=== PATIENT | male | born 1945 | race Caucasian/White ===

== ENCOUNTER 2023-12-29 09:23 | Outpatient (REF) | payer MEDICARE, OTHER, SELFPAY ==
[2023-12-29] VITALS (15 sets, daily range): BP systolic 60–183; BP diastolic 66–93
[2023-12-29 10:14] LABS: Glucose - Point of Care 198 mg/dl (70-99)
[2023-12-29 10:37] LABS: Hematocrit 30.7 % (39.0-52.0); Hemoglobin 9.9 g/dL (13.0-18.0); Mean Corp Hgb Conc. 32.2 g/dL (33.0-37.0); Mean Corpuscular Hgb 25.8 pg (27.0-31.0); Mean Corpuscular Volume 80.2 fL (80.0-94.0); Mean Platelet Volume 9.9 fL (7.4-10.4); Platelet Count 328 10^3/uL (130-400); Red Blood Cell Count 3.83 10^6/uL (4.70-6.10); Red Cell Dist. Width 17.2 % (11.5-14.5); White Blood Cell Count 8.2 10^3/uL (4.8-10.8)
[2023-12-29 10:40] LABS: INR 1.23; PT 15.3 Sec (11.4-14.6)
[2023-12-29 12:13] LABS: Glucose - Point of Care 183 mg/dl (70-99)
== END 2023-12-29 15:00 | disposition home or self-care (01) ==
LOC: RADI 09:23
PROVIDERS: Radiology Vascular & Interventional Radiology; ATTENDING PHYSICIAN Internal Medicine Hematology & Oncology; FAMILY PHYSICIAN Family Medicine
DX: C34.31 Malignant neoplasm of lower lobe, right bronchus or lung (principal); D68.8 Other specified coagulation defects
CPT/HCPCS: 88305; 32408; 71045; 82962; 85027; 85610; 88333; 99152; 99153

== ENCOUNTER 2024-02-21 09:45 | Emergency (ER) | payer MEDICARE, OTHER, SELFPAY ==
[2024-02-21 09:47] VITALS: BP 137/84
[2024-02-21 10:10] VITALS: BMI 26.8
--- NOTE | 2024-02-21 10:28 | ED.GENMED ---
History of Present Illness
General
Chief Complaint: Back Pain
Source: patient
Time Seen by Provider: 02/21/24 09:53
Travel History
Have you had any contact with someone who has COVID-19?: No
Do you have any symptoms of coronavirus? Fever > 100 degrees, chills, cough, shortness of breath, sore throat, loss of taste or smell, muscle aches, or headache?: No
History of Present Illness
History of Present Illness:
This patient is a 78-year-old male who was recently diagnosed with stage IIIb adenocarcinoma, right lung mass. He has been resistant to treatment with chemotherapy or radiation. He states that he was put on some sort of 'cancer medicine' this
week, but has not been taking it because of residual nausea related to this. Patient presents to the emergency department with complaints of right mid back pain that is been present for months but seem to get worse last night. The pain seems to be
worse when he walks but not specifically with certain movements. The pain is not pleuritic in nature and patient is fully anticoagulated. He denies hemoptysis, fever, chills, dyspnea, anterior chest pain, abdominal pain, vomiting. He does have a
cough for the past couple weeks which he was told by his oncologist he should expect. He describes the pain as 'sharp' and relatively constant.
Past History
Past History
ED Past Medical History: Arrthythmia (Atrial fib), CAD, COPD, CVA (Left side weakness), GERD, HTN, Hypercholesterolemia, NIDDM, [place] and Other (CPAP for sleep apnea, sleep apnea)
ED Past Surgical History: Appendectomy, Cardiac (CABG), Cholecystectomy, Orthopedic (right knee, Left elbow) and Other (Cataracts)
Patient has exhibited threatening behavior?: No
PSI?: No
Social History
Tobacco: Former smoker
Alcohol: Occasional
Drug: None
Personal:
Phy Exam
Physical Exam
Physical Exam:
GENERAL: Alert , in no apparent distress
EYE: pupils equal and reactive
NECK: Supple, no significant adenopathy.
ENT: o/p clr, mmm.
CARDIAC: Regular rate and rhythm .
LUNGS: Clear breath sounds bilaterally, no acute respiratory distress, no wheezes/rales/rhonchi.
ABDOMEN: Soft, without focal tenderness, no r/g, no cvat
NEUROLOGICAL: Alert and oriented, no focal neuro deficits
SKIN: Warm and dry, skin intact.
MUSCULOSKELETAL: No edema, well perfused.
PSYCH: Normal and appropriate interaction.
BACK: no midline ttp, no rash/swelling/skin changes. Moves about bed easily.
Course
Orders/Labs/Results
Orders:
Orders
02/21/24 10:31
Electrocardiogram (*1) Stat
Reason for Study: Other
Other Reason for Exam: chest pain
Cardiac Monitoring- Treatment ONCE
EKG- Treatment ONCE
Morphine Sulfate 4 mg IV NOW STA
Pulse Ox/cont/shift [RESP] Stat
Quantity: 1
02/21/24 10:32
CR Chest - 2 Views Urgent
Comment:
Reason For Exam: R mid post thorax pain, hx lung ca
02/21/24 11:24
Complete Blood Count/No Diff Urgent
Comprehensive Metabolic Panel Urgent
Abnormal Lab Results
02/21/24
11:24
RBC 4.23 L 10^6/uL
(4.70-6.10)
Hgb 10.7 L g/dL
(13.0-18.0)
Hct 34.6 L %
(39.0-52.0)
MCH 25.3 L pg
(27.0-31.0)
MCHC 30.9 L g/dL
(33.0-37.0)
RDW 17.2 H %
(11.5-14.5)
Carbon Dioxide 18 L mmol/L
(22-30)
BUN 23 H mg/dl
(9-20)
Creatinine 1.4 H mg/dL
(0.7-1.3)
Glucose 224 H mg/dl
(70-99)
02/21/24 11:24
02/21/24 11:24
Vital Signs
Initial and Last Documented VS:
Initial Vital Signs
Temp Pulse Resp BP Pulse Ox
98.7 F 95 16 137/84 98
02/21/24 09:47 02/21/24 09:47 02/21/24 09:47 02/21/24 09:47 02/21/24 09:47
Last Documented Vital Signs
Temp Pulse Resp BP Pulse Ox
98.7 F 75 15 162/78 98
02/21/24 09:47 02/21/24 11:30 02/21/24 11:30 02/21/24 11:00 02/21/24 11:30
*Critical Care Note
Total Time (30-74mins, 75-104mins- exclusive of procedures): Not Applicable
Update Note
Update Note:
Patient presents to the Emergency Department with mid back pain___
Number and Complexity of Problems Addressed at the Encounter
� Chronic conditions affecting care:
� Acute Exacerbation and/or Progression of Chronic Illness:
� Differential Diagnosis includes: But not limited to muscular strain, cancer related pain, mets, nerve impingement, effusion, etc.
Amount and/or Complexity of Data to be Reviewed and Analyzed
� I performed an independent evaluation of and my interpretation is:
EKG: read by me, nsr, no acute ST elevation, nonspec st/t flat
CT:
Xrays: unchanged, mass noted
Laboratory Studies:baseline anemia, baseline renal insuffic, hyperglycem without acidosis
Other:
� Review of other/old records reveals:
� Clinical information was obtained by an independent historian:
� Prescriptions/Medications Considered but not given:
� Further testing considered but not performed:
Risk of Complications and/or Morbidity or Mortality of Patient Management
� Social determinants of health affecting care:
� Discussion with other providers (PCP, Hospitalists, Consultants, etc):
� Escalation of care including admission/observation vs risk of discharge considered: 1159am Pt comfortable, smiling, in nad. Pain resolved. Discussed with patient and his significant other, Mirna, who is now bedside regarding
her testing here, and importance of follow-up as ED based testing is not all inclusive for all potential etiologies for this pain although I doubt a serious etiology. No neurological findings, no hemoptysis or bleeding. I think PE is very unlikely
given patient is fully anticoag waited. Discussed with patient and another importance of follow-up and reasons to return to the ER.
ED Attending Note
-
Portions of this chart may have been created with voice recognition software.� Occasional wrong word or��sound alike� substitutions may have occurred due to the inherent limitations of voice recognition software.
Discharge Plan
Departure
Patient Disposition: Home (Routine Discharge)
Date of Disposition: 02/21/24
Time of Disposition: 12:03
Patient with high blood pressure during this ER visit?: Yes
Condition: Good
Discharge Problem:
Back pain
Instructions: Upper Back Pain (DC), BLOOD PRESSURE
Prescriptions:
New
tramadol 50 mg tablet
100 mg PO BID Qty: 24 0RF
No Action
rosuvastatin [Crestor] 40 MG tablet
40 mg PO HS
Eliquis 5 MG tablet
5 mg PO BID Qty: 180 0RF
Hold Instructions: Resume on 05/31/23.
metoprolol succinate 25 mg Tablet Extended Release 24 Hr
25 mg PO DAILY
isosorbide mononitrate 30 mg Tablet Extended Release 24 Hr
30 mg PO DAILY Qty: 30 0RF
losartan 50 mg Tablet
50 mg PO DAILY
aspirin 81 mg Tablet,Delayed Release (Dr/Ec)
81 mg PO HS
sodium bicarbonate 650 mg Tablet
650 mg PO DAILY
torsemide 5 mg Tablet
5 mg PO DAILY
amiodarone 100 mg Tablet
100 mg PO DAILY
Referrals:
Mary Jane Keane DO [Active] - Follow up in 2-3 days
Rachelle Taylor MD [Family Provider] -
Activity Restrictions/Additional Instructions:
PLEASE CONTACT YOUR CANCER DOCTOR ON FRIDAY. IF YOU DEVELOP INCREASING/NEW/PERSISTENT PAIN, ANY TROUBLE BREATHING, NUMBNESS, WEAKNESS, SWELLING, FEVER, VOMITING, CHEST PAIN, OR OTHER WORRISOME SIGNS, GO TO THE ER IMMEDIATELY!
Interventions
Interventions:
*Risk Screen - Suicide Last Done: 02/21/24 09:47
*General Assessment Last Done: 02/21/24 09:47
*Neglect/Abuse Screening Last Done: 02/21/24 09:47
ED- Fall Risk Assessment Last Done: 02/21/24 10:10
*ED COVID-19 Vaccine History Last Done: 02/21/24 10:10
ED-Musculoskeletal Assessment Last Done: 02/21/24 10:10
Discharge Date and Time
Print Language: URUGUAYAN
[2024-02-21 10:33] VITALS: BP 179/87
--- NOTE | 2024-02-21 10:41 | EDRN ---
this RN called IV team and notified them that the pt wants his RCW port accessed
[2024-02-21 10:50] VITALS: BP 171/85
[2024-02-21 11:00] VITALS: BP 162/78
[2024-02-21] MEDS: MORPHINE SULFATE 4 MG IV (11:25)
[2024-02-21 11:34] LABS: Hematocrit 34.6 % (39.0-52.0); Hemoglobin 10.7 g/dL (13.0-18.0); Mean Corp Hgb Conc. 30.9 g/dL (33.0-37.0); Mean Corpuscular Hgb 25.3 pg (27.0-31.0); Mean Corpuscular Volume 81.8 fL (80.0-94.0); Mean Platelet Volume 9.5 fL (7.4-10.4); Platelet Count 279 10^3/uL (130-400); Red Blood Cell Count 4.23 10^6/uL (4.70-6.10); Red Cell Dist. Width 17.2 % (11.5-14.5); White Blood Cell Count 7.6 10^3/uL (4.8-10.8)
[2024-02-21 11:56] LABS: ALT (SGPT) 27 U/L (0-50); AST (SGOT) 45 U/L (17-59); Albumin 3.9 g/dl (3.5-5.0); Alkaline Phosphatase 99 U/L (38-126); Blood Urea Nitrogen 23 mg/dl (9-20); Calcium 9.4 mg/dl (8.4-10.2); Carbon Dioxide 18 mmol/L (22-30); Chloride 105 mmol/L (98-107); Estimated Creatinine Clearance 43 ml/min; Glucose 224 mg/dl (70-99); Potassium 4.8 mmol/L (3.5-5.1); Sodium 135 mmol/L (135-145); Total Bilirubin 0.6 mg/dl (0.2-1.3); Total Protein 6.7 g/dl (6.3-8.2); eGFR 51.13
[2024-02-21 12:00] VITALS: BP 162/91
== END 2024-02-21 12:52 | disposition home or self-care (01) ==
LOC: EMR 09:45
PROVIDERS: EMERGENCY PHYSICIAN Emergency Medicine; FAMILY PHYSICIAN Family Medicine
DX: M54.6 Pain in thoracic spine (principal); C34.91 Malignant neoplasm of unspecified part of right bronchus or lung; I48.91 Unspecified atrial fibrillation; I25.10 Atherosclerotic heart disease of native coronary artery without angina pectoris; J44.9 Chronic obstructive pulmonary disease, unspecified; K21.9 Gastro-esophageal reflux disease without esophagitis; I10 Essential (primary) hypertension; E11.36 Type 2 diabetes mellitus with diabetic cataract; I69.354 Hemiplegia and hemiparesis following cerebral infarction affecting left non-dominant side; G47.30 Sleep apnea, unspecified; E78.00 Pure hypercholesterolemia, unspecified; I25.2 Old myocardial infarction; Z87.891 Personal history of nicotine dependence; Z95.1 Presence of aortocoronary bypass graft; Z90.49 Acquired absence of other specified parts of digestive tract; Z88.8 Allergy status to other drugs, medicaments and biological substances
CPT/HCPCS: 99284; 96374; 71046; 80053; 85027; 93005

== ENCOUNTER 2024-02-22 20:31 | Inpatient (IN) | payer MEDICARE, OTHER, SELFPAY ==
[2024-02-22] VITALS (29 sets, daily range): BP systolic 96–145; BP diastolic 57–121; BMI 28.5; BMI 27.6
[2024-02-22 16:05] LABS: % Basophils 0.3 % (0-2); % Immature Granulocytes 0.3 % (0-0.5); % Lymphocytes 19.1 % (20.5-51.1); % Monocytes 12.4 % (1.7-9.3); % Neutrophils 67.9 % (42.2-75.2); Absolute Lymphocytes 1.5 10^3/uL (1.2-3.4); Absolute Neutrophils 5.2 10^3/uL (1.4-6.5); Hematocrit 32.4 % (39.0-52.0); Hemoglobin 10.6 g/dL (13.0-18.0); Mean Corp Hgb Conc. 32.7 g/dL (33.0-37.0); Mean Corpuscular Volume 79.4 fL (80.0-94.0); Mean Platelet Volume 9.3 fL (7.4-10.4); Nucleated Red Blood Cells % 0 % (-); Platelet Count 249 10^3/uL (130-400); Red Blood Cell Count 4.08 10^6/uL (4.70-6.10); Red Cell Dist. Width 17.7 % (11.5-14.5); White Blood Cell Count 7.7 10^3/uL (4.8-10.8)
[2024-02-22 16:22] LABS: ALT (SGPT) 31 U/L (0-50); AST (SGOT) 47 U/L (17-59); Albumin 3.6 g/dl (3.5-5.0); Alkaline Phosphatase 103 U/L (38-126); Blood Urea Nitrogen 29 mg/dl (9-20); Calcium 9.2 mg/dl (8.4-10.2); Carbon Dioxide 15 mmol/L (22-30); Chloride 105 mmol/L (98-107); Estimated Creatinine Clearance 37 ml/min; Glucose 188 mg/dl (70-99); Potassium 4.4 mmol/L (3.5-5.1); Sodium 134 mmol/L (135-145); Total Bilirubin 0.5 mg/dl (0.2-1.3); Total Protein 6.3 g/dl (6.3-8.2); eGFR 43.56
--- NOTE | 2024-02-22 16:40 | EDRN ---
Lab called and troponin was 0.12 w/ this RN TT a note to Dr. Lund to inform him of the result.
--- NOTE | 2024-02-22 17:16 | ED.GENMED ---
History of Present Illness
General
Chief Complaint: Heart Rate Problem
Source: patient
Time Seen by Provider: 02/22/24 16:57
Travel History
Have you had any contact with someone who has COVID-19?: No
Do you have any symptoms of coronavirus? Fever > 100 degrees, chills, cough, shortness of breath, sore throat, loss of taste or smell, muscle aches, or headache?: No
History of Present Illness
History of Present Illness:
This patient is a 78-year-old male presents emergency department after an episode of dizziness that he experienced somewhat abruptly at approximate 11:30 AM while trying to get out of the shower. He does not describe it as a sense of movement or
spinning, nor a sense of lightheadedness, but rather he just felt like 'my legs did not want to hold me'. He got himself to the bed, laid there, and called medics. With this dizziness, he also noted nausea and 'tightness' on the left side of his
chest. He also noted a sense of numbness in his left arm radiating down to the elbow. Patient denies associated hemoptysis, dyspnea, neck pain, headache. He feels hungry and therefore a 'empty' discomfort in the upper abdomen. Patient still has
mild tightness in his chest, very very slight. This is without radiation, exacerbating, relieving factors. When asked about pleuritic chest pain, he notes that the center of his chest, and points to the sternum, feels uncomfortable when he takes a
deep breath. He is unclear when this started. Patient denies leg swelling, focal weakness, recent head strike. Of note, patient has a history of lung CA, CAD, A-fib, maintained on amiodarone and anticoagulation. He is compliant with his
anticoagulation and amiodarone without recent changes. I saw patient in the emergency department yesterday with complaints of back pain, this is since markedly improved and not a complaint today.
Past History
Past History
ED Past Medical History: Arrthythmia (Atrial fib), CAD, COPD, CVA (Left side weakness), GERD, HTN, Hypercholesterolemia, NIDDM, [place] and Other (CPAP for sleep apnea, sleep apnea)
ED Past Surgical History: Appendectomy, Cardiac (CABG), Cholecystectomy, Orthopedic (right knee, Left elbow) and Other (Cataracts)
Patient has exhibited threatening behavior?: No
PSI?: No
Social History
Tobacco: Former smoker
Alcohol: Occasional
Drug: None
Personal:
Phy Exam
Physical Exam
Physical Exam:
GENERAL: Alert , in no apparent distress
EYE: pupils equal and reactive
NECK: Supple, no significant adenopathy.
ENT: o/p clr, mmm.
CARDIAC: Irregularly irregular, tachycardic
LUNGS: Clear breath sounds bilaterally, no acute respiratory distress, no wheezes rales or rhonchi
ABDOMEN: Soft, without focal tenderness, no r/g, no cvat
NEUROLOGICAL: Alert and oriented, no focal neuro deficits
SKIN: Warm and dry, skin intact.
MUSCULOSKELETAL: No edema, well perfused.
PSYCH: Normal and appropriate interaction.
Course
Orders/Labs/Results
Orders:
Orders
02/22/24 Dinner
Cholesterol Lowering
At Your Request: Limited Participation
Cholesterol Lowering: Sodium, 2 Gram
1800 austyn/15 CHO Diabetic
02/22/24 15:41
Electrocardiogram (*1) Urgent
Reason for Study: Chest Pain
Cardiac Monitoring- Treatment ONCE
EKG- Treatment ONCE
02/22/24 15:58
Complete Blood Count/With Diff Urgent
Comprehensive Metabolic Panel Urgent
Troponin I Urgent
02/22/24 17:15
Diltiazem 125 mg/125 ml Nss [Cardizem] 125 mg in 125 ml IV NOW
Initial dose in mg/hr, then titrate:: 5
Titrate to keep:: Heart rate 80-100 bpm
Titrate by mg/hr:: 5 mg/hr
Frequency of titrations (minutes):: 15
Maximum dose in mg/hr:: 15
Diltiazem HCl [Cardizem] 22 mg IV NOW STA
02/22/24 18:24
Nitroglycerin Sublingual [Nitrostat (Sublingual)] 0.4 mg SL [id number] PRN
02/22/24 18:27
EKG [Electrocardiogram (*1)] Stat
Reason for Study: Atrial Fibrillation
EKG- Treatment ONCE
02/22/24 18:57
Troponin I Urgent
02/22/24 19:34
Electrocardiogram (*1) Urgent
Reason for Study: Chest Pain
EKG- Treatment ONCE
02/22/24 19:42
Tramadol HCl [Ultram] 50 mg PO NOW STA
02/22/24 20:12
Admit/Transfer Patient As Directed
Co-Sign Provider:
Level of Care: Inpatient admission
Assign to:: IMU- Intermediate Care
Physician / Group: jessica rodriguez
Diagnosis: rapid afib rvr, non nakul trop elev, lung ca started immunotherapy
Reason for Hospitalization: rapid afib rvr, non nakul trop elev, lung ca started immunotherapy
Expected length of stay greater than two midnights?: Yes
ELOS- Estimated Length of Stay in days: 5
I certify the patient meets the requirements for IP care: Yes
Code Status As Directed
Resuscitation Status: Do not resuscitate
Reached after discussion with pt or family/Healthcare POA: Yes
Based on pt advanced directive or healthcare POA form: Yes
Decision communicated with: per pt with son on phone
CARDIOLOGY CONSULT Routine
Consulting Provider: Shimon De Anda
Was physician already notified: Yes
Reason for consult: afib rvr, non mi trop elevation abn ekg
DNR Bracelet Application ONCE
02/22/24 22:25
Acetaminophen [Tylenol] 650 mg PO Q4HPRN PRN
Bisacodyl [Dulcolax] 10 mg RECTAL [id number] PRN
Dextrose 50%-Water [Dextrose 50% Syringe] 12.5 grams IV [id number] PRN
Diltiazem 125 mg/125 ml Nss [Cardizem] 125 mg in 125 ml IV PER PROTOCOL
Initial dose in mg/hr, then titrate:: 5
Titrate to keep:: Heart rate 80-100 bpm
Titrate by mg/hr:: 5 mg/hr
Frequency of titrations (minutes):: 15
Maximum dose in mg/hr:: 15
Docusate W/Senna [Senokot-S] 1 tablet PO BIDPRN PRN
Glucagon [GlucaGen] 1 mg IM PRN PRN
Polyethylene Glycol Powder [Miralax] 17 grams PO DAILYPRN PRN
02/22/24 22:25
VTE Contraindication Routine
VTE Mechanical Device Contraindication: Medical Contraindication
Pharmocologic Contraindication: Medical Contraindication
Comment: pt on eliquis
Activity As Directed
Activity Level: As Tolerated
Bedside Glucose Monitoring As Directed
Frequency: AC&HS
Comment: Change to q6h if pt on TPN, tube feeding or not eating
Intake/ Output As Directed
Frequency: Per unit guidelines
Vital Signs As Directed
Frequency: Per unit guidelines
Weight As Directed
Frequency: Daily
Pulse Ox/spot Check [RESP] Routine
Quantity: 1
Ot Eval And Treat Routine
Pt Eval And Treat Routine
Activity Level: As Tolerated
02/22/24 23:39
Troponin I Q6H
02/23/24 03:27
Cardiovascular Evaluation IN AM
Complete Blood Count/With Diff IN AM
Comprehensive Metabolic Panel IN AM
Glycohemoglobin (HgbA1c) IN AM
02/23/24 06:00
Echo 2D MMode Color/Doppler IN AM
Reason for Study: afib rvr, non mi trop fawn
02/23/24 07:30
Insulin Aspart Corrective Low [Novolog Flexpen-Low Resistance] See Protocol SC AC
02/24/24 06:58
Complete Blood Count/With Diff IN AM
Comprehensive Metabolic Panel IN AM
Abnormal Lab Results
02/22/24 02/22/24
15:58 18:57
RBC 4.08 L 10^6/uL
(4.70-6.10)
Hgb 10.6 L g/dL
(13.0-18.0)
Hct 32.4 L %
(39.0-52.0)
MCV 79.4 L fL
(80.0-94.0)
MCH 26.0 L pg
(27.0-31.0)
MCHC 32.7 L g/dL
(33.0-37.0)
RDW 17.7 H %
(11.5-14.5)
Absolute Monos (auto) 1.0 H 10^3/uL
(0.1-0.6)
Lymphocytes % 19.1 L %
(20.5-51.1)
Monocytes % 12.4 H %
(1.7-9.3)
Sodium 134 L mmol/L
(135-145)
Carbon Dioxide 15 L mmol/L
(22-30)
BUN 29 H mg/dl
(9-20)
Creatinine 1.6 H mg/dL
(0.7-1.3)
Glucose 188 H mg/dl
(70-99)
Troponin I 0.120 H* ng/ml 0.204 H* D ng/ml
02/22/24 15:58
02/22/24 15:58
Vital Signs
Initial and Last Documented VS:
Initial Vital Signs
BP
130/90
02/22/24 15:38
Last Documented Vital Signs
Temp Pulse Resp BP Pulse Ox
97.5 F 64 16 108/63 95
02/24/24 12:09 02/24/24 12:09 02/24/24 12:09 02/24/24 12:09 02/24/24 12:09
*Critical Care Note
Total Time (30-74mins, 75-104mins- exclusive of procedures): Not Applicable
Update Note
Update Note:
Patient presents to the Emergency Department with ____dizziness
Number and Complexity of Problems Addressed at the Encounter
� Chronic conditions affecting care:
� Acute Exacerbation and/or Progression of Chronic Illness:
� Differential Diagnosis includes: But not limited limited to rhythm disorder such as recurrent A-fib, dehydration, electrolyte disorder, etc.
Amount and/or Complexity of Data to be Reviewed and Analyzed
� I performed an independent evaluation of and my interpretation is:
EKG: Read by me, A-fib, RVR, no acute ischemia noted
CT:
Xrays: Reviewed from yesterday, no acute disease known lung mass noted.
Laboratory Studies: CKD essentially at baseline, mild hyperglycemia. Troponin noted elevated at 0.12, repeat pending. hgb baseline anemia
Other:
� Review of other/old records reveals: prior admission
Jul 2023, EF 35-40%, afib with rvr
� Clinical information was obtained by an independent historian:s.o. at bedside
� Prescriptions/Medications Considered but not given:
� Further testing considered but not performed:
Risk of Complications and/or Morbidity or Mortality of Patient Management
� Social determinants of health affecting care:
� Discussion with other providers (PCP, Hospitalists, Consultants, etc):
� Escalation of care including admission/observation vs risk of discharge considered:620 pm reassessment, pt feeling better, hr low 100's on cardizem gtt. No longer has L sided cp, still with vague mild centrla chest discomfort
with deep breathe. Consideration for PE as part of his dx, espec given hx of active cancer, however pt fully anticoagulated making it less likely, not dyspneic, etc. Will repeat ecg here to r/o ongoing ischemic changes...not a candidate for a cath
tonight given no st elevations thus far and do not suspect pain is c/w ischemia (vague, mild, intermittent, only with deep breathe). Will continue cardizem gtt, add nitro, contniue ac, admit.
715 pm pt became momentarily hypotensive with nitro here. Long d/w cards (see atatached) re:plan of care, in agreement, also does not see recommend for cath tonight, very similar presentation in past and cath without intervention.
Very similar admit last fall. Cath at that time with nothing to do /med rx.
I would rate control as you are doing. And maybe some pain control.
Check troponin in am.
Looking at his anatomy, I�m not surprised he has chest pain with that heart rate.
740 pm Pt spont converted to nsr. CP gone. repeat ecg still with Lateral T wave sl depres/t wave inv. Notes usual back pain, requesting meds for.
ED Attending Note
-
Portions of this chart may have been created with voice recognition software.� Occasional wrong word or��sound alike� substitutions may have occurred due to the inherent limitations of voice recognition software.
Discharge Plan
Departure
Patient Disposition: Admit
Date of Disposition: 02/22/24
Time of Disposition: 19:15
Admit to: Telemetry
Admit to doctor: lailay
Presentation/result/management discussed w/ accepting MD/DO: Hospitalist
Condition: Fair
Discharge Problem:
Chest pain, Paroxysmal atrial fibrillation
Interventions
Interventions:
*Risk Screen - Suicide Last Done: 02/22/24 15:42
*General Assessment Last Done: 02/22/24 15:42
*Neglect/Abuse Screening Last Done: 02/22/24 15:42
ED- Fall Risk Assessment Last Done: 02/22/24 15:42
*ED COVID-19 Vaccine History Last Done: 02/22/24 15:42
*Nursing Disposition Last Done: 02/22/24 22:20
ED- Cardiac Assessment Last Done: 02/22/24 19:40
ED- Pulmonary Assessment Last Done: 02/22/24 19:40
Discharge Date and Time
Discharge Date/Time: 02/22/24 22:20
[2024-02-22] MEDS: CARDIZEM 22 MG IV (17:28)
[2024-02-22] MEDS: CARDIZEM 125 IV (17:30)
--- NOTE | 2024-02-22 17:36 | EDRN ---
Dr. Tatum was in to see pt.
--- NOTE | 2024-02-22 17:45 | PHANOTE ---
02/22/2024, [facility], spoke to pt.'s significant other to obtain pt.'s med. history; per significant other, pt. is taking Lumakras 320 mg capsule (3 capsules = 960 mg) daily and gets this through [facility] pharmacy; was not able
to confirm with pharmacy fill data or [facility] records; [facility] closed at time of interview.
--- NOTE | 2024-02-22 18:20 | EDRN ---
HR has been mostly <100 and 88 at 18:10 so no rate adjust was done to Cardizem IV infusion.
[2024-02-22] MEDS: NITROSTAT (SUBLINGUAL) 0.400000000000000022 MG SL (18:29)
--- NOTE | 2024-02-22 18:29 | EDRN ---
Pt states he is having substernal chest pain 4-510 at this time w/ 1 NTG administered now.
--- NOTE | 2024-02-22 18:35 | EDRN ---
Pt states chest pain is worse when he coughs or burps.
--- NOTE | 2024-02-22 19:02 | EDRN ---
Pt states pain remains 4-5/10. Repeat troponin drawn and sent at this time. HR 110-133 in A Fib w/ RVR continues. Pt states pain is in lower substernal area and worse w/ coughing and burping at 4-5/10.
[2024-02-22 19:29] LABS: Troponin I 0.204 ng/ml
--- NOTE | 2024-02-22 19:37 | HPS.HSE ---
Family Physician
-
Family Physician: NOT KNOW UNKNOWN - PT DOES
Chief Complaint
-
chest pain, lightheadedness
History of Present Illness
78-year-old male complaining of dizziness that started at 1130 this a.m. while trying to get out of the shower. He reported a sense of lightheadedness along with some chest tightness and numbness in his left arm to left elbow. He reports today he
had midsternal chest pain lasting 3 to 4 hours. He has chronic right-sided scapular pain secondary to right lung mass. He states he started immunotherapy Lumakra 960mg daily took first dose on 02/20/2024, but did not take any yesterday or
today due to feeling sick. 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 He follows with [facility]. The patient denies fever, chills, shortness of breath, cough, abdominal pain,
nausea, vomiting, diarrhea, urinary symptoms. 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
35%, COPD, ex-smoker, sleep apnea noncompliant, CKD 3B, GERD, HLD, DM2, anemia, OA, [place], chronic right scapular pain secondary to lung CA
Medical History
Past Medical History
Past Medical History: Reports Other
Additional Past Medical History:
Stage IV adenocarcinoma right middle lobe to left lower lobe to right breast on current immunotherapy started 02/20/2024
ASCVD
CAD/CT
Paroxysmal Atrial Fibrillation
CKD III
Hypertension
HLD
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
DM-II with Peripheral Neuropathy
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
MYKE noncompliant CPAP
COPD
Ex-smoker
OA
[place]
Past Surgical History: Reports Other
Additional Past Surgical History:
CABG x 4 (2019)
Appendectomy
Cholecystectomy
R Knee Arthroscopy
Left Elbow Arthroscopy
Social History
Tobacco: Former Smoker (Quit smoking 50 years ago. )
Alcohol: Occasional
Drug: None
Personal: Single
Employment: Retired
Family History
Family History: Other (Son: Very recently passed from GI bleeding Mother: AAA Father: CAD)
Allergies / Home Medications
Allergies reflects when Allergies were last updated in [facility].
Home Medications with original date entered in [facility]
Allergy/Medication List:
Allergies
Allergy/AdvReac Type Severity Reaction Status Date / Time
tamsulosin [From Flomax] Allergy Unknown Verified 02/22/24 15:40
Home Medications
rosuvastatin 40 mg tablet (Crestor) 40 mg PO HS High cholesterol 05/21/21
apixaban 5 mg tablet (Eliquis) 5 mg PO BID #180 tabs 05/22/21
metoprolol succinate 25 mg tablet,extended release 24 hr 25 mg PO DAILY Blood pressure 06/13/22
aspirin 81 mg tablet,delayed release 81 mg PO HS 12/29/23
losartan 50 mg tablet 50 mg PO HS 12/29/23
tramadol 50 mg tablet 100 mg (2 x 50 mg) PO BID #24 tabs 02/21/24
acetaminophen 325 mg tablet (Tylenol) 975 mg PO BIDPRN PRN mild pain 02/22/24
cyanocobalamin (vitamin B-12) 1 tab PO DAILY 02/22/24
insulin NPH-regular 70-30 U-100 insulin 100 unit/mL subcutaneous pen (Humulin 70/30 U-100 KwikPen) 0 unit SC AC 02/22/24
ondansetron 4 mg disintegrating tablet 4 mg PO Q8H PRN nausea/vomiting 02/22/24
sotorasib 320 mg tablet (Lumakras) 960 mg PO DAILY 02/22/24
Review of Systems
-
History Source: Patient
A 12 point ROS was completed and negative except as noted: Yes
Constitutional: Denies Fever or Fatigue
EENT: Denies Sore Throat or Runny Nose
Respiratory: Denies Cough or Trouble Breathing
Cardiac: Reports Chest Pain (Midsternal); Denies Diaphoresis, Palpitations or Syncope
Abdomen/GI: Denies Abdominal Pain, Nausea, Vomiting, Diarrhea or Constipated
: Denies Dysuria, Frequency, Flank Pain, Incontinence or Difficulty Voiding
Musculoskeletal: Denies Joint Pain or Edema
Skin: Denies Itching or Rash
Neurological: Reports Dizzy and Other (Chronic right scapular pain secondary to lung CA); Denies Headache or Weakness
Endocrine: Reports No Symptoms
Hematologic/Lymphatic: Reports No Symptoms
Psych: Reports Calm
Physical Exam
Vital Signs
Vital Signs
Temp Pulse Resp BP Pulse Ox
99.2 F 121 20 135/83 94
02/22/24 15:42 02/22/24 19:15 02/22/24 19:15 02/22/24 19:15 02/22/24 19:15
Physical Exam
General: No Apparent Distress and Pain (Right scapular); No Fever, Chills or Slurred Speech
HEENT: NormoCephalic, Anicteric, Moist mucous membranes, PERRLA, [place] Conjunctivae and No Ptosis
Respiratory: Clear; No Wheezes, Rales or Rhonchi
Cardiac: S1/S2 and Regular Rhythm (Converted to normal sinus rhythm 73 bpm in ER on IV Cardizem drip); No Murmur, Rub, Gallop or Peripheral Edema
Breast: Deferred by me
GI: Soft, Non Tender, Non Distended, Normal Bowel Sounds and No Hepatosplenomegaly
Genito-urinary: Deferred by me
Musculoskeletal: No Clubbing, No Cyanosis and No Edema
Skin: Warm and Dry; No Rash or Jaundice
Neuro: AO x 3, No Motor Deficits, Nonfocal/grossly intact and No Sensory Deficits; No Slurred Speech, Facial Droop or Tremors
Psych: Calm
Laboratory Results
-
02/22/24 15:58
02/22/24 15:58
Laboratory Results
Total Bilirubin 0.5 mg/dl (0.2-1.3) 02/22/24 15:58
AST 47 U/L (17-59) 02/22/24 15:58
ALT 31 U/L (0-50) 02/22/24 15:58
Alkaline Phosphatase 103 U/L (38-126) 02/22/24 15:58
Troponin I 0.204 ng/ml H* D 02/22/24 18:57
Impression/Plan
-
Impression/plan:
Admit to IMU
#A-fib with RVR/Hx of paroxysmal A-fib
HR 137
-IV Cardizem drip with chemical cardioversion in ER
-Continue TANK TRUCK OPERATOR Eliquis 5 mg twice daily
-COnt metoprolol succinate 25 mg daily
-HOLD losartan 50 mg at bedtime
-Consult cardiology CBC
-Check TSH with free T4 reflex
EKG: A-fib with RVR 115 bpm, QTc 453 MS, T wave inversions inferior lateral leads new in lateral leads since October 2023
Converted to NSR at 1934 on EKG
#Non-CT troponin elevation with abnormal EKG
Follow troponin levels monitor EKG
Troponin 0.120 > 0.204, will repeat at 10 PM
-Cardiology to follow
-Continue aspirin 81 mg at bedtime
EKG repeat at 1934 NSR 71 bpm still with T wave abnormality lateral leads
#CAD/CABG four-vessel August 2020/Cardiomyopathy reduced EF
#Hx CVA hemorrhage over optic nerve post CABG August 2020/with left eye vision loss
I/O, daily weights
-Continue metoprolol succinate 20 mg daily
-Hold losartan
2D echo 07/24/2023: EF 35-40%, moderate reduced LVSF basal to mid inferior lateral and inferior wall hypokinesis, stage I diastolic dysfunction, mild AR,
dilated aortic root 4 cm
#Lung cancer adenocarcinoma Dx via bronchoscopy 07/28/2023 mucinous features right lower lobe mass and 2 lymph nodes mets to left lung and right breast 3 nodules
# Chronic right scapular pain secondary to cancer
-Patient is unsure of the name is on current immunotherapy took 1 dose on 02/20/2024
#Dilated aortic root 4 cm
#Chronic hypocarbia
-Continue sodium bicarb
#HTN�benign
-HOLD losartan 50 mg at bedtime
-cont metoprolol succinate 25 mg daily
#HLD
-Continue Crestor 40 mg at bedtime
#CKD 3B
Creat 1.6 appears baseline
-Follow BMP
#BPH
-Bladder scan protocol
#DM2 with diabetic neuropathy
Accu-Cheks SSI, check HgbA1c
-Continue 70/30
#COPD-no acute exacerbation
#Ex-smoker stopped 50 years ago
#Sleep apnea noncompliant
#Chronic anemia microcytic
Hgb 10.6 appears baseline
Other PMH:
OA
[place]
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
DVT prophylaxis
Continue TANK TRUCK OPERATOR Eliquis
Full code
[2024-02-22] MEDS: ULTRAM 50 MG PO (19:51)
--- NOTE | 2024-02-22 19:58 | W.PN.UPDATE ---
Addendum entered and electronically signed by Jarvis Huang MD 02/22/24 20:39:
Current Immunotherapy is Sotorasib ( Lumakras)
Reviewed Pharmacology ; NO arrhythmogenic ADES noted
Addendum entered and electronically signed by Jarvis Huang MD 02/22/24 20:31:
This note serves as an addendum to the H&P by revenue field agent JUDSON Peggy TRAOREURGIS on 02/22/24
Original Note:
Update Note
Progress Note Update
HPI
78F HX IV Lung adeno Ca with mets , IDDM, CAD , CABG , HLD, HTN
[facility] sent to ER for evaluation of fast HR with SSCP
Per EMS :
Reports 7/10 CP with radiating to Lt shoulder
EMS gave Baby ASA x4 was given to chew
EMS reports in AF with RVR 120-200 with BP in 70 thus 300cc NS Bolus plus IV Cardixem 5 mg was given
At ER :
Reports SSmid sternum CP but pain at central lower back
HR 130s , SBP in 130
PMHX
HX IV lung Adeno CA - no surgery - last immuno on Dr 02/20/24 at [facility] @
ASCVD
Paroxysmal Atrial Fibrillation
CKD III
Hypertension
DM-II with Peripheral Neuropathy
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
MYKE
COPD
PSHX
CABG x 4 (2019)
Appendectomy
Cholecystectomy
R Knee Arthroscopy
Left Elbow Arthroscopy
Allergies
Allergy/AdvReac Type Severity Reaction Status Date / Time
tamsulosin [From Flomax] Allergy Unknown Verified 02/22/24 15:40
Home Medications
rosuvastatin 40 mg tablet (Crestor) 40 mg PO HS High cholesterol 05/21/21
apixaban 5 mg tablet (Eliquis) 5 mg PO BID #180 tabs 05/22/21
metoprolol succinate 25 mg tablet,extended release 24 hr 25 mg PO DAILY Blood pressure 06/13/22
aspirin 81 mg tablet,delayed release 81 mg PO HS 12/29/23
losartan 50 mg tablet 50 mg PO HS 12/29/23
tramadol 50 mg tablet 100 mg (2 x 50 mg) PO BID #24 tabs 02/21/24
acetaminophen 325 mg tablet (Tylenol) 975 mg PO BIDPRN PRN mild pain 02/22/24
cyanocobalamin (vitamin B-12) 1 tab PO DAILY 02/22/24
insulin NPH-regular 70-30 U-100 insulin 100 unit/mL subcutaneous pen (Humulin 70/30 U-100 KwikPen) 0 unit SC AC 02/22/24
ondansetron 4 mg disintegrating tablet 4 mg PO Q8H PRN nausea/vomiting 02/22/24
sotorasib 320 mg tablet (Lumakras) 960 mg PO DAILY 02/22/24
SHx
Tobacco: Former Smoker (Quit smoking 50 years ago. )
Alcohol: Occasional
Drug: None
FHX
Mother: AAA Father: CAD
Vital Signs
Temp Pulse Resp BP Pulse Ox
99.2 F 121 20 135/83 94
02/22/24 15:42 02/22/24 19:15 02/22/24 19:15 02/22/24 19:15 02/22/24 19:15
PE
Gen: NAD, in cell phone while we interviewing hin and examining hin
HEENT: Anicteric Moist mucous membranes and PERRLA
Neck: supple
Chest: mid line well healed CABG scar, Clear; No Wheezes, Rales or Rhonchi
Cor: S1/S2, Irregular Rhythm and Murmur (II/ MATEUSZ)
Abdomen: soft benign Abdomen
RF DESIGN ENGINEER: AAO3 NFND
MS: no edema
Psych: calm
Data
nl WCC
Hgb 10.6 - bl hi 9s to hi 10s
Na 134
K 4.4
HCO3 15
Cr 1.6 - b/l mid 1s
eGFR 43 - b/kl low 50s c/w CKD3a
Hyperchloremic normal AG MA @ 14
TPNI 0.120 --> 0.204
No.1 EKG @ 1031H : NSR , NOS T abn
No.3 EKG: AF w FVR , abn ST - T
No.4 EKG@1934 H : NSR
07/24/23 TTE
LVEF 35-40
Stage I diastolic dysfunction
Normal right ventricular size and function.
Mild aortic regurgitation.
Dilated aortic root. SOV is 4.0 cm.
Last hospitalist admission: 07/24/23
P Dxs:
Right lower lobe lung mass s/p biospy
Paroxysmal atrial fibrillation
chest pain positive troponin s/p cardiac cath
CAD s/p prior CABG
Chronic kidney disease 3
ASSESSMENT & PLAN
CP upon admission was relieved by baby ASA; Currently CP free:
Associated dynamic inferior abn ST T with fast AF
Suspect Angina in setting of fast AF
POS TPNI - NSTEMI vs NIMI
HX CAD , CABG
CP: fully resolved upon my exam
- cont ASA
- cont. Eliquis
- SL NTG PRN for CP
- cont FILTER TENDER JELLY IMN
- cont Metoprol succinate 25 daily
- TLM monitor
- CBC Card consult
Converted to NSR @ ER while on Cardizem gtt
S/P Fast Prx AF with CP
On chr Eliquis: compliant with Eliquis
- cont Metoprolol
- on Cardizem gtt then converted NSR
Essential Hypertension
- Stable.
- cont. metoprolol
- Held losartan to give room for BP while rate control
HX LVEF 35-40 %
Stage II diastolic dysfunction
- held Losartan to give room for BP
- cont. Metoprolol
HX IV lung Adeno CA ( Both lungs) - no surgery - no XRT
Only Tx was last immuno on 02/20/24 ==> ? arrhythmogenic or what not !
Follow with [facility] @
CKD3a with chronic metabolic acidosis on prior labs
Normal Anion Gap Metabolic Acidosis
- Renal function appears to be stable with SCr at / near known baseline.
- cont. NaHCO3 supplementation
- Trend BMP daily
DMT2
- Stable.
- cont home 70/30 insulin
- add ISS low
HX CVA with
Left Visual Field Cut
- Stable. No new / focal neurologic symptoms.
- cont. BP control, anticoagulation, etc.
BPH / Prostatitis
- Bladder scan protocol
DVT Px: on chr Eliquis
Code: Full
IMU
[2024-02-22 23:03] LABS: Glucose - Point of Care 158 mg/dl (70-99)
[2024-02-22] MEDS: ASPIR LOW (ENTERIC COATED) 81 MG PO (23:30)
[2024-02-22] MEDS: CRESTOR 40 MG PO (23:30)
[2024-02-22] MEDS: MORPHINE SULFATE 1 MG IV (23:31)
[2024-02-23] VITALS (15 sets, daily range): BP systolic 109–153; BP diastolic 54–95; PULSE 55–56; BMI 27.7
[2024-02-23 00:13] LABS: Troponin I 0.167 ng/ml
--- NOTE | 2024-02-23 00:41 | PTCARENOTE ---
Received patient from the ED on a cardizem gtt in NSR in the 70s. BP stable. freight caller provider made aware and said to continue cardizem gtt.
[2024-02-23] MEDS: ZOFRAN ODT (ORALLY DISINTEGRATING) 4 MG PO (03:23)
[2024-02-23 03:48] LABS: % Basophils 0.1 % (0-2); % Eosinophils 0.3 % (0-6); % Immature Granulocytes 0.3 % (0-0.5); % Lymphocytes 26.8 % (20.5-51.1); % Neutrophils 59.5 % (42.2-75.2); Absolute Lymphocytes 1.9 10^3/uL (1.2-3.4); Absolute Monocytes 0.9 10^3/uL (0.1-0.6); Absolute Neutrophils 4.3 10^3/uL (1.4-6.5); Hemoglobin 10.1 g/dL (13.0-18.0); Mean Corp Hgb Conc. 32.6 g/dL (33.0-37.0); Mean Corpuscular Hgb 25.7 pg (27.0-31.0); Mean Corpuscular Volume 78.9 fL (80.0-94.0); Mean Platelet Volume 9.5 fL (7.4-10.4); Nucleated Red Blood Cells % 0 % (-); Platelet Count 254 10^3/uL (130-400); Red Blood Cell Count 3.93 10^6/uL (4.70-6.10); Red Cell Dist. Width 17.6 % (11.5-14.5); White Blood Cell Count 7.2 10^3/uL (4.8-10.8)
[2024-02-23 04:15] LABS: ALT (SGPT) 31 U/L (0-50); AST (SGOT) 46 U/L (17-59); Albumin 3.4 g/dl (3.5-5.0); Alkaline Phosphatase 102 U/L (38-126); Blood Urea Nitrogen 33 mg/dl (9-20); Calcium 8.8 mg/dl (8.4-10.2); Carbon Dioxide 16 mmol/L (22-30); Chloride 104 mmol/L (98-107); Estimated Creatinine Clearance 40 ml/min; Glucose 254 mg/dl (70-99); HDL Cholesterol 34 mg/dl; LDL Cholesterol, Calculated 26 mg/dl; Potassium 4.4 mmol/L (3.5-5.1); Sodium 132 mmol/L (135-145); Total Bilirubin 0.4 mg/dl (0.2-1.3); Total Cholesterol 97 mg/dl (50-199); Triglyceride 185 mg/dl (10-149); Very Low Density Lipoprotein 37 mg/dl (0-30); eGFR 47.06
[2024-02-23 07:50] LABS: Glucose - Point of Care 248 mg/dl (70-99)
[2024-02-23] MEDS: NOVOLOG FLEXPEN-LOW RESISTANCE 2 UNITS SC ×2 (09:12→18:34)
[2024-02-23] MEDS: VITAMIN B-12 1000 MCG PO (09:13)
[2024-02-23] MEDS: ULTRAM 100 MG PO ×2 (09:14→20:32)
[2024-02-23] MEDS: ELIQUIS 5 MG PO ×2 (09:15→20:32)
[2024-02-23] MEDS: TOPROL XL 25 MG PO (09:15)
--- NOTE | 2024-02-23 09:36 | CON.CAR ---
Addendum entered and electronically signed by Rafy Morrow MD 02/23/24 13:49:
I saw and examined the patient.
The SONAR SUBSYSTEM EQUIPMENT OPERATOR's note was reviewed and I agree with the note.
Reviewed with pharmacy . Will restart amiodarone plan for 200mg daily. will use 200mg BID while hospitalized
Addendum entered and electronically signed by Rafy Morrow MD 02/23/24 12:00:
I saw and examined the patient.
The SONAR SUBSYSTEM EQUIPMENT OPERATOR's note was reviewed and I agree with the note.
78-year-old male with history of coronary artery disease/coronary artery bypass grafting 2019, occluded vein graft to ramus and vein graft to RCA by most recent catheterization, paroxysmal atrial fibrillation, cardiomyopathy with ejection fraction
of 35 to 40% hyper thyroidism (gridcap machine operator Dr. Li) history of CVA, CKD and recently lung cancer who presented with symptomatic A-fib. Patient has since spontaneously converted back to sinus rhythm after administration of IV Cardizem.
Patient had recurrent A-fib back in the fall. At that time he had been off amiodarone. During that hospitalization he was placed back on amiodarone. And it was thought that he was still on that medication when he followed up in our office back in
October. However in further discussion with his girlfriend who has coordinated his medications she had a 30-day supply of amiodarone at the time of discharge and did not ask for refills when it ran out. She also did not have methimazole on his
medication list. I communicated with his gridcap machine operator who thought the patient was back on methimazole 5 mg. Based on all the issues above I would suggest the following
-Continue medical therapy for coronary artery disease. Patient has known coronary artery disease and mild troponin rise is likely related to accelerated A-fib.
-Would continue measures to try and rate control A-fib since patient is symptomatic when he goes in A-fib. However treatment options are limited. Last visit was seen by EP and felt to be able to go back on amiodarone. I would recommend he goes
back on amiodarone with close following of his thyroid issues through his gridcap machine operator. However the difference between his hospitalization in the fall and current hospitalization is the fact that he is now on Lumakras. This does have some
interaction with amiodarone may potentially decrease levels. Also need to consider the fact that some of the potential side effects of amiodarone are similar to some of the possible side effects of Lumakras. Will review with primary team as well
as oncology.
-While issues above are being assessed would discontinue diltiazem
-Patient will need outpatient follow-up with endocrinology. Of note he has an appointment scheduled in March which is 1 hepatotoxicity and interstitial lung disease
Original Note:
Consultation
Consultation Request
Date/Time Consultation Requested: 02/22/241999
Date/Time Consultation Performed: 02/23/24944
Requesting Provider: Peggy Basurto NP
Performing Provider: Kriss KAHN for DrDave
Reason for Consultation: AFIB, abnormal troponin
Medical History
-
Chief Complaint: weakness, chest discomfort
History of Present Illness:
78 y/o male with CAD s/p CABG 2019, PAF on Eliquis, CM with EF 35-40%, lung CA, hyperthyroidism on amiodarone, hx CVA 2020 with reports of some residual hemorrhage at that time, CKD, and sleep apnea (did not tolerate CPAP) who is here for evaluation
of feeling weak after his shower yesterday around 9 AM. Prior to that he had been feeling fine. This was associated with tightness across his chest. It lasted for hours. He came to the ER, where he was seen to be in AFIB with RVR. He was placed on a
dilt drip and has been in SR since last evening around 8 PM. In this setting trops were up to 0.2. He is currently CP free. Of note, at last OV we have amiodarone listed as one of his medicines, but he tells me he has not been taking this- he is not
sure when or why it was stopped. He told me his girlfriend Mirna has a detailed list of medicines, and told me I could call her ([phone]), but her phone went to when I called.
Past Medical History
Past Medical History: Arrhythmias, CAD, Cancer, CHF and Hyperthyroidism
Social History
Tobacco: Non-Smoker
Alcohol: Occasional
Family History
Family History: CAD (dad)
Allergies / Home Medications
Allergy/AdvReac Type Severity Reaction Status Date / Time
tamsulosin [From Flomax] Allergy Unknown Verified 02/22/24 15:40
�Medication �Instructions �Recorded �Confirmed �Type
rosuvastatin 40 mg tablet (Crestor) 40 mg PO HS High cholesterol 05/21/21 02/22/24 History
apixaban 5 mg tablet (Eliquis) 5 mg PO BID #180 tabs 05/22/21 02/22/24 Rx
metoprolol succinate 25 mg 25 mg PO DAILY Blood pressure 06/13/22 02/22/24 History
tablet,extended release 24 hr
aspirin 81 mg tablet,delayed 81 mg PO HS Blood Clot 12/29/23 02/22/24 History
release Prevention/Tx
losartan 50 mg tablet 50 mg PO HS Blood Pressure 12/29/23 02/22/24 History
tramadol 50 mg tablet 100 mg (2 x 50 mg) PO BID #24 tabs 02/21/24 02/22/24 Rx
acetaminophen 325 mg tablet 975 mg PO BIDPRN PRN mild pain 02/22/24 02/22/24 History
(Tylenol)
cyanocobalamin (vitamin B-12) 1 tab PO DAILY Supplement 02/22/24 02/22/24 History
insulin NPH-regular 70-30 U-100 0 unit SC AC Diabetes 02/22/24 02/22/24 History
insulin 100 unit/mL subcutaneous
pen (Humulin 70/30 U-100 KwikPen)
ondansetron 4 mg disintegrating 4 mg PO Q8H PRN nausea/vomiting 02/22/24 02/22/24 History
tablet
sotorasib 320 mg tablet (Lumakras) 960 mg PO DAILY ANTINEOPLASTIC 02/22/24 02/22/24 History
Review of Systems
-
History Source: Patient
All other systems: Negative unless noted
Constitutional: Other (weakness)
Cardiac: Chest Pain
Physical Exam
Vital Signs
Temp Pulse Resp BP Pulse Ox
98.1 F 62 14 150/73 91
02/23/24 07:10 02/23/24 08:00 02/23/24 08:00 02/23/24 08:00 02/23/24 06:00
Lab Results
02/23/24 03:27
02/23/24 03:27
Troponin I 0.167 ng/ml H* 02/22/24 23:39
Physical Exam
General: Well Developed, Well Nourished and No Apparent Distress
HEENT: Normocephalic and Anicteric
Respiratory: Clear and Non Labored Respirations
Cardiac: Regular Rhythm
Breast: Deferred by me
Musculoskeletal: No Edema
Skin: Warm and Dry
Neuro: AO x 3
Psych: Calm
Impression / Plan
-
Chest discomfort/weakness:
-resolved
-likely related to AFIB with RVR, which has now resolved- plan as below
AFIB with RVR: paroxysmal
-now resolved back in SR
-remains on IV diltiazem- will plan to stop today, but will discuss med adjustments with Dr. Morrow
-as noted, was on amio in past, but issues with hyperthyroidism, then was on it again, but currently not on it and patient does not know when or why it was stopped. I called his gf with his permission since he said she would know, but no answer.
This information would be helpful.
-sounds like he has untreated sleep apnea (could not tolerate CPAP 5 years ago)- consider reassessment as OP
-continue Eliquis for OAC
-checking thyroid since issues in the past
Abnormal troponin:
-suspect type II MD in this patient with known significant CAD in setting of AFIB with RVR
-in for echo today
ICM EF 35-40%:
-appears euvolemic
-continue BB, on losartan
Lung CA
CKD
Data Reviewed
-
EKG: Tracing Personally Visualized and interpreted (SR 71 BPM, lateral T wave abnormalities)
Radiology: Report Reviewed by me (CXR: There is a 7 cm area of known malignancy in the posterior medial aspect of the right lower lobe.)
Medical Tests (Nuc Med, Echo etc): Report Reviewed by me (Cath 07/30/23: R dominant circulation with 70% distal left main, 90% mid LAD,WEB COMMUNICATIONS SPECIALIST of the proximal circ and WEB COMMUNICATIONS SPECIALIST of mid RCA, status post coronary artery bypass grafting (patent ZEPEDA to LAD,
patent SVG to OM, occluded SVG to ramus, occluded SVG to RCA). ) and Other (Echo 07/24/23: EF 35-40%. Basal to mid inferolateral and inferior wall hypokinesis. Stage I DD. Mild aortic regurgitation. Dilated aortic root. SOV is 4.0 cm.)
Labs: Labs Reviewed by me
[2024-02-23 09:52] LABS: Glycohemoglobin (HgbA1c) 9.3 % (4.0-5.6)
[2024-02-23 11:47] LABS: TSH Reflex To Free T4 5.34 uIU/ml (0.47-4.68)
[2024-02-23 12:17] LABS: Free T4 1.26 ng/dl (0.78-2.19)
[2024-02-23 12:27] LABS: Glucose - Point of Care 265 mg/dl (70-99)
[2024-02-23] MEDS: NOVOLOG FLEXPEN 3 UNITS SC ×2 (13:26→18:35)
[2024-02-23] MEDS: NOVOLOG FLEXPEN-LOW RESISTANCE 3 UNITS SC (13:27)
--- NOTE | 2024-02-23 16:37 | CM ---
Patient with Hx metastatic lung CA with Dx Chest discomfort/weakness, AFIB with RVR: paroxysmal, Abnormal troponin - suspect type II WA. Room air. Echo today. PT & OT recommend HH.
Attempted to meet with patient who was off having echo.
Met with FABRIZIO Bradley;
the patient resides with his SO in a 1 story modular home at [facility].
The patient has been independent in ADLs and ambulation.
DME - He recently ordered a scooter and Mirna says she does not know why, as he has no issues with his mobility.
No prior VN or SNF.
PCP - Rachelle Taylor
Pharmacy - [facility]
Plan offer VN.
Plan home.
[2024-02-23] MEDS: TAPAZOLE PO (16:56)
[2024-02-23 17:04] LABS: Glucose - Point of Care 225 mg/dl (70-99)
--- NOTE | 2024-02-23 17:29 | PTCARENOTE ---
Refused Tapazole this pm- lexicomp education provided and verbally explained but he is hesitant to start another drug with out further d/w provider. Relayed TT to Dr. Higuera.
Report given to Denise on 4th floor transferred with Tele to 417-2.
--- NOTE | 2024-02-23 17:35 | PTCARENOTE ---
Patient received to room 417-02 from IMU on stretcher. Patient ambulated into room with rolling walker and 1 assist. Patient assisted into bed and oriented to room. Call santos in reach. Patient verbalizes understanding to ring for needs.
--- NOTE | 2024-02-23 18:27 | W.PN.HOSP.TC ---
Today's Communication/Plan
-
Monitor overnight
Transition to telemetry
Methimazole started per endocrinology -patient declined
Assessment / Plan
Assessment / Plan
TTE
Normal LV size with mild to moderately reduced systolic function.
LVEF is 40% by visual estimation.
Mild concentric LVH.
Mild hypokinesis infero-septum, infero-lateral and basal inferior.
Stage I diastolic dysfunction suggestive of abnormal relaxation.
Normal right ventricular size and function.
Mild mitral regurgitation.
Mild aortic regurgitation.
Estimated pulmonary artery pressure of 23 mmHg assuming a right atrial pressure of 3 mmHg.
Compared to prior on July 24, 2023, overall LVEF appears slightly more
vigorous on [id number]-mg-ztyb comparison with an estimation of approximately 40% when compared to prior.

1. Paroxysmal A-fib with RVR
-Patient converted to normal sinus rhythm from IV Cardizem drip
-Patient resumed back on Toprol-XL 25 mg daily
-Cardiology evaluated and recommended patient to be started on amiodarone 200 mg twice daily and at discharge on 200 mg daily
-Echocardiogram showing slightly improved EF of 40%
-Case discussed with endocrinology who has requested patient to be resumed back on methimazole if started on amiodarone although patient have declined.
2. Non-MT troponin elevation
-No chest pain. No new ST segment changes on EKG
-Continue monitoring
History of CAD/CABG
Chronic systolic HF
History of hemorrhagic CVA
History of lung adenocarcinoma
Chronic right scapular pain
Dilated aortic root 4 cm
Essential hypertension
Hyperlipidemia
CKD IIIB
BPH
Type 2 diabetes with diabetic neuropathy
COPD
Former smoker
Sleep apnea noncompliant
Chronic anemia microcytic
OA
[place]
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
DVT prophylaxis - Eliquis
Full code
Anticipated Discharge: Within 24 hours
Subjective/Interval History
-
Date of Service: February 23, 2024
Patient in sinus rhythm
Denies chest pain/palpitation overnight
Objective Data
-
Vital Signs:
Vital Signs
Temp Pulse Resp BP Pulse Ox
98.4 F 62 16 150/81 94
02/23/24 17:40 02/23/24 17:40 02/23/24 17:40 02/23/24 17:40 02/23/24 17:40
I&O
02/22/24 02/23/24 02/24/24
06:59 06:59 06:59
Intake Total 240 / 240 980 / 980
Output Total 400 / 400
Balance 240 / 240 580 / 580
Review of Systems
-
Respiratory: Reports No Symptoms
Cardiac: Reports No Symptoms
Abdomen/GI: Reports No Symptoms
Physical Exam
-
General: No Apparent Distress
HEENT: Moist Mucous Membranes
Respiratory: Clear to Auscultation
Cardiac: Regular Rhythm and S1/S2; Negative Murmur
GI: Soft, Nontender and Nondistended
Neuro: AO x 3
Psych: Calm
[2024-02-23] MEDS: PACERONE 200 MG PO (20:32)
[2024-02-23] MEDS: ASPIR LOW (ENTERIC COATED) 81 MG PO (20:32)
[2024-02-23] MEDS: CRESTOR 40 MG PO (20:32)
[2024-02-23 22:04] LABS: Glucose - Point of Care 166 mg/dl (70-99)
[2024-02-24 03:14] VITALS: BP 132/66
[2024-02-24 05:20] VITALS: BMI 28.1
[2024-02-24 07:19] LABS: Glucose - Point of Care 122 mg/dl (70-99)
[2024-02-24 07:45] VITALS: BP 148/79
[2024-02-24 08:23] LABS: % Basophils 0.4 % (0-2); % Eosinophils 0.9 % (0-6); % Immature Granulocytes 0.3 % (0-0.5); % Lymphocytes 30.7 % (20.5-51.1); % Monocytes 11.1 % (1.7-9.3); % Neutrophils 56.6 % (42.2-75.2); Absolute Eosinophils 0.1 10^3/uL (0-0.7); Absolute Lymphocytes 3.1 10^3/uL (1.2-3.4); Absolute Monocytes 1.1 10^3/uL (0.1-0.6); Absolute Neutrophils 5.7 10^3/uL (1.4-6.5); Hematocrit 36.4 % (39.0-52.0); Hemoglobin 11.1 g/dL (13.0-18.0); Mean Corp Hgb Conc. 30.5 g/dL (33.0-37.0); Mean Corpuscular Hgb 25.3 pg (27.0-31.0); Mean Corpuscular Volume 83.1 fL (80.0-94.0); Mean Platelet Volume 9.7 fL (7.4-10.4); Nucleated Red Blood Cells % 0 % (-); Platelet Count 290 10^3/uL (130-400); Red Blood Cell Count 4.38 10^6/uL (4.70-6.10); Red Cell Dist. Width 17.6 % (11.5-14.5); White Blood Cell Count 10.1 10^3/uL (4.8-10.8)
[2024-02-24] MEDS: NOVOLOG FLEXPEN 3 UNITS SC ×2 (08:37→11:35)
[2024-02-24] MEDS: NOVOLOG FLEXPEN-LOW RESISTANCE SC (08:38)
[2024-02-24] MEDS: TOPROL XL 25 MG PO (08:40)
[2024-02-24] MEDS: TAPAZOLE 5 MG PO (08:40)
[2024-02-24] MEDS: VITAMIN B-12 1000 MCG PO (08:40)
[2024-02-24] MEDS: ELIQUIS 5 MG PO (08:40)
[2024-02-24] MEDS: ULTRAM 100 MG PO (08:41)
[2024-02-24] MEDS: PACERONE 200 MG PO (08:41)
--- NOTE | 2024-02-24 08:47 | PN.CDI ---
CDI
- -
CDI:
Physician Documentation Request
Admit Date: 02/22/24 20:31
Dear Doctor Kalen,
Please review the following and provide your response in the progress notes.
Due to conflicting documentation, please clarify the following documentation...
Clinical Indicators:
PN, 02/21
#Suspect Angina in setting of fast AF
#POS TPNI - NSTEMI vs NIMI
PN, 02/22
#2. Non-CT troponin elevation
#-No chest pain. No new ST segment changes on EKG
Cardiology consult, 02/22
#Abnormal troponin:
#...-suspect type II CT in this patient with known significant
#...CAD in setting of AFIB with RVR
Laboratory Tests
02/22/24 02/22/24 02/22/24
15:58 18:57 23:39
Troponin I 0.120 H* 0.204 H* D 0.167 H*
Please clarify the following regarding the documented abnormal troponin....
Non ischemic myocardial injury
Type II myocardial infarction
Other (please specify)
Extent of CT
STEMI - indicate the location and vessel involved
NSTEMI - subendocardial, nontransmural
Type of CT
Type I
Type II (due to demand ischemia)
Other (Type 3, 4a, 4b, 4c, 5) please specify
Use of terms such as suspected, likely, concern for, or probable (associated with a specific diagnosis that is being evaluated, monitored, or treated as if it exists) are acceptable and can be coded in the inpatient setting, when documented at the
time of discharge.
Thank you,
Sera Galvan RN BSN CCDS
CDI Specialist
please contact via tiger text
Please use your independent medical judgment in providing your response.
[2024-02-24 09:04] LABS: ALT (SGPT) 31 U/L (0-50); AST (SGOT) 42 U/L (17-59); Albumin 3.9 g/dl (3.5-5.0); Alkaline Phosphatase 117 U/L (38-126); Blood Urea Nitrogen 35 mg/dl (9-20); Calcium 9.4 mg/dl (8.4-10.2); Carbon Dioxide 20 mmol/L (22-30); Chloride 101 mmol/L (98-107); Estimated Creatinine Clearance 35 ml/min; Glucose 119 mg/dl (70-99); Potassium 5.4 mmol/L (3.5-5.1); Sodium 133 mmol/L (135-145); Total Bilirubin 0.5 mg/dl (0.2-1.3); Total Protein 6.7 g/dl (6.3-8.2)
--- NOTE | 2024-02-24 11:25 | CM ---
Patient seen bedside. CM offered VN to patient, patient declining at this time. IMM reviewed with patient, signed, placed in chart. Patient reports his will provide transportation home. CM will continue to follow for discharge planning needs.
Plan; home with , declining VN.
[2024-02-24] MEDS: LOKELMA 10 GRAM PO (11:27)
[2024-02-24] MEDS: NOVOLOG FLEXPEN-LOW RESISTANCE 2 UNITS SC (11:34)
[2024-02-24 11:35] LABS: Glucose - Point of Care 206 mg/dl (70-99)
[2024-02-24 12:09] VITALS: BP 108/63
--- NOTE | 2024-02-24 14:37 | W.PN.HOSP.TC ---
Addendum entered and electronically signed by Bhavik Higuera MD 02/25/24 14:13:
Addendum placed in response to CDI query
Adjust diagnosis
Non ischemic myocardial injury
Addendum entered and electronically signed by Bhavik Higuera MD 02/24/24 14:41:
Hyperkalemia
-Minimal 5.5
-Not on SHERIN/ARB therapy. Not on potassium supplement
-1 dose of Lokelma provided
-Repeat BMP with PCP office.
Original Note:
Today's Communication/Plan
-
d/c home
Assessment / Plan
Assessment / Plan
TTE
Normal LV size with mild to moderately reduced systolic function.
LVEF is 40% by visual estimation.
Mild concentric LVH.
Mild hypokinesis infero-septum, infero-lateral and basal inferior.
Stage I diastolic dysfunction suggestive of abnormal relaxation.
Normal right ventricular size and function.
Mild mitral regurgitation.
Mild aortic regurgitation.
Estimated pulmonary artery pressure of 23 mmHg assuming a right atrial pressure of 3 mmHg.
Compared to prior on July 24, 2023, overall LVEF appears slightly more
vigorous on [id number]-[id number]-cllm comparison with an estimation of approximately 40% when compared to prior.

1. Paroxysmal A-fib with RVR
-Patient converted to normal sinus rhythm from IV Cardizem drip
-Patient resumed back on Toprol-XL 25 mg daily
-Cardiology evaluated and recommended patient to be started on amiodarone 200 mg twice daily and at discharge on 200 mg daily
-Echocardiogram showing slightly improved EF of 40%
2. Non-VA troponin elevation
-No chest pain. No new ST segment changes on EKG
-Continue monitoring
3. Hyperthyroidism
-Patient with history of hyperthyroidism and was supposed to be on methimazole therapy
-Discussed with primary womens health nurse practitioner Dr. Li recommended patient to be started back on methimazole 5 mg daily as long as patient is on amiodarone therapy.
-Patient declined yesterday although after rediscussion agreeable to start taking it. script sent
-Patient will have follow-up with Dr. Li on first March.
History of CAD/CABG
Chronic systolic HF
History of hemorrhagic CVA
History of lung adenocarcinoma
Chronic right scapular pain
Dilated aortic root 4 cm
Essential hypertension
Hyperlipidemia
CKD IIIB
BPH
Type 2 diabetes with diabetic neuropathy
COPD
Former smoker
Sleep apnea noncompliant
Chronic anemia microcytic
OA
[place]
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
DVT prophylaxis - Eliquis
Full code
More than 30 minutes spent in discharge including
Final examination of the patient
Summarizing hospital stay
Instructions for continuing care to all relevant caregivers
Preparation of discharge records, prescriptions, and referral forms
Total time spent (in minutes): 38 mins
Anticipated Discharge: Today
Subjective/Interval History
-
Date of Service: February 24, 2024
no issues in night
Objective Data
-
Labs:
Laboratory Results
02/24/24
06:58
WBC 10.1
Hgb 11.1 L
Hct 36.4 L
Plt Count 290
Sodium 133 L
Potassium 5.4 H
Chloride 101
Carbon Dioxide 20 L
BUN 35 H
Creatinine 1.7 H
Glucose 119 H
Calcium 9.4
Total Bilirubin 0.5
AST 42
ALT 31
Alkaline Phosphatase 117
Vital Signs:
Vital Signs
Temp Pulse Resp BP Pulse Ox
97.5 F 64 16 108/63 95
02/24/24 12:09 02/24/24 12:09 02/24/24 12:09 02/24/24 12:09 02/24/24 12:09
I&O
02/23/24 02/24/24 02/25/24
06:59 06:59 06:59
Intake Total 240 / 240 1100 / 1100
Output Total 600 / 600
Balance 240 / 240 500 / 500
Review of Systems
-
Respiratory: Reports No Symptoms
Cardiac: Reports No Symptoms
Abdomen/GI: Reports No Symptoms
Physical Exam
-
General: No Apparent Distress
HEENT: Moist Mucous Membranes
Respiratory: Clear to Auscultation
Cardiac: Regular Rhythm and S1/S2; Negative Murmur
GI: Soft, Nontender and Nondistended
Neuro: AO x 3
Psych: Calm
--- NOTE | 2024-02-25 07:36 | W.DCSUMMARY ---
Discharge Summary
Discharge Data
Date of Admission: 02/22/24
Date of Discharge: 02/24/24
-
Pending Results: No
Hospital Course
Discharging Physician : Dr Bhavik Higuera
Disposition : Home
Primary care physician : Unknown
Principal Discharge diagnosis :
Paroxysmal atrial fibrillation with rapid ventricular rate
Non myocardial infarction troponin elevation
History of hyperthyroidism
Chronic Discharge diagnosis :
History of coronary disease/bypass
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
History of hemorrhagic stroke
History of lung adenocarcinoma
Dilated aortic root of 4 cm
Essential hypertension
Hyperlipidemia
Chronic kidney disease stage IIIb
Benign prostatic hyperplasia
Chronic obstructive pulmonary disease
Former smoker
Sleep apnea noncompliant with positive pressure therapy
Osteoarthritis
Hospital Course :
Patient is a 78-year-old male with above-mentioned past medical history came to ER for having new onset of dizziness and some chest tightness. In ER patient was noted to be in A-fib RVR. Patient does have history of A-fib although post admission
was found that patient was not taking amiodarone after running out of prescription. In ER patient required to be started on Cardizem drip and cardiology was involved in care. Patient had a follow-up echocardiogram which showed slightly improved EF
to 40%. Patient had minimal known myocardial infarction troponin elevation. No further workup required regarding this. Patient does have history of hypothyroidism due to amiodarone and was supposed to be on methimazole, although patient was not
taking it either. Patient was resumed back on amiodarone and and per endocrinology recommendation patient also started back on methimazole. Patient will follow-up with cardiology and endocrinology in office postdischarge.
Important imaging findings :
None
Procedure findings :
None
Discharge Plan
-
Patient Disposition: Home (Routine Discharge)
Discharge Diagnosis/Procedures: Afib RVR
Condition: Fair
Diet: Regular
Activity: As tolerated
Driving Restrictions: As prior to admission
Bathing Restrictions: OK to Shower
Blood Work: BMP in 1 week
Referrals:
Lillian Li MD [Consulting Staff] - 03/10/24
UNKNOWN - PT DOES,NOT KNOW [Family Provider] -
Prescriptions:
New
methimazole 5 mg tablet
5 mg PO DAILY Qty: 30 2RF
amiodarone 200 mg tablet
200 mg PO DAILY Qty: 30 2RF
Continued
rosuvastatin [Crestor] 40 MG tablet
40 mg PO HS
Eliquis 5 MG tablet
5 mg PO BID Qty: 180 0RF
Hold Instructions: Resume on 05/31/23.
metoprolol succinate 25 mg Tablet Extended Release 24 Hr
25 mg PO DAILY
losartan 50 mg Tablet
50 mg PO HS
aspirin 81 mg Tablet,Delayed Release (Dr/Ec)
81 mg PO HS
tramadol 50 mg tablet
100 mg PO BID Qty: 24 0RF
acetaminophen [Tylenol] 325 mg Tablet
975 mg PO BIDPRN PRN (Reason: mild pain)
ondansetron 4 mg Tablet,Disintegrating
4 mg PO Q8H PRN (Reason: nausea/vomiting)
Humulin 70/30 U-100 KwikPen 100 unit/mL (70-30) insulin pen
0 unit SC AC
Patient Comments:
02/22/2024, pt. uses this med. on a sliding scale but does not know what that sliding scale is; per pt., when he injects 10 units, his BS decreases by 100.
Lumakras 320 mg Tablet
960 mg PO DAILY
cyanocobalamin (vitamin B-12)
1 tab PO DAILY
Discharge Orders:
Discharge Patient (As Directed); Ordered 02/24/24
Ordered By: Bhavik Higuera
Discharge Date and Time
Discharge Date/Time: 02/24/24 12:24
Print Language: FRENCH
== END 2024-02-24 12:24 | disposition home or self-care (01) | DRG 309 ==
LOC: 4 WEST ACU 20:31
PROVIDERS: Clinical Nurse Specialist Family Health; Emergency Medicine; ADMITTING PHYSICIAN Internal Medicine; ATTENDING PHYSICIAN Hospitalist; EMERGENCY PHYSICIAN Emergency Medicine; OTHER PHYSICIAN Internal Medicine Cardiovascular Disease
DX: I48.0 Paroxysmal atrial fibrillation (principal); C34.90 Malignant neoplasm of unspecified part of unspecified bronchus or lung; E87.20 Acidosis, unspecified; I13.0 Hypertensive heart and chronic kidney disease with heart failure and stage 1 through stage 4 chronic kidney disease, or unspecified chronic kidney disease; I5A Non-ischemic myocardial injury (non-traumatic); I50.22 Chronic systolic (congestive) heart failure; Z66 Do not resuscitate; Z87.891 Personal history of nicotine dependence; Z79.01 Long term (current) use of anticoagulants; Z79.82 Long term (current) use of aspirin; E78.00 Pure hypercholesterolemia, unspecified; E11.22 Type 2 diabetes mellitus with diabetic chronic kidney disease; N18.32 Chronic kidney disease, stage 3b; E11.42 Type 2 diabetes mellitus with diabetic polyneuropathy; G47.33 Obstructive sleep apnea (adult) (pediatric); E87.5 Hyperkalemia; E05.90 Thyrotoxicosis, unspecified without thyrotoxic crisis or storm; E03.2 Hypothyroidism due to medicaments and other exogenous substances; T46.2X5A Adverse effect of other antidysrhythmic drugs, initial encounter
CPT/HCPCS: 71046; 80053; 80061; 82962; 83036; 84439; 84443; 84484; 85025; 85027; 93005; 93306; 96374; 97162; 97166; 99285

== ENCOUNTER 2024-04-01 15:56 | Outpatient (RCR) | payer MEDICARE, OTHER, SELFPAY ==
[2024-04-01 12:29] LABS: % Basophils 0.2 % (0-2); % Eosinophils 1.5 % (0-6); % Immature Granulocytes 0.1 % (0-0.5); % Lymphocytes 15.6 % (20.5-51.1); % Monocytes 8.9 % (1.7-9.3); % Neutrophils 73.7 % (42.2-75.2); Absolute Eosinophils 0.1 10^3/uL (0-0.7); Absolute Lymphocytes 1.3 10^3/uL (1.2-3.4); Absolute Monocytes 0.8 10^3/uL (0.1-0.6); Absolute Neutrophils 6.2 10^3/uL (1.4-6.5); Hematocrit 32.1 % (39.0-52.0); Mean Corp Hgb Conc. 31.2 g/dL (33.0-37.0); Mean Corpuscular Volume 86.5 fL (80.0-94.0); Mean Platelet Volume 9.9 fL (7.4-10.4); Platelet Count 289 10^3/uL (130-400); Red Blood Cell Count 3.71 10^6/uL (4.70-6.10); Red Cell Dist. Width 16.5 % (11.5-14.5); White Blood Cell Count 8.4 10^3/uL (4.8-10.8)
[2024-04-01 14:00] LABS: ALT (SGPT) 12 U/L (0-50); AST (SGOT) 21 U/L (17-59); Albumin 3.8 g/dl (3.5-5.0); Alkaline Phosphatase 89 U/L (38-126); Blood Urea Nitrogen 18 mg/dl (9-20); Calcium 9.2 mg/dl (8.4-10.2); Carbon Dioxide 19 mmol/L (22-30); Chloride 109 mmol/L (98-107); Glucose 108 mg/dl (70-99); Potassium 3.9 mmol/L (3.5-5.1); Sodium 138 mmol/L (135-145); Total Bilirubin 0.4 mg/dl (0.2-1.3); Total Protein 6.2 g/dl (6.3-8.2); eGFR 47.06
[2024-04-01 14:29] LABS: TSH 6.95 uIU/ml (0.47-4.68)
== END 2024-04-09 23:59 | disposition home or self-care (01) ==
LOC: OID 15:56
PROVIDERS: ATTENDING PHYSICIAN Internal Medicine Hematology & Oncology
DX: C34.31 Malignant neoplasm of lower lobe, right bronchus or lung (principal)
CPT/HCPCS: 80053; 84443; 85025

== ENCOUNTER → 2024-06-30 12:19 | Outpatient (REF) | payer MEDICARE, OTHER, SELFPAY ==
[2024-06-30 12:40] VITALS: BP 178/97; BP_SYST 63
== END ==
LOC: RADI 12:19
PROVIDERS: ATTENDING PHYSICIAN Internal Medicine Hematology & Oncology; FAMILY PHYSICIAN Nurse Practitioner Acute Care
DX: Z45.2 Encounter for adjustment and management of vascular access device (principal); Z85.118 Personal history of other malignant neoplasm of bronchus and lung
CPT/HCPCS: 36590; 77001

== ENCOUNTER 2024-08-13 12:43 | Inpatient (IN) | payer MEDICARE, OTHER, SELFPAY ==
[2024-08-13] VITALS (34 sets, daily range): BP systolic 97–199; BP diastolic 54–108; BMI 27.4; BMI 27.5
[2024-08-13 10:04] LABS: % Basophils 0.3 % (0-2); % Immature Granulocytes 0.3 % (0-0.5); % Lymphocytes 20.1 % (20.5-51.1); % Monocytes 12.2 % (1.7-9.3); % Neutrophils 66.1 % (42.2-75.2); Absolute Eosinophils 0.1 10^3/uL (0-0.7); Absolute Lymphocytes 1.4 10^3/uL (1.2-3.4); Absolute Monocytes 0.8 10^3/uL (0.1-0.6); Absolute Neutrophils 4.4 10^3/uL (1.4-6.5); Hematocrit 30.6 % (39.0-52.0); Hemoglobin 9.6 g/dL (13.0-18.0); Mean Corp Hgb Conc. 31.4 g/dL (33.0-37.0); Mean Corpuscular Hgb 28.2 pg (27.0-31.0); Mean Corpuscular Volume 89.7 fL (80.0-94.0); Mean Platelet Volume 10.3 fL (7.4-10.4); Nucleated Red Blood Cells % 0 % (-); Platelet Count 303 10^3/uL (130-400); Red Blood Cell Count 3.41 10^6/uL (4.70-6.10); Red Cell Dist. Width 15.1 % (11.5-14.5); White Blood Cell Count 6.7 10^3/uL (4.8-10.8)
[2024-08-13 10:18] LABS: ALT (SGPT) 13 U/L (0-50); AST (SGOT) 18 U/L (17-59); Albumin 3.9 g/dl (3.5-5.0); Alkaline Phosphatase 80 U/L (38-126); Blood Urea Nitrogen 19 mg/dl (9-20); Carbon Dioxide 19 mmol/L (22-30); Chloride 109 mmol/L (98-107); Estimated Creatinine Clearance 39 ml/min; Glucose 146 mg/dl (70-99); Potassium 4.2 mmol/L (3.5-5.1); Sodium 141 mmol/L (135-145); Total Bilirubin 0.3 mg/dl (0.2-1.3); Total Protein 6.2 g/dl (6.3-8.2); eGFR 46.77
[2024-08-13] MEDS: LASIX 40 MG IV ×2 (11:33→15:52)
[2024-08-13] MEDS: NITRO-BID 1 INCH TOPICAL (11:35)
[2024-08-13 11:36] LABS: NT-proBNP 2550 pg/ml
--- NOTE | 2024-08-13 12:06 | HPS.HSE ---
Family Physician
-
Family Physician: Rachelle Taylor MD
Chief Complaint
-
sob
cough
History of Present Illness
79-year-old with past medical history for hyperlipidemia, BPH, stage III kidney disease, hypertension, adenocarcinoma of right lung, hypothyroidism, type 2 diabetes, paroxysmal A-fib presented to us with nonproductive cough all night. Patient
stated orthopnea. Short of breath with exertion. patient had a meals with added salt for dinner last night. Patient denied any chest pain. Patient denied any fever, chill. Stated chronic runny nose patient denied any headache, dizziness,
syncopal episode. Patient denied any abdominal pain, nausea, vomiting, diarrhea. Patient denied. dysuria or hematuria.
Elevated BNP, chest x-ray with CHF. Patient was noted to have elevated blood pressure. Patient on nitro drip. Patient also received furosemide in ER admitting for further management.
Medical History
Past Medical History
Past Medical History: Reports Other
Additional Past Medical History:
HLD
BPH
stage 3 kidney disease
htn
righ lung adenocarcinoma
hyperthyroidism
type 2 DM
MYKE
atrial fib
BPH
Past Surgical History: Reports Other
Additional Past Surgical History:
cholecystectomy
appendectomy
CABG x4
vasectomy
Social History
Tobacco: Former Smoker
Alcohol: Occasional
Drug: None
Personal:
Living: With Family
Family History
Family History: Not pertinent
Allergies / Home Medications
Allergies reflects when Allergies were last updated in [facility].
Home Medications with original date entered in [facility]
Allergy/Medication List:
Allergies
Allergy/AdvReac Type Severity Reaction Status Date / Time
tamsulosin [From Flomax] Allergy Unknown Verified 08/13/24 09:58
Home Medications
rosuvastatin 40 mg tablet (Crestor) 40 mg PO HS High cholesterol 05/21/21
apixaban 5 mg tablet (Eliquis) 5 mg PO BID #180 tabs 05/22/21
metoprolol succinate 25 mg tablet,extended release 24 hr 25 mg PO DAILY Blood pressure 06/13/22
losartan 50 mg tablet 50 mg PO HS Blood Pressure 12/29/23
acetaminophen 325 mg tablet (Tylenol) 975 mg PO BIDPRN PRN mild pain 02/22/24
cyanocobalamin (vitamin B-12) 1 tab PO DAILY Supplement 02/22/24
insulin NPH-regular 70-30 U-100 insulin 100 unit/mL subcutaneous pen (Humulin 70/30 U-100 KwikPen) 0 unit SC AC Diabetes 02/22/24
ondansetron 4 mg disintegrating tablet 4 mg PO Q8H PRN nausea/vomiting 02/22/24
sotorasib 320 mg tablet (Lumakras) 960 mg PO HS ANTINEOPLASTIC 02/22/24
amiodarone 200 mg tablet 200 mg PO DAILY #30 tabs 02/24/24
methimazole 5 mg tablet 5 mg PO QMWF 08/13/24
omeprazole 20 mg tablet,delayed release 20 mg PO DAILY PRN heart burn 08/13/24
Review of Systems
-
Constitutional: Reports No Symptoms
EENT: Reports No Symptoms
Respiratory: Reports Cough and Trouble Breathing
Cardiac: Reports No Symptoms
Abdomen/GI: Reports No Symptoms
: Reports No Symptoms
Musculoskeletal: Reports No Symptoms
Skin: Reports No Symptoms
Neurological: Reports No Symptoms
Endocrine: Reports No Symptoms
Hematologic/Lymphatic: Reports No Symptoms
Psych: Reports No Symptoms
Physical Exam
Vital Signs
Vital Signs
Temp Pulse Resp BP Pulse Ox
98 F 58 17 179/93 96
08/13/24 09:39 08/13/24 12:00 08/13/24 12:00 08/13/24 12:00 08/13/24 09:39
Physical Exam
General: Well Developed, Well Nourished and No Apparent Distress
HEENT: NormoCephalic, Moist mucous membranes and Atraumatic
Respiratory: Rales
Cardiac: S1/S2 and Regular Rhythm; No Murmur or Rub
GI: Soft, Non Tender, Non Distended and Normal Bowel Sounds; No Organomegaly
Rectal: Deferred by Provider
Musculoskeletal: No Clubbing, No Cyanosis and No Edema
Skin: No Rash
Neuro: AO x 3 and Nonfocal/grossly intact
Psych: Calm
Laboratory Results
-
08/13/24 09:51
08/13/24 09:51
Laboratory Results
Total Bilirubin 0.3 mg/dl (0.2-1.3) 08/13/24 09:51
AST 18 U/L (17-59) 08/13/24 09:51
ALT 13 U/L (0-50) 08/13/24 09:51
Alkaline Phosphatase 80 U/L (38-126) 08/13/24 09:51
Data Reviewed
-
Diagnostic Radiology: Report Reviewed by me
Lab Data: Labs Reviewed by me
Impression/Plan
-
# Acute on chronic systolic heart failure likely secondary to hypertension
-iv Lasix continued
-fluid restriction
-stirct I &O
-cardiology consult
-CXR with CHF
-BNP 2250
#HTn emergency
-sl nitro with improvement in HTn
-on nitro infusion
-Losartan continued with hold parameters
#anemia of chornic disease
-hgb 9.6
-no active bleeding
-ctm
#CKD stage 3b
-cr 1.5
-ctm
# Paroxysmal A-fib with RVR
-EKG with normal sinus rhythm
-Metoprolol continue with hold parameters
-Eliquis and amiodarone continued
#Hyperthyroidism
-Methimazole continued
#History of CAD/CABG
#History of hemorrhagic CVA
#History of lung adenocarcinoma
-On Lumakras
-Follows Dr. Keane as outpatient
#Hyperlipidemia
-statin
BPH
#Type 2 diabetes with diabetic neuropathy
-Sliding scale
-Carb controlled diet
#Sleep apnea noncompliant
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
DVT prophylaxis - Eliquis
DNR
[2024-08-13] MEDS: NITROGLYCERIN PREMIX 250 IV (12:19)
--- NOTE | 2024-08-13 12:42 | W.PN.UPDATE ---
Update Note
Progress Note Update
This is an addendum to the H&P written by Jennifer Solis on 08/2024.� Patient seen and examined independently with MICROBIOLOGY LAB ASSISTANT.
79-year-old male past medical history of paroxysmal atrial fibrillation on Eliquis, CAD status post CABG, prior hemorrhagic CVA, adenocarcinoma of lung, essential hypertension, hyperlipidemia, CKD 3B, BPH, COPD, former smoker, obstructive sleep
apnea, osteoarthritis, presenting with shortness of breath and cough starting yesterday after adding salt to soup recently.
Patient with peak blood pressure of 220 systolic.� Labs show CKD at baseline, cardiac BNP of 2550.� Chest x-ray shows mild increase in pulmonary vascularity.� EKG shows normal sinus rhythm
Hypertensive emergency and acute on chronic HFrEF exacerbation.� 40 IV Lasix daily.� Nitroglycerin drip started.� Cardiology consulted.
--- NOTE | 2024-08-13 13:58 | CON.CAR ---
Addendum entered and electronically signed by Marlo Robb MD 08/13/24 17:29:
79 yo male with CAD, prior CABG 2020, paroxysmal A fib on eliquis, ICM EF 40%, chronic systolic HF, mild AR, lung cancer on KRASi admitted with cough, HTN urgency. Feels better after IV lasix. Exam with RRR, no murmurs, trace LE edema. Tele: SR
60s. EKG: NSR, nonspecific ST abnl.
Likely component of acute systolic HF. Continue lasix 40mg IV bid with close monitoring of labs and tele. Not on lasix as outpatient: likely lasix 40mg daily when ready for d/c.
Wean nitro drip.
Original Note:
Consultation
Consultation Request
Date/Time Consultation Requested: 08/13/24 1206
Date/Time Consultation Performed: 08/13/24 1358
Requesting Provider: Jennifer Solis NP
Performing Provider: Kirss KAHN for Dr. Robb
Reason for Consultation: CHF
Medical History
-
Chief Complaint: cough
History of Present Illness:
79 y/o male with CAD with CABG 2020, PAF on amiodarone and Eliquis, ICM with EF 35-40%, lung cancer on Lumakras, hyperthyroidism on methimazole, CVA, hypertension, anemia, sleep apnea, DM2 on insulin, and CKD3b (though currently GFR in 3a range) who
is here for evaluation of incessant cough since last night. He could not sleep. It was not productive. He has no fever or chills. He denies any CP. He had soup with salt in it last night. He is up 3 lbs this week, but attributed that to his appetite
coming back (after starting his Lumakras had poor appetite initially). He denies any SOB or edema. His significant other noted wheezing. Cough improved s/p IV lasix. He is in no distress at the time of my assessment. Otherwise, BP in EMS and on
arrival was severely elevated and he was placed on a nitro drip. BP now improved.
Past Medical History
Past Medical History: Arrhythmias, CAD, CVA, HTN, Hyperthyroidism, NIDDM (on insulin), Renal Failure (CKD) and Other (ICM)
Social History
Tobacco: Non-Smoker
Alcohol: Occasional
Family History
Family History: CAD (dad)
Allergies / Home Medications
Allergy/AdvReac Type Severity Reaction Status Date / Time
tamsulosin [From Flomax] Allergy Unknown Verified 08/13/24 09:58
�Medication �Instructions �Recorded �Confirmed �Type
rosuvastatin 40 mg tablet (Crestor) 40 mg PO HS High cholesterol 05/21/21 08/13/24 History
apixaban 5 mg tablet (Eliquis) 5 mg PO BID #180 tabs 05/22/21 08/13/24 Rx
metoprolol succinate 25 mg 25 mg PO DAILY Blood pressure 06/13/22 08/13/24 History
tablet,extended release 24 hr
losartan 50 mg tablet 50 mg PO HS Blood Pressure 12/29/23 08/13/24 History
acetaminophen 325 mg tablet 975 mg PO BIDPRN PRN mild pain 02/22/24 08/13/24 History
(Tylenol)
cyanocobalamin (vitamin B-12) 1 tab PO DAILY Supplement 02/22/24 08/13/24 History
insulin NPH-regular 70-30 U-100 0 unit SC AC Diabetes 02/22/24 08/13/24 History
insulin 100 unit/mL subcutaneous
pen (Humulin 70/30 U-100 KwikPen)
ondansetron 4 mg disintegrating 4 mg PO Q8H PRN nausea/vomiting 02/22/24 08/13/24 History
tablet
sotorasib 320 mg tablet (Lumakras) 960 mg PO HS ANTINEOPLASTIC 02/22/24 08/13/24 History
amiodarone 200 mg tablet 200 mg PO DAILY #30 tabs 02/24/24 08/13/24 Rx
methimazole 5 mg tablet 5 mg PO QMWF 08/13/24 08/13/24 History
omeprazole 20 mg tablet,delayed 20 mg PO DAILY PRN heart burn 08/13/24 08/13/24 History
release
Review of Systems
-
History Source: Patient
All other systems: Negative unless noted
Respiratory: Cough and Other (wheezing)
Physical Exam
Vital Signs
Temp Pulse Resp BP Pulse Ox
98 F 62 11 150/75 96
08/13/24 09:39 08/13/24 13:30 08/13/24 13:30 08/13/24 13:30 08/13/24 09:39
Lab Results
08/13/24 09:51
08/13/24 09:51
Mcm-Q-Amswwldxkka Pept 2550 pg/ml 08/13/24 11:06
Physical Exam
General: Well Developed and Well Nourished
HEENT: Normocephalic and Anicteric
Respiratory: Wheezes (right base with coarse lung sounds and mild wheezing)
Cardiac: Regular Rhythm
Skin: Warm and Dry
Neuro: AO x 3
Psych: Calm
Impression / Plan
-
Acute HFrEF: mildly volume overloaded
-BNP elevated, 3 lb weight gain as OP, CXR suggestive CHF, high sodium meal last night
-agree with IV lasix, which requires intensive monitoring- however, I don't think he will need much. He is not on diuretic as OP, but will need diuretic at d/c.
-he thinks his normal weight is 183 and he is about 185 lbs.
-CHF education
ICM:
-most recent EF 40%
-updating echo now
-patient is on BB and ARB
-based on findings, may adjust losartan to Entresto and add SGLT2 inhibitor. Will place CM consult for pricing.
HTN:
-severe
-now improved on IV nitro- would wean off as tolerated
-monitor with medicine adjustments
CAD s/p CABG:
-stable without CP
PAF:
-stable in SR
-on amiodarone
-continue Eliquis for OAC
Data Reviewed
-
EKG: Tracing Personally Visualized and interpreted (NSR, non specific t abnormality)
Radiology: Report Reviewed by me (Findings suggest congestive heart failure)
Medical Tests (Nuc Med, Echo etc): Report Reviewed by me (echo 02/23/24: Normal LV size with mild to moderately reduced systolic function. LVEF is 40%. Mild concentric LVH. Mild hypokinesis infero-septum, infero-lateral and basal inferior. Stage I
DD. Mild MR and AR, PAP 23 mmhg. )
Labs: Labs Reviewed by me
--- NOTE | 2024-08-13 15:35 | ED.GENMED ---
History of Present Illness
General
Chief Complaint: Breathing Problem
Source: patient
Exam Limitations: none
Time Seen by Provider: 08/13/24 10:38
Nursing documentation reviewed up to this point in time: agreed with
History of Present Illness
History of Present Illness:
79-year-old male with past medical history of COPD, hypertension, hyperlipidemia, CAD status post CABG, diabetes chronic kidney disease who presents to the emergency department from home via EMS for evaluation of cough and breathing difficulties.
Patient reports that his symptoms started last night while he was laying flat in bed�he says he was up all night coughing and he felt like he had chest congestion. He says that earlier this morning when he was sitting up in the chair he was having
some shortness of breath and some audible wheezing. He says his called EMS to bring on the hospital. He says he does not have any chest pain. EMS found him hypertensive with a blood pressure of 220 systolic. He was given a sublingual
nitroglycerin and he says his symptoms improved a bit although did not resolve. Brought to the emergency room for assessment. He denies any recent fevers or chills. He has not noticed any swelling in the legs. Denies any recent URI symptoms or
GI symptoms. He was notably hypertensive�he reports he has been compliant with his home blood pressure medications (losartan and metoprolol); he does admit to rather salty meal last night with a large bowl of soup to which he added a lot of extra
salt.
Past History
Past History
ED Past Medical History: Arrthythmia (Atrial fib), CAD, COPD, CVA (Left side weakness), GERD, HTN, Hypercholesterolemia, NIDDM, ID and Other (CPAP for sleep apnea, sleep apnea)
ED Past Surgical History: Appendectomy, Cardiac (CABG), Cholecystectomy, Orthopedic (right knee, Left elbow) and Other (Cataracts)
Patient has exhibited threatening behavior?: No
PSI?: No
Social History
Tobacco: Former smoker
Alcohol: Occasional
Drug: None
Personal:
Living: assisted living
Review of Systems
Review of Systems
All Other Systems: ROS reviewed and negative except as documented in HPI and ROS
Constitutional: Denies fever or chills
Respiratory: Reports cough and trouble breathing
Cardiac: Denies chest pain or diaphoresis
ABD/GI: Denies abdominal pain, nausea or vomiting
Musculoskeletal: Denies edema, neck pain or back pain
Neurological: Denies dizzy or headache
Phy Exam
Physical Exam
Physical Exam:
General: Awake, alert, oriented x3; no acute distress
Head: Normocephalic, atraumatic
Eyes: Conjunctiva normal, sclera anicteric
Throat: Airway intact, handling secretions
Neck: Trachea midline, no JVD
Lungs: Faint rales at the lung bases, no appreciable wheezing; normal pulse ox and respiratory rate
Heart: Regular rate and rhythm, no murmurs, gallops, or rubs
Abd: Soft, non distended, nontender
Neuro: No gross deficits
Skin: no rash
Extremities: Trace edema around the ankles bilaterally, equal pulses in all extremities
Scores
Heart Failure Risk
Heart Failure Risk Score: Not Applicable
Heart Score for Chest Pain Patients
STEMI patient?: Not applicable
Withdrawal Assessment of Alcohol
Withdrawal Assessment Completed?: Not applicable
Course
Orders/Labs/Results
Orders:
Orders
08/13/24 Breakfast
1600 calorie (13 carb) Diabetic
At Your Request: Limited Participation
Fluid Restriction: 1440 mL/day (48 oz)
Diabetic Diet: Sodium, 2 Gram
08/13/24 09:37
EKG [Electrocardiogram (*1)] Urgent
Reason for Study: Shortness of Breath
08/13/24 09:38
EKG- Treatment ONCE
08/13/24 09:51
Complete Blood Count/With Diff Urgent
Comprehensive Metabolic Panel Urgent
08/13/24 10:39
CR Chest Portable - 1 View Urgent
Comment:
Reason For Exam: SOB, severe HTN
Reason Study Needs to be Portable: Unable to Transport
08/13/24 11:06
Pro-BNP [NT-proBNP] Stat
08/13/24 11:09
Furosemide [Lasix] 40 mg IV NOW STA
Nitroglycerin Ointment [Nitro-Bid] 1 inch TOPICAL NOW STA
08/13/24 12:03
Nitroglycerin 100 mg/250 ml [Nitroglycerin Premix] 100 mg in 250 ml IV NOW
Initial dose in mcg/min, then titrate:: 5
Titrate to keep:: SBP < 160 mmHg
Titrate by mcg/min:: 5 mcg/min, may increase by 10 mcg/min if dose > 20 mcg/min
Frequency of titrations (minutes):: every 3-5 minutes
Maximum dose in mcg/min:: 200
Begin to taper infusion when:: Remained at goal for 2hrs
Taper by mcg/min:: 5 mcg/min
Frequency of taper (minutes) if patient maintains goal:: 30
Taper to off?: Yes
If infusion off & no longer maintaining goal:: Contact Provider
08/13/24 12:28
Admit/Transfer Patient As Directed
Co-Sign Provider:
Level of Care: Inpatient admission
Assign to:: IMU- Intermediate Care
Physician / Group: sumaya
Diagnosis: HTN emergency
Reason for Hospitalization: HTn emergency
Expected length of stay greater than two midnights?: Yes
ELOS- Estimated Length of Stay in days: 3
I certify the patient meets the requirements for IP care: Yes
PRN Pain Medication Management As Directed
May give lesser potent ordered pain med per pt: Yes
preference::
Protocol:: Medication orders for pain may be administered in a
manner that supports deferring to patient preference
when the pt is:
- Requesting an ordered lesser potent pain medication.
Least to most potent pain medications are defined
as: acetaminophen < NSAID < tramadol < opioids
(morphine, oxycodone, hydromorphone).
- Requesting a lesser dose of the same medication IF
ORDERED.
- Requesting a less intrusive route of administration
if both routes are prescribed by the provider (PO <
IV).
08/13/24 12:29
Code Status As Directed
Resuscitation Status: Full Code
08/13/24 12:46
DNR Bracelet Application ONCE
08/13/24 14:27
Dextrose 50%-Water [Dextrose 50% Syringe] 12.5 grams IV [id number] PRN
Glucagon [GlucaGen] 1 mg IM PRN PRN
Nitroglycerin 100 mg/250 ml [Nitroglycerin Premix] 100 mg in 250 ml IV PER PROTOCOL
Currently infusing. Continue current dose and titrate:: Yes
Titrate to keep:: SBP < 160 mmHg
Titrate by mcg/min:: 5 mcg/min, may increase by 10 mcg/min if dose > 20 mcg/min
Frequency of titrations (minutes):: every 3-5 minutes
Maximum dose in mcg/min:: 200
Begin to taper infusion when:: Remained at goal for 2hrs
Taper by mcg/min:: 5 mcg/min
Frequency of taper (minutes) if patient maintains goal:: 30
Taper to off?: Yes
If infusion off & no longer maintaining goal:: Contact Provider
08/13/24 14:27
CARDIOLOGY CONSULT Routine
Consulting Provider: Marlo Robb
Was physician already notified: Yes
HF DIETARY CONSULT Routine
HF EDUCATOR CONSULT Routine
Comment:
Activity As Directed
Activity Level: As Tolerated
Bedside Glucose Monitoring As Directed
Frequency: AC&HS
Additional Instructions:: Change to q6h if pt on TPN, tube feeding or not eating
Intake/ Output As Directed
Frequency: Per unit guidelines
Patient Education As Directed
Type: CHF folder
Comment: give on admission. Document in Interdisciplinary Education record
Sleep Apnea Assessment by RN As Directed
Comment:
Physician Instructions:
Vital Signs As Directed
Frequency: Other
Additional Instructions:: Q12 or per unit guidelines if more frequent.
Weight As Directed
Frequency: Daily
Type of Scale: Standing Scale
Comment: Daily morning weight. If unable to stand, use balanced bed scale.
Weight As Directed
Frequency: Once
Type of Scale: Standing Scale
Comment: Upon Admission. If unable to stand, use balanced bed scale.
Pulse Ox/cont/shift [RESP] Routine
Quantity: 1
Special Instructions: Daily pulse oximetry at rest. If greater than 92% at rest also obtain pulse oximetry
while ambulating as tolerated.
08/13/24 16:30
Insulin Aspart Corrective Low [Novolog Flexpen-Low Resistance] See Protocol SC AC
08/13/24 20:00
Apixaban [Eliquis] 5 mg PO BID
08/13/24 22:00
Losartan [Cozaar] 50 mg PO HS
Rosuvastatin Calcium [Crestor] 40 mg PO HS
sotorasib [Lumakras] 960 mg PO HS
08/14/24 06:00
Basic Metabolic Panel IN AM
Cardiovascular Evaluation IN AM
Complete Blood Count/With Diff IN AM
Glycohemoglobin (HgbA1c) IN AM
Pdidi-Xyve-Rfwnfgs IN AM
Magnesium IN AM
TSH Reflex To Free T4 IN AM
08/14/24 08:00
Amiodarone [Pacerone] 200 mg PO DAILY
Furosemide [Lasix] 40 mg IV DAILY
Metoprolol Xl [Toprol Xl] 25 mg PO DAILY
08/15/24 06:00
Basic Metabolic Panel IN AM
Complete Blood Count/With Diff IN AM
08/16/24 06:00
Basic Metabolic Panel IN AM
Complete Blood Count/With Diff IN AM
08/16/24 08:00
Methimazole [Tapazole] 5 mg PO MoWeFr@0800
08/17/24 06:00
Complete Blood Count/With Diff IN AM
Abnormal Lab Results
08/13/24
09:51
RBC 3.41 L 10^6/uL
(4.70-6.10)
Hgb 9.6 L g/dL
(13.0-18.0)
Hct 30.6 L %
(39.0-52.0)
MCHC 31.4 L g/dL
(33.0-37.0)
RDW 15.1 H %
(11.5-14.5)
Absolute Monos (auto) 0.8 H 10^3/uL
(0.1-0.6)
Lymphocytes % 20.1 L %
(20.5-51.1)
Monocytes % 12.2 H %
(1.7-9.3)
Chloride 109 H mmol/L
(98-107)
Carbon Dioxide 19 L mmol/L
(22-30)
Creatinine 1.5 H mg/dL
(0.7-1.3)
Glucose 146 H mg/dl
(70-99)
Total Protein 6.2 L g/dl
(6.3-8.2)
08/13/24 09:51
08/13/24 09:51
Vital Signs
Initial and Last Documented VS:
Initial Vital Signs
Temp Pulse Resp BP Pulse Ox
36.6 C 59 14 189/88 96
08/13/24 09:39 08/13/24 09:39 08/13/24 09:39 08/13/24 09:39 08/13/24 09:39
Last Documented Vital Signs
Temp Pulse Resp BP Pulse Ox
36.8 C 63 12 119/70 93
08/13/24 14:48 08/13/24 15:00 08/13/24 15:00 08/13/24 14:55 08/13/24 14:36
MDM/Problems Addressed
Differential Diagnosis Includes:
Hypertensive crisis//pulmonary edema, CHF, COPD exacerbation, pneumonia
MDM/Problems Addressed:
79-year-old male presents to the emergency room with cough and breathing difficulties that started last night; he is severely hypertensive, received 1 nitroglycerin from EMS prehospital. Blood pressure 190s over 90s on arrival here. Rest of vitals
normal. Physical exam as above. Will place an IV check labs including a CBC and a CMP. Check proBNP. Check stat chest x-ray and EKG. Will provide some Nitropaste here. Reassess after the above.
Labs reviewed: CBC shows stable anemia, CMP shows stable renal insufficiency. proBNP was elevated at 2500. Chest x-ray shows signs consistent with CHF. Marginal effects of Nitropaste, still severely hypertensive. Will start on nitroglycerin
infusion for blood pressure control. Will provide IV Lasix. Admit for continued care. Case discussed with hospitalist.
Chronic conditions affecting care:
Hypertension
Acute Exacerbation and/or Progression of Chronic Illness:
Hypertensive crisis treated as above
Acute Exacerbation and/or Progression of Chronic Illness: HTN
*Radiology
Radiology exam reviewed: preliminary read by ED provider and radiology read reviewed
*Pulse Oximetry
Patient hypoxic: no
*EKG
Interpreted by ED Provider?: Yes
Heart Rate: 62
Rate: normal
Rhythm: sinus
[place]: normal axis
Interval: normal interval
QRS Pattern: normal QRS
Ischemia: non-specific ST changes
*Critical Care Note
Total Time (30-74mins, 75-104mins- exclusive of procedures): 32
comment:
Critical care statement: A total of 32 minutes of critical care time was provided for this patient. This includes management of unstable vital signs, evaluation of the patient at bedside, frequent reassessment, discussion with
consultants/hospitalist, and review of pertinent medical records. This time was separate from time utilized to perform any aforementioned documented procedures
Data Reviewed
Review of Other/Old Records Reveals: Labs and Records
Source: patient, records and ambulance crew
Patient Management
Discussion with other providers: Hospitalist (Discussed with hospitalist)
Escalation/DeEscalation of care consider admission/obs:
Admission indicated
ED Attending Note
-
Portions of this chart may have been created with voice recognition software.� Occasional wrong word or��sound alike� substitutions may have occurred due to the inherent limitations of voice recognition software.
Discharge Plan
Departure
Patient Disposition: Admit
Date of Disposition: 08/13/24
Time of Disposition: 12:05
Admit to doctor: Sumaya
Presentation/result/management discussed w/ accepting MD/DO: Hospitalist
Discharge Problem:
Hypertensive emergency, CHF (congestive heart failure)
Interventions
Interventions:
*Risk Screen - Suicide Last Done: 08/13/24 09:39
*General Assessment Last Done: 08/13/24 09:39
*Neglect/Abuse Screening Last Done: 08/13/24 09:39
ED- Fall Risk Assessment Last Done: 08/13/24 09:49
*ED COVID-19 Vaccine History Last Done: 08/13/24 09:39
*Nursing Disposition Last Done: 08/13/24 14:37
ED- Cardiac Assessment Last Done: 08/13/24 09:49
ED- Pulmonary Assessment Last Done: 08/13/24 09:49
Discharge Date and Time
Discharge Date/Time: 08/13/24 14:38
--- NOTE | 2024-08-13 15:45 | PTCARENOTE ---
Admitted to IMU - monitors placed and admission completed at bedside. SR on tele, BP 160/91 repeat 119/70- remains on IV NTG gtt at 35mcg/min. LC occ cough, has chronic right middle back pain currently 3/10 takes Tylenol PRN. His chemo drug
Lumakas causes freq loose stools takes immodium BID PRN- he will d/w provider in am. PO diet ordered - accu check 130. Call santos in reach.
[2024-08-13 15:48] LABS: Glucose - Point of Care 130 mg/dl (70-99)
[2024-08-13] MEDS: NOVOLOG FLEXPEN-LOW RESISTANCE SC (15:51)
[2024-08-13] MEDS: NOVOLOG MIX 70/30 FLEXPEN 5 UNITS SC (16:00)
--- NOTE | 2024-08-13 17:31 | PTCARENOTE ---
Rushed into bathroom, rates up to 100s on the way out rates shot up to AF 170s - placed back to bed rates returned to SR 70s. BP 136/75. Relayed to Dr. Robb.
--- NOTE | 2024-08-13 19:25 | W.PN.UPDATE ---
Update Note
Progress Note Update
-Reported by the nursing staff that patient had multiple episodes of short periods a-fib with hr 130s-150s after using bathroom that was converted to NSR on its own without interventions.
-Now is a-fib and sustaining 130s-150s. Denied chest pain or sob. EKG, cbc, bmp ordered
- 5mg of IV Lopressor ordered.
-Patient continue with a-fib hr 140-160s , patient on amiodarone 200mg po daily and he skipped all his meds this morning, will give Amiodarone IV bolus.
-Converted to NSR after receiving Amiodarone 100mg IV bolus x 2 with hr 76.
[2024-08-13] MEDS: LOPRESSOR 2.5 MG IV ×2 (19:29→21:00)
[2024-08-13] MEDS: ELIQUIS 5 MG PO (19:56)
[2024-08-13 20:01] LABS: Blood Urea Nitrogen 20 mg/dl (9-20); Carbon Dioxide 19 mmol/L (22-30); Chloride 107 mmol/L (98-107); Estimated Creatinine Clearance 39 ml/min; Glucose 150 mg/dl (70-99); Magnesium 1.9 mg/dl (1.6-2.3); Potassium 4.1 mmol/L (3.5-5.1); Sodium 140 mmol/L (135-145); eGFR 46.77
[2024-08-13] MEDS: MYLICON 80 MG PO (20:03)
[2024-08-13] MEDS: IMODIUM 2 MG PO (20:03)
[2024-08-13] MEDS: CRESTOR 40 MG PO (21:13)
[2024-08-13] MEDS: COZAAR 50 MG PO (21:13)
[2024-08-13 21:27] LABS: Glucose - Point of Care 128 mg/dl (70-99)
--- NOTE | 2024-08-13 21:57 | PTCARENOTE ---
Pt received at change of shift resting in bed. AAOx3. Nitro gtt infusing at 35mcq/min. SBP 127-151. In Afib rate 140's-160's. Saniya KAHN TT'd and made aware. Order entered for Lopressor 2.5mg IV and received as ordered. An hour later HR still
140's-160's. Saniya KAHN TT'd again and ordered Nitro gtt to be placed on hold and additional dose of Lopressor 2.5mg IV which pt did received. EKG obtained. Saniya KAHN on floor to assess. Pt without complaint. Call santos remains within reach. Will
continue to monitor.
[2024-08-13] MEDS: CORDARONE 102 MG IV (23:06)
--- NOTE | 2024-08-13 23:25 | PTCARENOTE ---
6929 Pt ordered Amiodarone bolus d/t continued Afib rates 130's-150's. Bolus given as ordered. Will continue monitor.
[2024-08-13] MEDS: TYLENOL 1000 MG PO (23:35)
[2024-08-14] VITALS (25 sets, daily range): BP systolic 110–182; BP diastolic 49–129; BMI 26.7
[2024-08-14] MEDS: CORDARONE 102 MG IV (02:01)
--- NOTE | 2024-08-14 02:16 | PTCARENOTE ---
Pt received 2nd Amiodarone bolus for HR 120's-150's. Currently in SR rate 73. BP 111/87. Pt resting comfortable. Call santos remains within reach. Will continue to monitor.
[2024-08-14 04:54] LABS: % Basophils 0.1 % (0-2); % Eosinophils 0.5 % (0-6); % Immature Granulocytes 0.4 % (0-0.5); % Lymphocytes 15.7 % (20.5-51.1); % Monocytes 11.2 % (1.7-9.3); % Neutrophils 72.1 % (42.2-75.2); Absolute Lymphocytes 1.2 10^3/uL (1.2-3.4); Absolute Monocytes 0.9 10^3/uL (0.1-0.6); Absolute Neutrophils 5.7 10^3/uL (1.4-6.5); Hemoglobin 9.7 g/dL (13.0-18.0); Mean Corp Hgb Conc. 32.3 g/dL (33.0-37.0); Mean Corpuscular Hgb 27.7 pg (27.0-31.0); Mean Corpuscular Volume 85.7 fL (80.0-94.0); Mean Platelet Volume 10.3 fL (7.4-10.4); Nucleated Red Blood Cells % 0 % (-); Platelet Count 295 10^3/uL (130-400); White Blood Cell Count 7.9 10^3/uL (4.8-10.8)
[2024-08-14 05:17] LABS: ALT (SGPT) 12 U/L (0-50); AST (SGOT) 17 U/L (17-59); Albumin 3.7 g/dl (3.5-5.0); Alkaline Phosphatase 69 U/L (38-126); Blood Urea Nitrogen 20 mg/dl (9-20); Carbon Dioxide 20 mmol/L (22-30); Chloride 107 mmol/L (98-107); Estimated Creatinine Clearance 39 ml/min; Glucose 143 mg/dl (70-99); HDL Cholesterol 55 mg/dl; LDL Cholesterol, Calculated 81 mg/dl; Magnesium 1.9 mg/dl (1.6-2.3); Sodium 140 mmol/L (135-145); Total Bilirubin 0.4 mg/dl (0.2-1.3); Total Cholesterol 160 mg/dl (50-199); Triglyceride 120 mg/dl (10-149); Very Low Density Lipoprotein 24 mg/dl (0-30); eGFR 46.77
[2024-08-14 05:48] LABS: TSH Reflex To Free T4 9.15 uIU/ml (0.47-4.68)
[2024-08-14] MEDS: TYLENOL 1000 MG PO (05:49)
[2024-08-14 06:18] LABS: Free T4 1.48 ng/dl (0.78-2.19)
[2024-08-14 07:29] LABS: Glucose - Point of Care 169 mg/dl (70-99)
[2024-08-14] MEDS: ELIQUIS 5 MG PO ×2 (07:51→19:19)
[2024-08-14] MEDS: PACERONE 200 MG PO (07:51)
[2024-08-14] MEDS: TOPROL XL 25 MG PO (07:51)
[2024-08-14] MEDS: NOVOLOG MIX 70/30 FLEXPEN 5 UNITS SC ×3 (07:52→16:31)
[2024-08-14] MEDS: LASIX 40 MG IV ×2 (08:00→16:31)
--- NOTE | 2024-08-14 08:10 | PTCARENOTE ---
pt aaox3. states h/a is gone does have chronic back pain. states tylenol helped with back also. breath sounds clear no cough. condom cath on pt.
--- NOTE | 2024-08-14 09:05 | W.PN.HOSP.TC ---
Today's Communication/Plan
-
Continue diuretics
Assessment / Plan
Assessment / Plan
Gen-AAOx3, NAD
HEENT-NC, AT, anicteric, clear oral mm
Neck-supple
CV-reg, no M, +S1/S2
Lungs-clear B/L
Abd-soft, NT, ND
Ext-no edema
Musculoskeletal-no cyanosis, clubbing
Skin-warm and dry
Neuro-grossly non-focal
Psych-calm, cooperative
Hypertensive emergency/essential hypertension -emergency resolved. Blood pressure improving. Presentation with acute heart failure, pulmonary edema.
He is on metoprolol and losartan at home.
Acute on chronic heart failure with midrange EF exacerbation -improving on IV Lasix. Not on diuretics at home. Cardiology following. Known history of ischemic cardiomyopathy.
Echocardiogram shows LVEF 40 to 45%, basal inferior/inferior septal hypokinesis, stage I diastolic dysfunction, mild/moderate eccentric AR.
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
CAD/CABG
Paroxysmal atrial fibrillation -continue amiodarone, Eliquis. Given IV amiodarone overnight for rapid rates.
Lung adenocarcinoma -currently on Lumakras.
DM2 without hyperglycemia -hemoglobin A1c pending. Glucose 143 this morning. On Humulin 70/30 at home.
BPH -with bladder outlet obstruction. Bladder scan shows 321 cc today. Patient intolerant of tamsulosin, states that it keeps him urinating all night long. Recommend following up after discharge with his urologist. Discussed with patient
implications of urinary retention including worsening renal function.
CKD 3a -stable.
Hyperlipidemia -on rosuvastatin.
Chronic normocytic anemia -hemoglobin near baseline.
Hyperthyroidism -on methimazole.
History of hemorrhagic stroke
COPD without exacerbation
DNR
Anticipated Discharge: 24 - 48 hours
Subjective/Interval History
-
Date of Service: August 14, 2024
Patient seen and examined. Feels better, denies shortness of breath or cough. No complaints.
Objective Data
-
Labs:
Laboratory Results
08/14/24
04:37
WBC 7.9
Hgb 9.7 L
Hct 30.0 L
Plt Count 295
Sodium 140
Potassium 4.0
Chloride 107
Carbon Dioxide 20 L
BUN 20
Creatinine 1.5 H
Glucose 143 H
Calcium 9.0
Total Bilirubin 0.4
AST 17
ALT 12
Alkaline Phosphatase 69
Vital Signs:
Vital Signs
Temp Pulse Resp BP Pulse Ox
98.1 F 64 14 164/76 99
08/14/24 07:05 08/14/24 08:00 08/14/24 08:00 08/14/24 08:00 08/14/24 08:00
I&O
08/13/24 08/14/24 08/15/24
06:59 06:59 06:59
Output Total 1700 / 1700 300 / 300
Balance -1700 / -1700 -300 / -300
Review of Systems
-
History Source: Patient
All other systems: Reviewed and negative
[2024-08-14] MEDS: NOVOLOG FLEXPEN-LOW RESISTANCE 1 UNITS SC ×2 (09:54→16:32)
[2024-08-14] MEDS: IMODIUM 2 MG PO ×2 (09:54→19:19)
[2024-08-14] MEDS: MYLICON 80 MG PO ×2 (09:54→19:19)
[2024-08-14 10:14] LABS: Glycohemoglobin (HgbA1c) 6.9 % (4.0-5.6)
[2024-08-14 11:18] LABS: Glucose - Point of Care 214 mg/dl (70-99)
[2024-08-14] MEDS: NOVOLOG FLEXPEN-LOW RESISTANCE 2 UNITS SC (11:21)
--- NOTE | 2024-08-14 11:31 | W.PN.CD ---
Addendum entered and electronically signed by Marlo Robb MD 08/14/24 12:21:
79 yo male with PMH of CAD/CABG, ICM EF 40-45%, CKD3b admitted with acute on chronic systolic HF. Main symptom was cough, and this has improved. Exam with RRR, no murmurs, trace edema. Cr 1.5 (stable).
Continue IV lasix. Trend Cr, weight.
Original Note:
Today's Communication / Plan
-
await pricing entresto
Con't diuresis
Impression / Plan
-
Acute HFrEF: mildly volume overloaded
-Cough improved with diuresis. weight down
-Con't diuretics
-he thinks his normal weight is 183 and he is about 185 lbs. Weight 180 lbs today.
-CHF education
ICM:
-08/13/24 Echo [id number],Basal inferior/inferoseptal hypokinesis. Stage I diastolic dysfunction suggestive of abnormal relaxation.Mild/moderate
eccentric aortic regurgitation.
-patient is on BB and ARB
-based on findings, may adjust losartan to Entresto and add SGLT2 inhibitor. Await pricing.
HTN:
-severe on admit.
-con't titrate meds.
CAD s/p CABG:
-stable without CP
PAF:
-stable in SR
-on amiodarone. Required IV amio bolus for breakthrough
-continue Eliquis
Subjective: Pt did not cough last pm. Feeling improved since admit. NO CP, palps, no SOB at rest .
Physical Exam
Vital Signs/Labs
Vital Signs
Temp Pulse Resp BP Pulse Ox
98.1 F 65 16 154/73 100
08/14/24 07:05 08/14/24 11:01 08/14/24 11:01 08/14/24 10:00 08/14/24 11:01
08/13/24 08/14/24 08/15/24
06:59 06:59 06:59
Actual Weight 82 kg
08/14/24 04:37
08/14/24 04:37
Magnesium 1.9 mg/dl (1.6-2.3) 08/14/24 04:37
Triglycerides 120 mg/dl (10-149) 08/14/24 04:37
LDL Cholesterol, Calc 81 mg/dl 08/14/24 04:37
VLDL Cholesterol, Calc 24 mg/dl (0-30) 08/14/24 04:37
HDL Cholesterol 55 mg/dl 08/14/24 04:37
Free T4 1.48 ng/dl (0.78-2.19) 08/14/24 04:37
08/13/24
11:06
Ocp-J-Ynosrnfktji Pept 2550
Physical Exam
Constitutional: No acute distress
Cardiovascular: Rhythm & rate is regular and Pedal edema is absent
Respiratory: Respiratory effort normal and Lungs clear to auscul.
Neuro/Psych: AO x 3
Data Reviewed
-
Date of Service: August 14, 2024
Echo: Report Reviewed by me (Echo 08/13/24 Mild/moderately reduced left ventricular systolic function. Left ventricular ejection fraction is 40-45% by Fitzpatrick's method. Basal inferior/inferoseptal hypokinesis. Stage I diastolic dysfunction
suggestive of abnormal relaxation. Mild/moderate eccentric aortic regurgitation.)
Labs: Labs Reviewed by me
--- NOTE | 2024-08-14 12:48 | CM ---
Addendum entered by Effie Velásquez RN 08/14/24 13:50:
Entresto $173
Jardiance $153
Farxiga $146
Cm confirmed demographics. with patient. Patient lives independently with partner. Patient does not have a history of VN. Patient has been in rehab in [place], but cannot remember the name of it. Patient is active with his PCP. Patient uses [facility].
CM discussed medication costs. Patient expressed concerns regarding costs, but CM offered coupons and patient was agreeable. Patient did express concerns over side effects of medications and would like to discuss options with provider further. CM
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
Cm discussed home care options. Patient refused VN.
Original Note:
Cm spoke with patient's pharmacy. CM is awaiting eaton check for Entresto and Jardiance/Farxiga
[2024-08-14 16:39] LABS: Glucose - Point of Care 150 mg/dl (70-99)
[2024-08-14] MEDS: NON-FORMULARY ITEM PO (18:13)
[2024-08-14] MEDS: NON-FORMULARY ITEM 960 MG PO (20:07)
[2024-08-14] MEDS: COZAAR 50 MG PO (20:08)
[2024-08-14] MEDS: CRESTOR 40 MG PO (20:08)
[2024-08-14 21:12] LABS: Glucose - Point of Care 178 mg/dl (70-99)
[2024-08-15] VITALS (12 sets, daily range): BP systolic 119–170; BP diastolic 60–80; BMI 26.2
[2024-08-15] MEDS: TYLENOL 1000 MG PO ×2 (04:48→16:06)
[2024-08-15 05:01] LABS: Blood Urea Nitrogen 23 mg/dl (9-20); Calcium 8.9 mg/dl (8.4-10.2); Carbon Dioxide 19 mmol/L (22-30); Chloride 105 mmol/L (98-107); Estimated Creatinine Clearance 39 ml/min; Glucose 136 mg/dl (70-99); Potassium 4.2 mmol/L (3.5-5.1); Sodium 139 mmol/L (135-145); eGFR 46.77
--- NOTE | 2024-08-15 08:03 | W.PN.HOSP.TC ---
Today's Communication/Plan
-
Continue current care
Assessment / Plan
Assessment / Plan
Gen-AAOx3, NAD
HEENT-NC, AT, anicteric, clear oral mm
Neck-supple
CV-reg, no M, +S1/S2
Lungs-clear B/L
Abd-soft, NT, ND
Ext-no edema
Musculoskeletal-no cyanosis, clubbing
Skin-warm and dry
Neuro-grossly non-focal
Psych-calm, cooperative
Hypertensive emergency/essential hypertension -emergency resolved. Blood pressure improving. Presentation with acute heart failure, pulmonary edema.
He is on metoprolol and losartan at home.
Acute on chronic heart failure with midrange EF exacerbation -improving on IV Lasix. Not on diuretics at home. Cardiology following. Known history of ischemic cardiomyopathy.
Echocardiogram shows LVEF 40 to 45%, basal inferior/inferior septal hypokinesis, stage I diastolic dysfunction, mild/moderate eccentric AR.
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
CAD/CABG
Paroxysmal atrial fibrillation -continue amiodarone, Eliquis.
Lung adenocarcinoma -currently on Lumakras.
DM2 without hyperglycemia -hemoglobin A1c 6.9%. Glucose 136 this morning. On Humulin 70/30 at home.
BPH -with bladder outlet obstruction. Bladder scan shows 321 cc today. Patient intolerant of tamsulosin, states that it keeps him urinating all night long. Recommend following up after discharge with his urologist. Discussed with patient
implications of urinary retention including worsening renal function.
CKD 3a -stable.
Hyperlipidemia -on rosuvastatin.
Chronic normocytic anemia -hemoglobin near baseline.
Hyperthyroidism -on methimazole.
History of hemorrhagic stroke
COPD without exacerbation
Obstructive sleep apnea -intolerant of CPAP. Gets hypoxic at nighttime, at least needs home oxygen nocturnally on discharge.
DNR
Anticipated Discharge: Within 24 hours
Subjective/Interval History
-
Date of Service: August 15, 2024
Patient seen and examined, no complaints. States cough resolved. Denies shortness of breath.
Objective Data
-
Labs:
Laboratory Results
08/15/24
04:27
Sodium 139
Potassium 4.2
Chloride 105
Carbon Dioxide 19 L
BUN 23 H
Creatinine 1.5 H
Glucose 136 H
Calcium 8.9
Vital Signs:
Vital Signs
Temp Pulse Resp BP Pulse Ox
98.3 F 64 14 146/70 93
08/15/24 03:09 08/15/24 06:15 08/15/24 06:15 08/15/24 06:08 08/15/24 06:15
I&O
08/14/24 08/15/24 08/16/24
06:59 06:59 06:59
Intake Total 400 / 400
Output Total 1700 / 1700 2825 / 2825
Balance -1700 / -1700 -2425 / -2425
Review of Systems
-
History Source: Patient
All other systems: Reviewed and negative
[2024-08-15] MEDS: LASIX 40 MG IV ×2 (08:28→16:06)
[2024-08-15] MEDS: PACERONE 200 MG PO (08:29)
[2024-08-15] MEDS: MYLICON 80 MG PO (08:29)
[2024-08-15] MEDS: TOPROL XL 25 MG PO (08:29)
[2024-08-15] MEDS: IMODIUM 2 MG PO ×2 (08:29→19:55)
[2024-08-15] MEDS: ELIQUIS 5 MG PO ×2 (08:29→19:56)
[2024-08-15] MEDS: NOVOLOG FLEXPEN-LOW RESISTANCE 1 UNITS SC ×3 (08:30→16:56)
[2024-08-15] MEDS: NOVOLOG MIX 70/30 FLEXPEN 5 UNITS SC ×3 (08:30→16:56)
[2024-08-15 08:40] LABS: Glucose - Point of Care 150 mg/dl (70-99)
--- NOTE | 2024-08-15 08:46 | PTCARENOTE ---
pt aaox3. states chronic pain in back does not want pain med at this time. pt on 2lnc at night room air now o2 sat 98%. breath sounds clear. condom cath on pt.
--- NOTE | 2024-08-15 11:16 | PTCARENOTE ---
pt oob to bathroom with min one person assist.
[2024-08-15 12:36] LABS: Glucose - Point of Care 198 mg/dl (70-99)
--- NOTE | 2024-08-15 12:37 | W.PN.CD ---
Today's Communication / Plan
-
continue IV lasix
trend Cr: if remains 1.5, or higher, will need to reduce eliquis
Impression / Plan
-
Acute HFrEF
-lower than prior dry weight
-sxs of cough and abdominal fullness are improving
-case mgmt consulted for entresto and SGLT2i; patient has expressed concerns regarding new meds and side effects
-cont lasix 40mg IV bid, with close monitoring of labs/tele
ICM:
-08/13/24 Echo EF 40-45,Basal inferior/inferoseptal hypokinesis. Stage I diastolic dysfunction suggestive of abnormal relaxation.Mild/moderate
eccentric aortic regurgitation.
-patient is on BB and ARB
HTN:
-severe on admit: improved with diuresis
-cont Toprol XL 25mg daily, losartan 50mg daily
CAD s/p CABG:
-stable without CP
-not on ASA since on eliquis for A fib
PAF:
-h/o CVA
-stable in SR
-on amiodarone. Required IV amio bolus for breakthrough early in admit
-continue Eliquis: will need to see where Cr settles out for final dosing prior to d/c
Subjective
cough and abdominal fullness are improving
Physical Exam
Vital Signs/Labs
Vital Signs
Temp Pulse Resp BP Pulse Ox
97.8 F 63 15 125/60 96
08/15/24 07:50 08/15/24 11:00 08/15/24 11:00 08/15/24 10:00 08/15/24 10:45
08/14/24 08/15/24 08/16/24
06:59 06:59 06:59
Actual Weight 82 kg 80.5 kg
08/14/24 04:37
08/15/24 04:27
Magnesium 1.9 mg/dl (1.6-2.3) 08/14/24 04:37
Triglycerides 120 mg/dl (10-149) 08/14/24 04:37
LDL Cholesterol, Calc 81 mg/dl 08/14/24 04:37
VLDL Cholesterol, Calc 24 mg/dl (0-30) 08/14/24 04:37
HDL Cholesterol 55 mg/dl 08/14/24 04:37
Free T4 1.48 ng/dl (0.78-2.19) 08/14/24 04:37
08/13/24
11:06
Fjs-D-Fhiligcvdwf Pept 2550
Physical Exam
Constitutional: No acute distress and Comfortable
EENT: Moist mucous membranes
Cardiovascular: Rhythm & rate is regular, Pedal edema is absent, Systolic murmur absent and JVD present
Respiratory: Respiratory effort normal and Lungs clear to auscul.
Neuro/Psych: AO x 3
Data Reviewed
-
Date of Service: August 15, 2024
EKG: Other (Tele: SR/SB 50s-60s)
Labs: Labs Reviewed by me
[2024-08-15 17:03] LABS: Glucose - Point of Care 156 mg/dl (70-99)
[2024-08-15] MEDS: MYLICON PO ×2 (19:55→20:07)
[2024-08-15] MEDS: COZAAR 50 MG PO (19:56)
[2024-08-15] MEDS: CRESTOR 40 MG PO (19:56)
[2024-08-15] MEDS: NON-FORMULARY ITEM PO (19:57)
[2024-08-15] MEDS: NON-FORMULARY ITEM 320 MG PO (20:08)
[2024-08-15 22:02] LABS: Glucose - Point of Care 142 mg/dl (70-99)
[2024-08-16] VITALS (15 sets, daily range): BP systolic 113–172; BP diastolic 57–78; PULSE 64–69; O2SAT 99; BMI 26.2
--- NOTE | 2024-08-16 03:42 | PTCARENOTE ---
Assumed care for patient overnight, received report via dayshift RN. Pt AAOx3. Pt expressed slight anxiety regarding medication costs, case management on board. Reviewed medication list with patient, pt receptive to education. Pt is normal sinus on
tele. Pt respirations clear and unlabored. Pt denies any pain at this time. Pt stands at bedside to void using urinal. Pt appears to be sleeping comfortably in bed, call santos is within reach.
[2024-08-16 05:41] LABS: Blood Urea Nitrogen 29 mg/dl (9-20); Carbon Dioxide 20 mmol/L (22-30); Chloride 104 mmol/L (98-107); Estimated Creatinine Clearance 35 ml/min; Glucose 130 mg/dl (70-99); Sodium 138 mmol/L (135-145); eGFR 40.25
[2024-08-16 07:52] LABS: Glucose - Point of Care 140 mg/dl (70-99)
[2024-08-16] MEDS: NOVOLOG FLEXPEN-LOW RESISTANCE SC (08:04)
[2024-08-16] MEDS: ELIQUIS 2.5 MG PO ×2 (08:24→20:24)
[2024-08-16] MEDS: NOVOLOG MIX 70/30 FLEXPEN 5 UNITS SC ×3 (08:24→17:35)
[2024-08-16] MEDS: TOPROL XL 25 MG PO (08:25)
[2024-08-16] MEDS: LASIX 40 MG IV (08:25)
[2024-08-16] MEDS: PACERONE 200 MG PO (08:25)
[2024-08-16] MEDS: IMODIUM 2 MG PO (08:27)
[2024-08-16] MEDS: MYLICON 80 MG PO (08:27)
[2024-08-16] MEDS: TAPAZOLE 5 MG PO (08:40)
--- NOTE | 2024-08-16 08:44 | W.PN.CD ---
Addendum entered and electronically signed by Rafy Morrow MD 08/16/24 08:50:
Note Eliquis was adjusted due to creatinine greater than 1.5. Patient now on Eliquis 2.5 twice daily if creatinine drops below 1.5 then would consider going back to 5 mg twice daily
IV Lasix transition to oral. Note patient did receive IV Lasix this morning. Continue to monitor creatinine.
Original Note:
Today's Communication / Plan
-
Maintained on losartan. Can titrate dose if renal function remains stable
Transition from IV Lasix to oral
Due to cost Entresto and Farxiga not started
Impression / Plan
-
Acute HFrEF
-lower than prior dry weight
-sxs of cough and abdominal fullness are improving
-case mgmt consulted for entresto and SGLT2i; patient has expressed concerns regarding cost. It appears the costs are between $100 and $4850 per month for these medications which is too expensive. Based on cost we will continue with ARB
and diuretic
-I's and O's another liter negative over the last 24 hours. Creatinine up to 1.7 we will transition to oral diuretic
ICM:
-08/13/24 Echo EF 40-45,Basal inferior/inferoseptal hypokinesis. Stage I diastolic dysfunction suggestive of abnormal relaxation.Mild/moderate
eccentric aortic regurgitation.
-patient is on BB and ARB
HTN:
-severe on admit: improved with diuresis
-cont Toprol XL 25mg daily, losartan 50mg daily
CAD s/p CABG:
-stable without CP
-not on ASA since on eliquis for A fib
PAF:
-h/o CVA
-stable in SR
-on amiodarone. Required IV amio bolus for breakthrough early in admit
-continue Eliquis: will need to see where Cr settles out for final dosing prior to d/c
Subjective
Cough improved. No complaints of shortness of breath no edema creatinine up to 1.7
Physical Exam
Vital Signs/Labs
Vital Signs
Temp Pulse Resp BP Pulse Ox
98.3 F 74 8 167/78 89
08/16/24 04:30 08/16/24 08:25 08/16/24 06:30 08/16/24 08:25 08/16/24 06:30
08/15/24 08/16/24 08/17/24
06:59 06:59 06:59
Actual Weight 80.5 kg 80.3 kg
08/14/24 04:37
08/16/24 04:55
Magnesium 1.9 mg/dl (1.6-2.3) 08/14/24 04:37
Triglycerides 120 mg/dl (10-149) 08/14/24 04:37
LDL Cholesterol, Calc 81 mg/dl 08/14/24 04:37
VLDL Cholesterol, Calc 24 mg/dl (0-30) 08/14/24 04:37
HDL Cholesterol 55 mg/dl 08/14/24 04:37
Free T4 1.48 ng/dl (0.78-2.19) 08/14/24 04:37
08/13/24
11:06
Zfc-M-Xyidjutxzrn Pept 2550
Physical Exam
Constitutional: No acute distress
Cardiovascular: Rhythm & rate is regular
Respiratory: Lungs clear to auscul.
GI: Soft
Neuro/Psych: Alert
Data Reviewed
-
Date of Service: August 16, 2024
Medical Decision Making: Reviewed Test Results
Echo: Report Reviewed by me (Echocardiogram 08/13/2024 ejection fraction 40-45, basal inferior, inferoseptal hypokinesis mild to moderate eccentric aortic regurgitation)
Medical Tests (PFT, Pathology etc): Report Reviewed by me
Labs: Labs Reviewed by me
--- NOTE | 2024-08-16 09:58 | PTCARENOTE ---
Assumed care of patient this morning. He is aaox3, pleasant. Pt is anxious about cost of medications and about when he can go home. He had no complaints this morning. Ate a full breakfast. Assessment, care and VS as charted.
[2024-08-16 11:55] LABS: Glucose - Point of Care 217 mg/dl (70-99)
[2024-08-16] MEDS: NOVOLOG FLEXPEN-LOW RESISTANCE 2 UNITS SC (12:28)
--- NOTE | 2024-08-16 13:36 | W.PN.HOSP.TC ---
Today's Communication/Plan
-
Monitor vital signs see plan
Monitor renal function
Continue Lasix
Check nocturnal O2
Assessment / Plan
Assessment / Plan
Gen-AAOx3, NAD
HEENT-NC, AT, anicteric, clear oral mm
Neck-supple
CV-reg, no M, +S1/S2
Lungs-clear B/L
Abd-soft, NT, ND
Ext-no edema
Musculoskeletal-no cyanosis, clubbing
Skin-warm and dry
Neuro-grossly non-focal
Psych-calm, cooperative
Hypertensive emergency/essential hypertension -emergency resolved. Blood pressure improving. Presentation with acute heart failure, pulmonary edema.
He is on metoprolol and losartan at home.
Acute on chronic heart failure with midrange EF exacerbation -improving on IV Lasix. Not on diuretics at home. Cardiology following. Known history of ischemic cardiomyopathy.
Echocardiogram shows LVEF 40 to 45%, basal inferior/inferior septal hypokinesis, stage I diastolic dysfunction, mild/moderate eccentric AR.
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
CAD/CABG
Paroxysmal atrial fibrillation -continue amiodarone, Eliquis.
Lung adenocarcinoma -currently on Lumakras.
DM2 without hyperglycemia -hemoglobin A1c 6.9%. On Humulin 70/30 at home.
BPH -with bladder outlet obstruction. Patient intolerant of tamsulosin, states that it keeps him urinating all night long. Recommend following up after discharge with his urologist. Discussed with patient implications of urinary retention
including worsening renal function.
CKD 3a
cr 1.7 today;; lasix made PO. monitor creatinine
Hyperlipidemia -on rosuvastatin.
Chronic normocytic anemia -hemoglobin near baseline.
Hyperthyroidism -on methimazole.
History of hemorrhagic stroke
COPD without exacerbation
Obstructive sleep apnea -intolerant of CPAP. Gets hypoxic at nighttime, at least needs home oxygen nocturnally on discharge. check nocturnal O2
DNR
Anticipated Discharge: 24 - 48 hours
Subjective/Interval History
-
Date of Service: August 16, 2024
denies pain
Objective Data
-
Labs:
Laboratory Results
08/16/24
04:55
Sodium 138
Potassium 4.0
Chloride 104
Carbon Dioxide 20 L
BUN 29 H
Creatinine 1.7 H
Glucose 130 H
Calcium 9.0
Vital Signs:
Vital Signs
Temp Pulse Resp BP Pulse Ox
98.1 F 57 15 138/74 99
08/16/24 11:05 08/16/24 12:00 08/16/24 12:00 08/16/24 12:00 08/16/24 12:00
I&O
08/15/24 08/16/24 08/17/24
06:59 06:59 06:59
Intake Total 400 / 400
Output Total 2825 / 2825 1075 / 1075 325 / 325
Balance -2425 / -2425 -1075 / -1075 -325 / -325
[2024-08-16 17:02] LABS: Glucose - Point of Care 195 mg/dl (70-99)
[2024-08-16] MEDS: NOVOLOG FLEXPEN-LOW RESISTANCE 1 UNITS SC (17:35)
[2024-08-16] MEDS: TYLENOL 1000 MG PO (17:35)
--- NOTE | 2024-08-16 17:44 | PTCARENOTE ---
Patient's significant other at bedside and had a few questions regarding medications. All questions answered to RN ability.
--- NOTE | 2024-08-16 19:19 | RESPNOTE ---
pt refuses to do nocturnal oximetry at this time. states 'the doctor needs to find somebody else to practice on'
[2024-08-16] MEDS: IMODIUM PO (20:25)
[2024-08-16] MEDS: MYLICON PO (20:25)
[2024-08-16 21:44] LABS: Glucose - Point of Care 139 mg/dl (70-99)
[2024-08-16] MEDS: CRESTOR 40 MG PO (22:44)
[2024-08-16] MEDS: COZAAR 50 MG PO (22:45)
[2024-08-16] MEDS: NON-FORMULARY ITEM 3 MG PO (22:47)
[2024-08-17] VITALS (11 sets, daily range): BP systolic 111–161; BP diastolic 59–91; BMI 26.1
--- NOTE | 2024-08-17 00:57 | PTCARENOTE ---
Pt AAOx3, demonstrates mild L sided weakness d/t previous CVA with reported L sided vision impairment. Refused mylicon and imodium, pt reports 'I only take those if I need them and I don't need them right now.' Agreeable to take other scheduled
medications. Denies pain/discomfort at this time. Pt appears to be resting comfortably in bed. Call santos within reach.
--- NOTE | 2024-08-17 01:32 | PTCARENOTE ---
Addendum entered by Rachelle Ziegler 08/17/24 01:35:
Refuses intervention at this time
Original Note:
SaO2 periodically dropping as low as 79% with spontaneous recovery to 96% while sleeping.
[2024-08-17 05:32] LABS: % Basophils 0.5 % (0-2); % Eosinophils 1.4 % (0-6); % Immature Granulocytes 0.5 % (0-0.5); % Monocytes 11.6 % (1.7-9.3); Absolute Eosinophils 0.1 10^3/uL (0-0.7); Absolute Lymphocytes 1.7 10^3/uL (1.2-3.4); Absolute Neutrophils 5.6 10^3/uL (1.4-6.5); Hematocrit 33.3 % (39.0-52.0); Hemoglobin 10.6 g/dL (13.0-18.0); Mean Corp Hgb Conc. 31.8 g/dL (33.0-37.0); Mean Corpuscular Hgb 27.3 pg (27.0-31.0); Mean Corpuscular Volume 85.8 fL (80.0-94.0); Mean Platelet Volume 10.4 fL (7.4-10.4); Nucleated Red Blood Cells % 0 % (-); Platelet Count 333 10^3/uL (130-400); Red Blood Cell Count 3.88 10^6/uL (4.70-6.10); Red Cell Dist. Width 14.6 % (11.5-14.5); White Blood Cell Count 8.4 10^3/uL (4.8-10.8)
[2024-08-17 05:46] LABS: Blood Urea Nitrogen 31 mg/dl (9-20); Calcium 8.9 mg/dl (8.4-10.2); Carbon Dioxide 20 mmol/L (22-30); Chloride 106 mmol/L (98-107); Estimated Creatinine Clearance 37 ml/min; Glucose 117 mg/dl (70-99); Potassium 4.1 mmol/L (3.5-5.1); Sodium 140 mmol/L (135-145); eGFR 43.29
[2024-08-17 08:36] LABS: Glucose - Point of Care 133 mg/dl (70-99)
[2024-08-17] MEDS: NOVOLOG FLEXPEN-LOW RESISTANCE SC (08:42)
[2024-08-17] MEDS: IMODIUM 2 MG PO (08:47)
[2024-08-17] MEDS: ELIQUIS 2.5 MG PO (08:47)
[2024-08-17] MEDS: LASIX 20 MG PO (08:47)
[2024-08-17] MEDS: PACERONE 200 MG PO (08:50)
[2024-08-17] MEDS: TOPROL XL 25 MG PO (08:50)
[2024-08-17] MEDS: MYLICON 80 MG PO (08:51)
[2024-08-17] MEDS: NOVOLOG MIX 70/30 FLEXPEN 5 UNITS SC ×2 (08:52→12:35)
[2024-08-17] MEDS: TYLENOL 1000 MG PO (08:56)
--- NOTE | 2024-08-17 10:07 | W.PN.CD ---
Today's Communication / Plan
-
creatinine 1.6 down a littel from yesterday/. Continue diuretic.
If Creatinine less than 1.5 then would transition back to Eliquis 5mg BID
will review timign of DC with primary team
Impression / Plan
-
Acute HFrEF
-lower than prior dry weight
-sxs of cough and abdominal fullness are improving
-case mgmt consulted for entresto and SGLT2i; patient has expressed concerns regarding cost. It appears the costs are between $100 and $4850 per month for these medications which is too expensive. Based on cost we will continue with ARB
and diuretic
-transitoned to oral diuretic. ambulate
ICM:
-08/13/24 Echo EF 40-45,Basal inferior/inferoseptal hypokinesis. Stage I diastolic dysfunction suggestive of abnormal relaxation.Mild/moderate
eccentric aortic regurgitation.
-patient is on BB and ARB
HTN:
-severe on admit: improved with diuresis
-cont Toprol XL 25mg daily, losartan 50mg daily
CAD s/p CABG:
-stable without CP
-not on ASA since on eliquis for A fib
PAF:
-h/o CVA
-stable in SR
-on amiodarone. Required IV amio bolus for breakthrough early in admit
-continue Eliquis: will need to see where Cr settles out for final dosing prior to d/c
Subjective
Cough improved. No complaints of shortness of breath no edema creatinine1.6
Physical Exam
Vital Signs/Labs
Vital Signs
Temp Pulse Resp BP Pulse Ox
98.2 F 67 20 150/91 97
08/17/24 07:55 08/17/24 08:50 08/16/24 16:00 08/17/24 08:50 08/17/24 06:00
08/16/24 08/17/24 08/18/24
06:59 06:59 06:59
Actual Weight 80.3 kg 80.2 kg
08/17/24 05:08
08/17/24 05:08
Magnesium 1.9 mg/dl (1.6-2.3) 08/14/24 04:37
Triglycerides 120 mg/dl (10-149) 08/14/24 04:37
LDL Cholesterol, Calc 81 mg/dl 08/14/24 04:37
VLDL Cholesterol, Calc 24 mg/dl (0-30) 08/14/24 04:37
HDL Cholesterol 55 mg/dl 08/14/24 04:37
Free T4 1.48 ng/dl (0.78-2.19) 08/14/24 04:37
08/13/24
11:06
Whd-X-Dzgoczkpotb Pept 2550
Physical Exam
Constitutional: No acute distress
Cardiovascular: Rhythm & rate is regular
Respiratory: Wheeze Absent and Rhonchi Absent
GI: Non tender and Normal bowel sounds
Neuro/Psych: Alert and Oriented
Data Reviewed
-
Date of Service: August 17, 2024
Medical Decision Making: Reviewed Test Results
Medical Tests (PFT, Pathology etc): Report Reviewed by me
Labs: Labs Reviewed by me
[2024-08-17 12:17] LABS: NT-proBNP 875 pg/ml
[2024-08-17 12:29] LABS: Glucose - Point of Care 267 mg/dl (70-99)
--- NOTE | 2024-08-17 12:34 | W.PN.HOSP.TC ---
Addendum entered and electronically signed by David Escobedo MD 08/17/24 16:24:
Time of discharge 38 minutes
Original Note:
Today's Communication/Plan
-
monitor vitals
see plan
cw lasix
monitor renal function closely
Assessment / Plan
Assessment / Plan
Gen-AAOx3, NAD
HEENT-NC, AT, anicteric, clear oral mm
Neck-supple
CV-reg, no M, +S1/S2
Lungs-clear B/L
Abd-soft, NT, ND
Ext-no edema
Musculoskeletal-no cyanosis, clubbing
Skin-warm and dry
Neuro-grossly non-focal
Psych-calm, cooperative
Hypertensive emergency/essential hypertension -emergency resolved. Blood pressure improving. Presentation with acute heart failure, pulmonary edema.
He is on metoprolol and losartan at home.
Acute on chronic heart failure with midrange EF exacerbation -was on IV Lasix. Not on diuretics at home. now on PO lasix. Cardiology following. Known history of ischemic cardiomyopathy.
Echocardiogram shows LVEF 40 to 45%, basal inferior/inferior septal hypokinesis, stage I diastolic dysfunction, mild/moderate eccentric AR.
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
CAD/CABG
Paroxysmal atrial fibrillation -continue amiodarone, Eliquis.
Lung adenocarcinoma -currently on Lumakras.
DM2 without hyperglycemia -hemoglobin A1c 6.9%. On Humulin 70/30 at home.
BPH -with bladder outlet obstruction. Patient intolerant of tamsulosin, states that it keeps him urinating all night long. Recommend following up after discharge with his urologist. Discussed with patient implications of urinary retention
including worsening renal function.
CKD 3a
cr 1.6 today;; lasix made PO. monitor creatinine
Hyperlipidemia -on rosuvastatin.
Chronic normocytic anemia -hemoglobin near baseline.
Hyperthyroidism -on methimazole.
History of hemorrhagic stroke
COPD without exacerbation
Obstructive sleep apnea -intolerant of CPAP. Gets hypoxic at nighttime, at least needs home oxygen nocturnally on discharge. check nocturnal O2. patient refused. patient will f/u with his pcp outpatient
DNR
Anticipated Discharge: Within 24 hours
Subjective/Interval History
-
Date of Service: August 17, 2024
denies pain
Objective Data
-
Labs:
Laboratory Results
08/17/24
05:08
WBC 8.4
Hgb 10.6 L
Hct 33.3 L
Plt Count 333
Sodium 140
Potassium 4.1
Chloride 106
Carbon Dioxide 20 L
BUN 31 H
Creatinine 1.6 H
Glucose 117 H
Calcium 8.9
Vital Signs:
Vital Signs
Temp Pulse Resp BP Pulse Ox
98.3 F 55 20 114/81 98
08/17/24 11:41 08/17/24 12:00 08/16/24 16:00 08/17/24 10:00 08/17/24 10:00
I&O
08/16/24 08/17/24 08/18/24
06:59 06:59 06:59
Intake Total 960 / 960
Output Total 1075 / 1075 825 / 825 250 / 250
Balance -1075 / -1075 135 / 135 -250 / -250
[2024-08-17] MEDS: NOVOLOG FLEXPEN-LOW RESISTANCE 3 UNITS SC (12:36)
--- NOTE | 2024-08-17 16:24 | W.DCSUMMARY ---
Discharge Summary
Discharge Data
Date of Admission: 08/13/24
Date of Discharge: 08/17/24
-
Pending Results: No
Hospital Course
79-year-old male with past medical history of ischemic cardiomyopathy, hypertension, CAD status post CABG, paroxysmal atrial fibrillation, CKD, anemia, hyperlipidemia, hypothyroidism, history of hemorrhagic stroke, COPD, obstructive sleep apnea came
to the hospital with hypertensive emergency with acute congestive heart failure exacerbation. Patient was initially on IV Lasix which improved his symptoms and later he was transitioned to oral Lasix prior to discharge. He was seen by cardiology
throughout hospitalization. His Eliquis was adjusted based on his renal function this hospitalization. Once his symptoms continue to improve, he was then discharged home with instructions to follow-up with all his physicians outpatient.
Discharge Plan
-
Patient Disposition: Home (Routine Discharge)
Discharge Diagnosis/Procedures: Acute on chronic congestive heart failure with reduced ejection fraction
Paroxysmal atrial fibrillation
Hypertensive emergency
Diet: As tolerated and Diabetic, Carb Controlled
Activity: As tolerated
Driving Restrictions: As prior to admission
Bathing Restrictions: None
Blood Work: BMP next week with PCP or cardiology
Instructions: *CBC Heart Failure Instructions
Referrals:
Marlo Robb MD [Active] - in one week
Rachelle Taylor MD [Family Provider] - in less than 1 week
Prescriptions:
New
Eliquis 2.5 mg Tablet
2.5 mg PO BID Qty: 60 0RF
loperamide 2 mg Capsule
2 mg PO BID PRN (Reason: loose stool) Qty: 30 0RF
furosemide 20 mg Tablet
20 mg PO DAILY Qty: 30 0RF
simethicone 80 mg Tablet,Chewable
80 mg PO BID Qty: 14 0RF
Continued
rosuvastatin [Crestor] 40 MG tablet
40 mg PO HS
metoprolol succinate 25 mg Tablet Extended Release 24 Hr
25 mg PO DAILY
losartan 50 mg Tablet
50 mg PO HS
acetaminophen [Tylenol] 325 mg Tablet
975 mg PO BIDPRN PRN (Reason: mild pain)
ondansetron 4 mg Tablet,Disintegrating
4 mg PO Q8H PRN (Reason: nausea/vomiting)
Humulin 70/30 U-100 KwikPen 100 unit/mL (70-30) insulin pen
0 unit SC AC
Patient Comments:
02/22/2024, pt. uses this med. on a sliding scale but does not know what that sliding scale is; per pt., when he injects 10 units, his BS decreases by 100.
Lumakras 320 mg Tablet
960 mg PO HS
cyanocobalamin (vitamin B-12) tablet
1 tab PO DAILY
amiodarone 200 mg tablet
200 mg PO DAILY Qty: 30 2RF
omeprazole 20 mg Tablet,Delayed Release (Dr/Ec)
20 mg PO DAILY PRN (Reason: heart burn)
methimazole 5 mg tablet
5 mg PO QMWF
Discontinued
Eliquis 5 MG tablet
5 mg PO BID Qty: 180 0RF
Discharge Orders:
Discharge Patient (As Directed); Ordered 08/17/24
Ordered By: David Escobedo
Discharge Date and Time
Discharge Date/Time: 08/17/24 17:00
Print Language: AZERI
--- NOTE | 2024-08-17 16:53 | CM ---
Patient with Dx Hypertensive emergency, HF. PT/OT recommend HH.
Met with patient who was preparing for discharge.
Offered patient VN again for PT/OT and he declined saying he did not need help with his mobility.
The patient says he feels ready for discharge home today. IMM completed.
His was at the bedside and will provide a ride home.
No CM d/c needs identified.
Plan home today.
--- NOTE | 2024-08-17 17:36 | PTCARENOTE ---
Patient came back to hospital to get his medications from home. Handed to his partner.
--- NOTE | 2024-08-18 09:22 | W.HF.CON ---
Heart Failure
- LV Function
Left ventricular function study result: LV Ejection fraction >40%
Ejection Fraction Percentage: 40-45
- ARNI
Patient already on ARNI: No
Heart Failure ARNI Not Indicated: LV Ejection Fraction >/= 40%
- ACEI/ARB
Patient already on ACEI/ARB: Yes
- Beta Camryn
Patient already on Evidence Based Beta Camryn: Yes
- Mineralocorticord Receptor Antagonist
Patient already on MRA: No
Heart Failure MRA Not Indicated: LV Ejection Fraction > 40%
- SGLT-2 Inhibitor
Patient already on SGLT-2 Inhibitor: No
Heart Failure SGLT-2 Inhibitor Contraindication: Patient Refusal
- Afib Anticoagulation
Patient already on Anticoagulation for Afib: Yes
- NYHA CHF Classification
NYHA CHF Classification Level: Class III - Symptoms w/ min exertion, interferes w/ nml daily activity
- ACC/AHA Stage
ACC/AHA Stage: Stage C: Symptomatic Heart Failure
== END 2024-08-17 17:00 | disposition home or self-care (01) | DRG 291 ==
LOC: IMU 12:43
PROVIDERS: Nurse Practitioner Family; Registered Nurse; ADMITTING PHYSICIAN Hospitalist; ATTENDING PHYSICIAN Internal Medicine; CONSULT PHYSICIAN Internal Medicine; EMERGENCY PHYSICIAN Emergency Medicine; FAMILY PHYSICIAN Family Medicine
DX: I13.0 Hypertensive heart and chronic kidney disease with heart failure and stage 1 through stage 4 chronic kidney disease, or unspecified chronic kidney disease (principal); I50.23 Acute on chronic systolic (congestive) heart failure; I16.1 Hypertensive emergency; C34.90 Malignant neoplasm of unspecified part of unspecified bronchus or lung; D63.1 Anemia in chronic kidney disease; E11.22 Type 2 diabetes mellitus with diabetic chronic kidney disease; E11.40 Type 2 diabetes mellitus with diabetic neuropathy, unspecified; J44.9 Chronic obstructive pulmonary disease, unspecified; N18.32 Chronic kidney disease, stage 3b; E03.9 Hypothyroidism, unspecified; E05.90 Thyrotoxicosis, unspecified without thyrotoxic crisis or storm; Z95.1 Presence of aortocoronary bypass graft; Z66 Do not resuscitate; I48.0 Paroxysmal atrial fibrillation; I25.5 Ischemic cardiomyopathy; I25.10 Atherosclerotic heart disease of native coronary artery without angina pectoris; Z86.73 Personal history of transient ischemic attack (TIA), and cerebral infarction without residual deficits; E78.00 Pure hypercholesterolemia, unspecified; G47.33 Obstructive sleep apnea (adult) (pediatric); K21.9 Gastro-esophageal reflux disease without esophagitis; N40.0 Benign prostatic hyperplasia without lower urinary tract symptoms; Z91.199 Patient's noncompliance with other medical treatment and regimen due to unspecified reason; Z79.4 Long term (current) use of insulin; Z79.899 Other long term (current) drug therapy; Z87.891 Personal history of nicotine dependence; Z82.49 Family history of ischemic heart disease and other diseases of the circulatory system
CPT/HCPCS: 71045; 80048; 80053; 80061; 82248; 82962; 83036; 83735; 83880; 84439; 84443; 85025; 93005; 93306; 93356; 96365; 96366; 96375; 97162; 97166; 99291

== ENCOUNTER → 2025-03-17 07:18 | Emergency (ER) | payer MEDICARE, OTHER, SELFPAY ==
[2025-03-17 07:24] VITALS: BP 195/92; BP 200/95
[2025-03-17 07:28] VITALS: BP 195/92
--- NOTE | 2025-03-17 07:32 | ED.GENMED ---
History of Present Illness
General
Chief Complaint: Breathing Problem
Source: patient
Exam Limitations: none
Time Seen by Provider: 03/17/25 07:22
Nursing documentation reviewed up to this point in time: agreed with
History of Present Illness
History of Present Illness:
Patient is an 79-year-old male with COPD, currently being treated for lung cancer by Dr. Keane presents to the ER for evaluation. He reports he woke up around 3 AM with a coughing fit and was short of breath and called EMS. EMS gave patient a
DuoNeb but he does feel better. He denies any recent illness fever chills. He lives at home with his girlfriend. He denies any associated chest pain. Patient other than coughing fit and shortness of breath that started 3 AM patient has not been
short of breath. He denies any dyspnea on exertion or orthopnea. He denies any lower extremity swelling. He does have a history of A-fib and is on Eliquis 2.5 mg twice a day and has not missed a dose. In addition he is on Lasix and has been
taking as previously prescribed. 20 mg daily.
Past History
Past History
ED Past Medical History: Arrthythmia (Atrial fib), CAD, COPD, CVA (Left side weakness), GERD, HTN, Hypercholesterolemia, NIDDM, [place] and Other (CPAP for sleep apnea, sleep apnea)
ED Past Surgical History: Appendectomy, Cardiac (CABG), Cholecystectomy, Orthopedic (right knee, Left elbow) and Other (Cataracts)
Patient has exhibited threatening behavior?: No
PSI?: No
Social History
Tobacco: Former smoker
Alcohol: Occasional
Drug: None
Personal:
Living: assisted living
Review of Systems
Review of Systems
Allergies reviewed?: Yes
All Other Systems: ROS reviewed and negative except as documented in HPI and ROS
Constitutional: Reports no symptoms; Denies fever, fatigue or chills
EENT: Reports no symptoms
Respiratory: Reports cough and trouble breathing
Cardiac: Reports no symptoms
ABD/GI: Reports no symptoms
: Reports no symptoms
Musculoskeletal: Reports no symptoms
Skin: Reports no symptoms
Neurological: Reports no symptoms
Psychiatric: Reports no symptoms
Phy Exam
General Physical Exam
General Presentation: no apparent distress
General age: appears stated age
General Skin: warm and dry
General Habitus: normal
General Mental: alert
General Hydration: appears well hydrated
Cardiovascular Exam
Cardiovascular Exam: regular rate/rhythm, no murmur and normal peripheral pulses
Pulmonary Exam
Pulmonary Exam: other (wheezing right base )
Neurological Exam
Neurological Exam: alert and oriented x3
Musculoskeletal Exam
Musculoskeletal Exam: full ROM and other ( no le swelling )
Skin Exam
Skin Exam: normal color and warm/dry
Psychiatric Exam
Psychiatric Exam: normal mood/affect
Scores
Heart Failure Risk
Heart Failure Risk Score: Not Applicable
Course
Orders/Labs/Results
Orders:
Orders
03/17/25 07:33
IV Insert/Care/Rem.- Treatment PRN
Dexamethasone Sod Phosphate [Decadron] 10 mg IV NOW STA
03/17/25 07:34
Electrocardiogram (*1) Stat
Reason for Study: Other
Other Reason for Exam: chest pain
Cardiac Monitoring- Treatment ONCE
EKG- Treatment ONCE
Albuterol Nebs [Ventolin Nebules] 2.5 mg INH R NOW STA
CR Chest - 2 Views Urgent
Comment:
Reason For Exam: sob/cough
03/17/25 07:36
Complete Blood Count/With Diff Urgent
Comprehensive Metabolic Panel Urgent
NT-proBNP Urgent
Comment: ADD ON
03/17/25 09:22
Add On- LAB Urgent
Tests Added?: cardiac bnp
Abnormal Lab Results
03/17/25
07:36
RBC 3.48 L 10^6/uL
(4.70-6.10)
Hgb 10.0 L g/dL
(13.0-18.0)
Hct 32.0 L %
(39.0-52.0)
MCHC 31.3 L g/dL
(33.0-37.0)
RDW 15.2 H %
(11.5-14.5)
Absolute Monos (auto) 1.0 H 10^3/uL
(0.1-0.6)
Monocytes % 11.7 H %
(1.7-9.3)
Chloride 113 H mmol/L
(98-107)
Carbon Dioxide 21 L mmol/L
(22-30)
BUN 24 H mg/dl
(9-20)
Creatinine 1.4 H mg/dL
(0.7-1.3)
Glucose 110 H mg/dl
(70-99)
Total Protein 6.0 L g/dl
(6.3-8.2)
03/17/25 07:36
03/17/25 07:36
Vital Signs
Initial and Last Documented VS:
Initial Vital Signs
Pulse Resp
80 18
03/17/25 07:23 03/17/25 07:23
Last Documented Vital Signs
Temp Pulse Resp BP Pulse Ox
97.6 F 64 12 187/86 93
03/17/25 07:24 03/17/25 08:15 03/17/25 08:15 03/17/25 08:00 03/17/25 08:15
Car Varnisher consulted with Physician
Car Varnisher consulted with physician?: Yes
Name of Physician Consulted: Noh
MDM/Problems Addressed
Differential Diagnosis Includes:
Not limited to COPD exacerbation, CHF less likely ACS
MDM/Problems Addressed:
.As documented patient is an 79-year-old male who woke up at 3 AM with a coughing fit and then had shortness of breath. Pt had no cp.
Patient was given a neb en route and by the time he was here he felt much better. He denies any lower extremity swelling or increasing shortness of breath. He denies any recent orthopnea or dyspnea on exertion. He denies any associated chest
pain. He is awake alert no acute distress I did order a second treatment along with steroids as he had very minimal scattered expiratory wheeze on the right however he does not want to take the steroids. He reports he is feeling much better. He
denies any fevers and fever chills and has a normal white count, and his hemoglobin is stable at 10, his kidney function is baseine.
He had no chest pain no acute findings and EKG.
Case reviewed with Dr. Watkins, cardiac BNP was added on which is elevated at 3760 chest x-ray shows pulmonary interstitial markings at least top normal cannot exclude some chronic residual changes versus minimal interstitial edema. No obvious lower
extremity swelling. Patient ambulated and is no acute distress feeling much better now wants to go home he is stable for discharge home and as discussed with ED physician will DC on Lasix with instructions to increase from 20 mg a day to 40 mg for
the next few days for close outpatient follow with cardiology
Chronic conditions affecting care:
A-fib on Eliquis COPD history of lung cancer
*Radiology
Radiology exam reviewed: radiology read reviewed
*Pulse Oximetry
Patient hypoxic: no
*EKG
Interpreted by ED Provider?: Yes
Heart Rate: 70
Rate: normal
Rhythm: sinus
Ischemia: non-specific ST changes
*Critical Care Note
Total Time (30-74mins, 75-104mins- exclusive of procedures): Not Applicable
Data Reviewed
Review of Other/Old Records Reveals: Labs
ED Attending Note
-
Portions of this chart may have been created with voice recognition software.� Occasional wrong word or��sound alike� substitutions may have occurred due to the inherent limitations of voice recognition software.
Discharge Plan
Departure
Patient Disposition: Home (Routine Discharge)
Date of Disposition: 03/17/25
Time of Disposition: 11:03
Patient with high blood pressure during this ER visit?: Yes
Condition: Fair
Covid-19: Not Applicable
Discharge Problem:
Mild congestive heart failure, Acute dyspnea
Instructions: *CBC Heart Failure Instructions, BLOOD PRESSURE
Prescriptions:
No Action
rosuvastatin [Crestor] 40 MG tablet
40 mg PO HS
metoprolol succinate 25 mg Tablet Extended Release 24 Hr
25 mg PO DAILY
losartan 50 mg Tablet
50 mg PO HS
acetaminophen [Tylenol] 325 mg Tablet
975 mg PO BIDPRN PRN (Reason: mild pain)
ondansetron 4 mg Tablet,Disintegrating
4 mg PO Q8H PRN (Reason: nausea/vomiting)
Humulin 70/30 U-100 KwikPen 100 unit/mL (70-30) insulin pen
0 unit SC AC
Patient Comments:
02/22/2024, pt. uses this med. on a sliding scale but does not know what that sliding scale is; per pt., when he injects 10 units, his BS decreases by 100.
Lumakras 320 mg Tablet
960 mg PO HS
cyanocobalamin (vitamin B-12) tablet
1 tab PO DAILY
amiodarone 200 mg tablet
200 mg PO DAILY Qty: 30 2RF
omeprazole 20 mg Tablet,Delayed Release (Dr/Ec)
20 mg PO DAILY PRN (Reason: heart burn)
methimazole 5 mg tablet
5 mg PO QMWF
Eliquis 2.5 mg Tablet
2.5 mg PO BID Qty: 60 0RF
loperamide 2 mg Capsule
2 mg PO BID PRN (Reason: loose stool) Qty: 30 0RF
furosemide 20 mg Tablet
20 mg PO DAILY Qty: 30 0RF
simethicone 80 mg Tablet,Chewable
80 mg PO BID Qty: 14 0RF
Referrals:
Lanette Tomlin DO [Family Provider] -
Rafy Morrow MD [Active] -
Activity Restrictions/Additional Instructions:
As discussed please increase your Lasix from 20 mg Lasix to 40 mg daily for the next 3 days. Please call your hearing therapy director today to make an appointment as soon as possible for reevaluation of symptoms. reTurn if any worsening of symptoms.
Interventions
Interventions:
*Risk Screen - Suicide Last Done: 03/17/25 07:24
*General Assessment Last Done: 03/17/25 07:30
*Neglect/Abuse Screening Last Done: 03/17/25 07:30
*ED COVID-19 Vaccine History Last Done: 03/17/25 07:34
ED- Cardiac Assessment Last Done: 03/17/25 07:30
ED- Pulmonary Assessment Last Done: 03/17/25 07:30
Discharge Date and Time
Print Language: PASHTO
[2025-03-17 07:34] VITALS: BMI 29.6
[2025-03-17 07:43] LABS: % Basophils 0.2 % (0-2); % Eosinophils 1.3 % (0-6); % Immature Granulocytes 0.2 % (0-0.5); % Lymphocytes 24.1 % (20.5-51.1); % Monocytes 11.7 % (1.7-9.3); % Neutrophils 62.5 % (42.2-75.2); Absolute Eosinophils 0.1 10^3/uL (0-0.7); Absolute Neutrophils 5.1 10^3/uL (1.4-6.5); Mean Corp Hgb Conc. 31.3 g/dL (33.0-37.0); Mean Corpuscular Hgb 28.7 pg (27.0-31.0); Nucleated Red Blood Cells % 0 % (-); Platelet Count 281 10^3/uL (130-400); Red Blood Cell Count 3.48 10^6/uL (4.70-6.10); Red Cell Dist. Width 15.2 % (11.5-14.5); White Blood Cell Count 8.2 10^3/uL (4.8-10.8)
[2025-03-17 07:56] LABS: ALT (SGPT) 14 U/L (0-50); AST (SGOT) 21 U/L (17-59); Albumin 3.6 g/dl (3.5-5.0); Alkaline Phosphatase 84 U/L (38-126); Blood Urea Nitrogen 24 mg/dl (9-20); Calcium 8.7 mg/dl (8.4-10.2); Carbon Dioxide 21 mmol/L (22-30); Chloride 113 mmol/L (98-107); Estimated Creatinine Clearance 42 ml/min; Glucose 110 mg/dl (70-99); Potassium 4.3 mmol/L (3.5-5.1); Sodium 142 mmol/L (135-145); Total Bilirubin 0.5 mg/dl (0.2-1.3); eGFR 50.81
[2025-03-17] MEDS: VENTOLIN NEBULES 2.5 MG INH (07:56)
[2025-03-17 08:00] VITALS: BP 187/86
[2025-03-17 09:11] VITALS: BP 178/82
[2025-03-17 10:50] LABS: NT-proBNP 3760 pg/ml
[2025-03-17 11:10] VITALS: BP 182/83
== END | disposition home or self-care (01) ==
LOC: EMR 07:18
PROVIDERS: Nurse Practitioner; EMERGENCY PHYSICIAN Emergency Medicine; FAMILY PHYSICIAN Family Medicine
DX: I11.0 Hypertensive heart disease with heart failure (principal); I50.9 Heart failure, unspecified; R06.00 Dyspnea, unspecified; C34.90 Malignant neoplasm of unspecified part of unspecified bronchus or lung; J44.9 Chronic obstructive pulmonary disease, unspecified; E11.9 Type 2 diabetes mellitus without complications; E78.00 Pure hypercholesterolemia, unspecified; G47.30 Sleep apnea, unspecified; I25.10 Atherosclerotic heart disease of native coronary artery without angina pectoris; I48.91 Unspecified atrial fibrillation; Z79.01 Long term (current) use of anticoagulants; I69.954 Hemiplegia and hemiparesis following unspecified cerebrovascular disease affecting left non-dominant side; Z95.1 Presence of aortocoronary bypass graft; Z90.49 Acquired absence of other specified parts of digestive tract; Z87.891 Personal history of nicotine dependence
CPT/HCPCS: 94640; 96374; 99285; 71046; 80053; 83880; 85025; 93005

== ENCOUNTER → 2025-06-01 12:59 | Outpatient (REF) | payer MEDICARE, OTHER, SELFPAY | LOC: HWRAD 12:59 | PROVIDERS: ATTENDING PHYSICIAN Internal Medicine Hematology & Oncology; FAMILY PHYSICIAN Family Medicine | DX: C34.31 Malignant neoplasm of lower lobe, right bronchus or lung (principal); R79.9 Abnormal finding of blood chemistry, unspecified; E03.9 Hypothyroidism, unspecified; D64.9 Anemia, unspecified | CPT/HCPCS: 71250 ==

== ENCOUNTER 2025-06-25 22:07 | Inpatient (IN) | payer MEDICARE, OTHER, SELFPAY ==
[2025-06-25] VITALS (7 sets, daily range): BP systolic 136–181; BP diastolic 60–71
[2025-06-25 20:00] LABS: Hematocrit 30.1 % (39.0-52.0); Hemoglobin 9.4 g/dL (13.0-18.0); Mean Corp Hgb Conc. 31.2 g/dL (33.0-37.0); Mean Corpuscular Volume 89.6 fL (80.0-94.0); Nucleated Red Blood Cells % 0 % (-); Platelet Count 262 10^3/uL (130-400); Red Cell Dist. Width 15.7 % (11.5-14.5)
[2025-06-25 20:06] LABS: APTT 27.2 Sec (23.4-35.0); INR 1.07; PT 14.2 Sec (11.4-14.6)
[2025-06-25 20:15] LABS: ALT (SGPT) 17 U/L (0-50); AST (SGOT) 24 U/L (17-59); Albumin 4.0 g/dl (3.5-5.0); Alkaline Phosphatase 74 U/L (38-126); Blood Urea Nitrogen 20 mg/dl (9-20); Calcium 8.5 mg/dl (8.4-10.2); Carbon Dioxide 15 mmol/L (22-30); Chloride 112 mmol/L (98-107); Estimated Creatinine Clearance 41 ml/min; Glucose 68 mg/dl (70-99); Potassium 4.7 mmol/L (3.5-5.1); Sodium 138 mmol/L (135-145); Total Protein 6.3 g/dl (6.3-8.2); eGFR 43.29
[2025-06-25 20:26] LABS: Troponin I < 0.012 ng/ml
[2025-06-25 20:46] LABS: TSH 26.60 uIU/ml (0.47-4.68)
--- NOTE | 2025-06-25 21:27 | ED.GENMED ---
History of Present Illness
General
Chief Complaint: Seizure
Source: patient
Exam Limitations: none
Time Seen by Provider: 06/25/25 19:22
Nursing documentation reviewed up to this point in time: agreed with
History of Present Illness
History of Present Illness:
Note:
CHIEF COMPLAINT(S)
Seizure
HISTORY OF PRESENT ILLNESS
The patient is an 79-year-old male with a history of stage IV lung cancer who experienced a seizure today. The patient was at a community gathering at [facility] when he became unresponsive, and chest compressions were initiated for
approximately two minutes. He regained consciousness later at the medical facility. The patients blood pressure was reportedly low yesterday, though it has since stabilized. He has an abrasion on his left elbow. The patient described not feeling
well this morning with a sense of neurological disturbance. He also reported right chest wall/upper abdominal pain. No significant recall of the event was noted by the patient.
PAST MEDICAL AND SURGICAL HISTORY
The patient has a history of stage IV lung cancer.
PHYSICAL EXAM
General: Alert, no acute distress.
Skin: Abrasion to the left elbow, approximately one centimeter.
Head: Normocephalic, atraumatic. CT scan performed.
Neck: Supple, trachea midline.
Eye Ears, nose, mouth and throat: Oral mucosa moist.
Cardiovascular: Normal peripheral perfusion, No edema. Pulse is excellent.
Respiratory: Respirations are non-labored.
Gastrointestinal: Tenderness in the right abdomen.
Back: Normal range of motion, Normal alignment.
Musculoskeletal: Normal ROM, normal strength.
Neurological: Alert and oriented to person, place, time, and situation, No focal neurological deficit observed.
Psychiatric: Cooperative, appropriate mood & affect.
PROBLEM LIST
Acute:
- Seizure
- Abrasion to the left elbow
- Right abdominal pain
Chronic:
- Stage IV lung cancer
PLAN
The patient will undergo additional testing and will be admitted to the hospital for further evaluation and management.
DIFFERENTIAL DIAGNOSIS
The Differential Diagnosis includes, in no particular order and is not limited to:
- Seizure due to electrolyte imbalance
- Syncope
- Cardiac arrhythmia
- Hypoglycemia
- Neurologic event such as stroke or transient ischemic attack
- Recurrent cancer with metastasis to the brain (despite no current evidence of spread)
- Medication-related effects
- Metabolic encephalopathy
- Dehydration
- Infection/sepsis
Disposition:
SUMMARY OF ENCOUNTER
The patient, an 79-year-old male with a history of stage IV lung cancer, presented to the emergency department after experiencing a syncopal event and seizure at a community gathering. He received CPR from bystanders for approximately two minutes
before being transported to the hospital. Upon arrival, a CT scan of the head was conducted. The scan revealed subtle non-displaced fractures of the anterior lateral right fifth rib and laterally displaced fractures of the right sixth rib, as well
as a subtle fracture involving the right lateral seventh rib. No pneumothorax or retrosternal soft tissue attenuation or hematoma was noted. However, there was progression noted in the posterior right lobe neoplasm. Given the findings and the
patients clinical presentation, he is to be admitted for further evaluation and management.
DISPOSITION
Admit
ASSESSMENT
The patient experienced a seizure, possibly related to cardiac arrhythmia, electrolyte imbalance, or potential neurological or neoplastic progression affecting the brain.
PLAN
The patient will be admitted for further evaluation and management, involving potential discussions with neurology and oncology to assess underlying causes and review cancer status.
INDEPENDENT REVIEW OF LABS AND INTERPRETATION OF TESTS
- My independent interpretation of the CT scan reveals subtle non-displaced anterior lateral right fifth rib fractures, laterally displaced right sixth rib fractures, and a subtle fracture involving the right lateral seventh rib. No pneumothorax or
retrosternal soft tissue attenuation or hematoma was seen. There is noted anatomical progression of the posterior right lobe neoplasm.
MEDICAL DECISION MAKING
- Number and Complexity of Problems Addressed: Chronic conditions affecting care include stage IV lung cancer, seizure, and possible neoplastic progression. The differential diagnosis includes seizure due to electrolyte imbalance, syncope, cardiac
arrhythmia, neurological event such as stroke or transient ischemic attack, recurrent cancer with metastasis to the brain, medication-related effects, metabolic encephalopathy, dehydration, and infection/sepsis.
- Data:
Category 1
- Tests and documents reviewed include the CT scan, which was independently interpreted.
-Risk:
Decisions regarding diagnostic testing with risks, including CT imaging for further assessment of the underlying condition.
DIAGNOSIS
- Seizure (ICD-10: R56.9)
- Rib fracture (ICD-10: S22.42XA)
- Neoplasm of the lung (ICD-10: C34.90)
Past History
Past History
ED Past Medical History: Arrthythmia (Atrial fib), CAD, COPD, CVA (Left side weakness), GERD, HTN, Hypercholesterolemia, NIDDM, [place] and Other (CPAP for sleep apnea, sleep apnea)
ED Past Surgical History: Appendectomy, Cardiac (CABG), Cholecystectomy, Orthopedic (right knee, Left elbow) and Other (Cataracts)
Patient has exhibited threatening behavior?: No
PSI?: No
Social History
Tobacco: Former smoker
Alcohol: Occasional
Drug: None
Personal:
Living: assisted living
Review of Systems
Review of Systems
Allergies reviewed?: Yes
All Other Systems: ROS reviewed and negative except as documented in HPI and ROS
Phy Exam
General Physical Exam
General Presentation: well appearing and no apparent distress
General Skin: warm and dry
General Habitus: normal
General Mental: alert
General Hydration: appears well hydrated
ENT Exam
ENT Exam: EOMI, pharynx normal, neck supple and normocephalic
Eye Exam
Eye Exam: PERRL, cornea clear and conjunctiva normal
Cardiovascular Exam
Cardiovascular Exam: regular rate/rhythm, no edema, no murmur and normal peripheral pulses
Pulmonary Exam
Pulmonary Exam: lungs clear, no respiratory distress, no rales, no crackles, no rhonchi, no stridor, no wheezing and no cough
Gastrointestinal Exam
Gastrointestinal Exam: normal bowel sounds, non tender, soft, no organomegaly, no pulsatile mass and non distended
Neurological Exam
Neurological Exam: alert, oriented x3, no motor deficits and speech normal
Musculoskeletal Exam
Musculoskeletal Exam: full ROM, no edema and other (Tenderness to palpation right chest wall)
Skin Exam
Skin Exam: normal color, warm/dry, no rash and no petechia
Psychiatric Exam
Psychiatric Exam: normal mood/affect
Course
Orders/Labs/Results
Orders:
Orders
06/25/25 19:22
CT Head W/o Iv Contrast Urgent
Comment:
Reason For Exam: syncope and collapse, CPR
Cardiac Monitoring- Treatment ONCE
06/25/25 19:36
CT Chest W/o Iv Contrast Urgent
Comment:
Reason For Exam: syncope, s/p cpr
06/25/25 19:37
Complete Blood Count/With Diff Urgent
Comprehensive Metabolic Panel Urgent
PTT Urgent
Prothrombin Time Urgent
TSH Urgent
Troponin I Q3H
06/25/25 19:55
EKG [Electrocardiogram (*1)] Urgent
Reason for Study: Syncope
EKG- Treatment ONCE
06/25/25 22:30
Troponin I Q3H
Abnormal Lab Results
06/25/25
19:37
RBC 3.36 L 10^6/uL
(4.70-6.10)
Hgb 9.4 L g/dL
(13.0-18.0)
Hct 30.1 L %
(39.0-52.0)
MCHC 31.2 L g/dL
(33.0-37.0)
RDW 15.7 H %
(11.5-14.5)
Abs Immat Gran (auto) 0.1 H 10^3/uL
(0-0.05)
Absolute Neuts (auto) 7.8 H 10^3/uL
(1.4-6.5)
Absolute Lymphs (auto) 1.0 L 10^3/uL
(1.2-3.4)
Absolute Monos (auto) 0.9 H 10^3/uL
(0.1-0.6)
Immature Gran % 1.0 H %
(0-0.5)
Neutrophils % 78.6 H %
(42.2-75.2)
Lymphocytes % 10.4 L %
(20.5-51.1)
Chloride 112 H mmol/L
(98-107)
Carbon Dioxide 15 L mmol/L
(22-30)
Creatinine 1.6 H mg/dL
(0.7-1.3)
Glucose 68 L mg/dl
(70-99)
TSH 26.60 H uIU/ml
(0.47-4.68)
06/25/25 19:37
06/25/25 19:37
Vital Signs
Initial and Last Documented VS:
Initial Vital Signs
Temp Pulse Resp BP Pulse Ox
98 F 60 15 136/63 97
06/25/25 19:25 06/25/25 19:25 06/25/25 19:25 06/25/25 19:25 06/25/25 19:25
Last Documented Vital Signs
Temp Pulse Resp BP Pulse Ox
98 F 56 15 181/71 99
06/25/25 19:25 06/25/25 21:00 06/25/25 21:00 06/25/25 21:00 06/25/25 21:00
*Radiology
Radiology exam reviewed: radiology read reviewed
*Pulse Oximetry
SaO2: 99
Oxygen Mode of Delivery: Room air
Patient hypoxic: no
*Critical Care Note
Total Time (30-74mins, 75-104mins- exclusive of procedures): Not Applicable
ED Attending Note
-
Portions of this chart may have been created with voice recognition software.� Occasional wrong word or��sound alike� substitutions may have occurred due to the inherent limitations of voice recognition software.
Discharge Plan
Departure
Patient Disposition: Admit
Date of Disposition: 06/25/25
Time of Disposition: 21:30
Admit to: Telemetry
Presentation/result/management discussed w/ accepting MD/DO: Hospitalist
Discharge Problem:
Seizure, Syncope and collapse, Fracture, ribs, History of lung cancer, Bystander CPR
Prescriptions:
No Action
rosuvastatin [Crestor] 40 MG tablet
40 mg PO HS
metoprolol succinate 25 mg Tablet Extended Release 24 Hr
25 mg PO DAILY
losartan 50 mg Tablet
50 mg PO HS
acetaminophen [Tylenol] 325 mg Tablet
975 mg PO BIDPRN PRN (Reason: mild pain)
ondansetron 4 mg Tablet,Disintegrating
4 mg PO Q8H PRN (Reason: nausea/vomiting)
Humulin 70/30 U-100 KwikPen 100 unit/mL (70-30) insulin pen
0 unit SC AC
Patient Comments:
02/22/2024, pt. uses this med. on a sliding scale but does not know what that sliding scale is; per pt., when he injects 10 units, his BS decreases by 100.
Lumakras 320 mg Tablet
960 mg PO HS
cyanocobalamin (vitamin B-12) tablet
1 tab PO DAILY
amiodarone 200 mg tablet
200 mg PO DAILY Qty: 30 2RF
omeprazole 20 mg Tablet,Delayed Release (Dr/Ec)
20 mg PO DAILY PRN (Reason: heart burn)
methimazole 5 mg tablet
5 mg PO QMWF
Eliquis 2.5 mg Tablet
2.5 mg PO BID Qty: 60 0RF
loperamide 2 mg Capsule
2 mg PO BID PRN (Reason: loose stool) Qty: 30 0RF
furosemide 20 mg Tablet
20 mg PO DAILY Qty: 30 0RF
simethicone 80 mg Tablet,Chewable
80 mg PO BID Qty: 14 0RF
Referrals:
Anam Lemos MD [Family Provider, Family Practice]
Interventions
Interventions:
*Risk Screen - Suicide Last Done: 06/25/25 19:25
*General Assessment Last Done: 06/25/25 19:25
*Neglect/Abuse Screening Last Done: 06/25/25 19:25
*ED- Fall Risk Assessment Last Done: 06/25/25 19:25
*ED COVID-19 Vaccine History Last Done: 06/25/25 19:25
ED- Cardiac Assessment Last Done: 06/25/25 19:25
ED- Neurological Assessment Last Done: 06/25/25 19:25
ED- Pulmonary Assessment Last Done: 06/25/25 19:25
Discharge Date and Time
Print Language: BELARUSIAN
--- NOTE | 2025-06-25 21:49 | HPS.HSE ---
Addendum entered and electronically signed by Jarvis Huang MD 06/25/25 22:23:
Correction:
79M HX Prx AF on Eliquis, chr HFrEF, HTN, Dyslipidemia, Hyperthyroid on methimazole seen at ER;
- witnessed Sz like episode followed by agonal breathing and turned blue
- Immediately 2 mins of CPR by bystanders
- upon EMS arrival, AED was placed - no shock was advised
- strong carotid pulse
- then woke up and confused
- patient was covered with vomitus on arrival
Per EMS girlfriend <del>spouse</del> HX Sz but girlfriend denied she told EMS about prior HX Sz
Original Note:
Family Physician
-
Family Physician: Anam Lemos
Chief Complaint
-
witnessed Sz like episode and bystander CPR
History of Present Illness
HPI
79M HX Prx AF on Eliquis, chr HFrEF, HTN, Dyslipidemia, Hyperthyroid on methimazole seen at ER;
- witnessed Sz like episode followed by agonal breathing and turned blue
- Immediately 2 mins of CPR by bystanders
- upon EMS arrival, AED was placed - no shock was advised
- strong carotid pulse
- then woke up and confused
- patient was covered with vomitus on arrival
Per spouse HX Sz
Medical History
Past Medical History
Past Medical History: Reports Other
Additional Past Medical History:
HLD
BPH
stage 3 kidney disease
htn
righ lung adenocarcinoma
hyperthyroidism
type 2 DM
MYKE
atrial fib
BPH
Past Surgical History: Reports Other
Additional Past Surgical History:
cholecystectomy
appendectomy
CABG x4
vasectomy
Social History
Tobacco: Former Smoker
Alcohol: Occasional
Drug: None
Personal:
Living: With Family
Family History
Family History: Not pertinent
Allergies / Home Medications
Allergies reflects when Allergies were last updated in [facility].
Home Medications with original date entered in [facility]
Allergy/Medication List:
Allergies
Allergy/AdvReac Type Severity Reaction Status Date / Time
tamsulosin [From Flomax] Allergy Unknown Verified 08/13/24 09:58
Home Medications
rosuvastatin 40 mg tablet (Crestor) 40 mg PO HS High cholesterol 05/21/21
apixaban 5 mg tablet (Eliquis) 5 mg PO BID #180 tabs 05/22/21
metoprolol succinate 25 mg tablet,extended release 24 hr 25 mg PO DAILY Blood pressure 06/13/22
losartan 50 mg tablet 50 mg PO HS Blood Pressure 12/29/23
acetaminophen 325 mg tablet (Tylenol) 975 mg PO BIDPRN PRN mild pain 02/22/24
cyanocobalamin (vitamin B-12) 1 tab PO DAILY Supplement 02/22/24
insulin NPH-regular 70-30 U-100 insulin 100 unit/mL subcutaneous pen (Humulin 70/30 U-100 KwikPen) 0 unit SC AC Diabetes 02/22/24
ondansetron 4 mg disintegrating tablet 4 mg PO Q8H PRN nausea/vomiting 02/22/24
sotorasib 320 mg tablet (Lumakras) 960 mg PO HS ANTINEOPLASTIC 02/22/24
amiodarone 200 mg tablet 200 mg PO DAILY #30 tabs 02/24/24
methimazole 5 mg tablet 5 mg PO QMWF 08/13/24
omeprazole 20 mg tablet,delayed release 20 mg PO DAILY PRN heart burn 08/13/24
Review of Systems
-
Constitutional: Reports No Symptoms
EENT: Reports No Symptoms
Respiratory: Reports Cough and Trouble Breathing
Cardiac: Reports No Symptoms
Abdomen/GI: Reports No Symptoms
: Reports No Symptoms
Musculoskeletal: Reports No Symptoms
Skin: Reports No Symptoms
Endocrine: Reports No Symptoms
Hematologic/Lymphatic: Reports See HPI
Psych: Reports No Symptoms
Physical Exam
Vital Signs
Vital Signs
Temp Pulse Resp BP Pulse Ox
98 F 56 15 181/71 99
06/25/25 19:25 06/25/25 21:00 06/25/25 21:00 06/25/25 21:00 06/25/25 21:31
Physical Exam
General: Well Developed, Well Nourished and No Apparent Distress
HEENT: NormoCephalic, Moist mucous membranes and Atraumatic
Respiratory: Rales
Cardiac: S1/S2 and Regular Rhythm; No Murmur or Rub
GI: Soft, Non Tender, Non Distended and Normal Bowel Sounds; No Organomegaly
Rectal: Deferred by Provider
Musculoskeletal: No Clubbing, No Cyanosis and No Edema
Skin: No Rash
Neuro: AO x 3 and Nonfocal/grossly intact
Psych: Calm
Laboratory Results
-
06/25/25 19:37
06/25/25 19:37
Laboratory Results
PT 14.2 Sec (11.4-14.6) 06/25/25 19:37
INR 1.07 06/25/25 19:37
APTT 27.2 Sec (23.4-35.0) 06/25/25 19:37
Total Bilirubin 0.3 mg/dl (0.2-1.3) 06/25/25 19:37
AST 24 U/L (17-59) 06/25/25 19:37
ALT 17 U/L (0-50) 06/25/25 19:37
Alkaline Phosphatase 74 U/L (38-126) 06/25/25 19:37
Troponin I < 0.012 ng/ml 06/25/25 19:37
Data Reviewed
-
Diagnostic Radiology: Report Reviewed by me
CT Scan: Report Reviewed by me
Medical Tests (Nuc Med, Echo, EKG etc): Report Reviewed by me
Lab Data: Labs Reviewed by me
Impression/Plan
-
Vital Signs
Temp Pulse Resp BP Pulse Ox
98 F 56 15 181/71 99
06/25/25 19:25 06/25/25 21:00 06/25/25 21:00 06/25/25 21:00 06/25/25 21:31
Laboratory Tests
08/17/24 03/17/25 06/25/25
05:08 07:36 19:37
Creatinine 1.6 H 1.4 H 1.6 H
eGFR 43.[address] Head W/o Iv Contrast
- Stable chronic findings. No acute intracranial abnormality identified. Specifically, no acute intracranial hemorrhage.
CT Chest W/o Iv Contrast
- Subtle nondisplaced anterolateral right fifth rib fracture and lateral nondisplaced right sixth rib fracture subtle fracture also suggested involving the lateral right seventh rib.
- No retrosternal soft tissue attenuation or hematoma.
- No pneumothorax.
- Anatomic progression of posterior right lower lobe neoplasm.
- Small sliding hiatal hernia.
Pending admission EKG
08/13/24 TTE
LVEF 40-45%
Basal inferior/inferoseptal hypokinesis.
Stage I diastolic dysfunction
Last hospitalist admission: Date of Admission: 08/13/24 - Date of Discharge: 08/17/24
Acute on chronic congestive heart failure with reduced ejection fraction
Paroxysmal atrial fibrillation
Hypertensive emergency
ASSESSMENT & PLAN
Pending Rx reconciliation
Witnessed Sz complicated with fall subtle anterolateral 5,6,7 rib Fxs
Associated post ictal confusion
HX Sz per spouse by patient denied Sz
- EEG in an
- not on any AED( anti epileptic drugs ) per list
Traumatic Rib fx. s/p fall
R 5th rib fx. subtle nondisplaced anterolateral fx.
R 6th sixth rib fx. lateral nondisplaced fx.
R 7th rib fx. subtle fracture lateral rib fx
- Local pain control with Lidoderm patach
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
- on Lumakras HS
HX CAD s/p CABG:
- stable without CP
- not on ASA since on eliquis for A fib
- admission EKG
HX Prx AF
HX CVA
- stable in SR
- HAZARDOUS WASTE REMOVER Eliquis and Amiodarone
- HAZARDOUS WASTE REMOVER Metoprolol XL
HX chr HFr EF
HX ICM
- HAZARDOUS WASTE REMOVER PO lasix
CALISTA - current Cr 1.6
HX CKD3b - baseline Cr mid 1, and eGFR mid 40s
- trend Cr
Bn HTN
- HAZARDOUS WASTE REMOVER losartan
Dyslipidemia
- HAZARDOUS WASTE REMOVER Rosuvastatin
IDDM
- on 70/30
- add ISS low
Hyperthyroidism
- on chr Methimazole
- check TSH
DVT Px: HAZARDOUS WASTE REMOVER Eliquis
Full code
IP TLM
[2025-06-25] MEDS: MORPHINE SULFATE 4 MG IV (22:19)
[2025-06-25] MEDS: ZOFRAN 4 MG IV (22:20)
[2025-06-25 22:56] LABS: Troponin I 0.016 ng/ml
[2025-06-26 00:05] VITALS: BMI 29.6
[2025-06-26 00:07] LABS: Glucose - Point of Care 93 mg/dl (70-99)
[2025-06-26 00:31] VITALS: BP 140/82
[2025-06-26 01:05] VITALS: BMI 29.6
[2025-06-26] MEDS: MORPHINE SULFATE 2 MG IV ×3 (01:49→17:13)
[2025-06-26 03:00] VITALS: BP 156/68
--- NOTE | 2025-06-26 04:06 | PTCARENOTE ---
Pt arrived from ED Via stretcher at 00:00 and ambulated from stretcher to bed. Pt oriented to room, seizure pads on rails, no seizure activity noted. call santos within reach, bed in lowest position. Will continue plan of care.
[2025-06-26 05:52] LABS: Hematocrit 30.9 % (39.0-52.0); Hemoglobin 9.5 g/dL (13.0-18.0); Mean Corp Hgb Conc. 30.7 g/dL (33.0-37.0); Mean Corpuscular Volume 89.3 fL (80.0-94.0); Nucleated Red Blood Cells % 0 % (-); Platelet Count 237 10^3/uL (130-400); Red Cell Dist. Width 15.9 % (11.5-14.5)
[2025-06-26 06:02] LABS: Ammonia < 9 umol/L (9-30)
[2025-06-26 06:44] LABS: TSH 8.82 uIU/ml (0.47-4.68)
[2025-06-26 08:05] LABS: Glucose - Point of Care 102 mg/dl (70-99)
[2025-06-26] MEDS: NOVOLOG FLEXPEN-LOW RESISTANCE SC (08:08)
[2025-06-26] MEDS: ELIQUIS 2.5 MG PO ×2 (08:09→20:19)
[2025-06-26] MEDS: PACERONE 200 MG PO (08:09)
[2025-06-26] MEDS: LASIX 20 MG PO (08:13)
[2025-06-26] MEDS: TOPROL XL 25 MG PO (08:13)
[2025-06-26] MEDS: LIDOCAINE 4% PATCH 1 PATCH TOPICAL (08:14)
[2025-06-26 08:28] VITALS: BP 153/54
--- NOTE | 2025-06-26 10:06 | CON.NEURO ---
Neuro Assessment/Plan
Assessment
Head CT imgs rev'd, chronic right occipital stroke
brain MRI imgs rev'd and d/w radiologist acute high left frontal stroke
79 year old man with tiny high left frontal acute stroke --> symptomatic seizure -->respiratory distress-->PEA arrest which why no shock advised
stroke secondary prevention Eliquis
Seizure likely due to the acute stroke, and with source will load Keppra 3500 (40/kg) and start Keppra 500 BID (GFR 43)
check EEG
he doesn't drive (visual field)
Consultation
Order
Date of Consultation: 06/26/25
Requesting Provider: Jimenez Mayers
Reason for Consult: seizure
Subjective/Objective
Subjective Data
Date of Service: June 26, 2025
from h&p:
79M HX Prx AF on Eliquis, chr HFrEF, HTN, Dyslipidemia, Hyperthyroid on methimazole seen at ER;
- witnessed Sz like episode followed by agonal breathing and turned blue
- Immediately 2 mins of CPR by bystanders
- upon EMS arrival, AED was placed - no shock was advised
- strong carotid pulse
- then woke up and confused
- patient was covered with vomitus on arrival
Per EMS girlfriend <del>spouse</del> HX Sz but girlfriend denied she told EMS about prior HX Sz
Patient tells me that prior to the event, [place] and [place] his [place] whenever he heard a noise which was unusual to him
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
Objective Data
Vital Signs
Temp Pulse Resp BP Pulse Ox
36.7 C 73 23 153/54 96
06/26/25 08:28 06/26/25 08:28 06/26/25 08:28 06/26/25 08:28 06/26/25 08:28
Lab Results
06/26/25 05:37
06/25/25 19:37
PT 14.2 Sec (11.4-14.6) 06/25/25 19:37
INR 1.07 06/25/25 19:37
APTT 27.2 Sec (23.4-35.0) 06/25/25 19:37
Sodium 138 mmol/L (135-145) 06/25/25 19:37
Potassium 4.7 mmol/L (3.5-5.1) 06/25/25 19:37
BUN 20 mg/dl (9-20) 06/25/25 19:37
Glucose 68 mg/dl (70-99) L 06/25/25 19:37
Calcium 8.5 mg/dl (8.4-10.2) 06/25/25 19:37
Patient Allergies
tamsulosin (From Flomax) Allergy (Verified 08/13/24 09:58)
Unknown
Physical Exam
-
AAOx3, speech clear, languave intact
Left homo hemianopsia, EOMI, face symmetric
full strength b/l UE/LE
sensation intact to touch
Medications
-
Active Medications
Generic Name Dose Route Start Last Admin
Trade Name Freq PRN Reason Stop Dose Admin
Amiodarone HCl 200 mg 06/26/25 08:00 06/26/25 08:09
Amiodarone 200 Mg Tablet PO 07/24/25 07:59 200 mg
DAILY SHOLA Administration
Apixaban 2.5 mg 06/26/25 08:00 06/26/25 08:09
Apixaban (Eliquis) 2.5 Mg Tablet PO 07/24/25 07:59 2.5 mg
BID SHOLA Administration
Bisacodyl 10 mg 06/25/25 23:56
Bisacodyl 10 Mg Rectal Suppository RECTAL 07/23/25 23:55
[id number] PRN
constipation
Dextrose 12.5 grams 06/25/25 23:56
Dextrose 50% (0.5 Grams/Ml) 50 Ml Syringe IV 07/23/25 23:55
[id number] PRN
hypoglycemia
Protocol
Diazepam 5 mg 06/26/25 07:57
Diazepam 10 Mg/2 Ml Inj IV 07/24/25 07:56
ONCE PRN PRN
Seizure episode
Furosemide 20 mg 06/26/25 08:00 06/26/25 08:13
Furosemide 20 Mg Tablet PO 07/24/25 07:59 20 mg
DAILY SHOLA Administration
Glucagon 1 mg 06/25/25 23:56
Glucagon 1 Mg Vial IM 07/23/25 23:55
PRN PRN
hypoglycemia
Protocol
Insulin Aspart 0 units 06/26/25 07:30 06/26/25 08:08
Insulin Aspart Low Resistance 300 Units/3 Ml Pen.Injctr SC 07/24/25 07:29 Not Given
AC SHOLA
Protocol
Lidocaine 1 patch 06/26/25 08:00 06/26/25 08:14
Lidocaine 4% Topical Patch TOPICAL 07/24/25 07:59 1 patch
DAILY SHOLA Administration
Protocol
Methimazole 5 mg 06/27/25 08:00
Methimazole 5 Mg Tablet PO 07/25/25 07:59
MoWeFr SHOLA
Metoprolol Succinate 25 mg 06/26/25 08:00 06/26/25 08:13
Metoprolol 25 Mg Extended Release Tablet PO 07/24/25 07:59 25 mg
DAILY SHOLA Administration
Morphine Sulfate 2 mg 06/26/25 05:53 06/26/25 06:03
Morphine 2 Mg/Ml Syringe IV 07/10/25 05:52 2 mg
Q4HPRN PRN Administration
moderate to severe pain
Pantoprazole Sodium 40 mg 06/26/25 00:03
0 PO 07/24/25 00:02
DAILY PRN
heart burn
Polyethylene Glycol 17 grams 06/25/25 23:56
Polyethylene Glycol Powder 17 Grams Packet PO 07/23/25 23:55
DAILYPRN PRN
constipation
Rosuvastatin Calcium 40 mg 06/26/25 22:00
Rosuvastatin (Crestor) 20 Mg Tablet PO 07/24/25 21:59
HS SHOLA
Senna/Docusate Sodium 1 tablet 06/25/25 23:56
Docusate W/Senna (Rebecca-Colace) Tablet PO 07/23/25 23:55
BIDPRN PRN
constipation
Sodium Chloride 0 flush 06/26/25 01:00
Sodium Chloride 0.9% (Flush) Syringe IV 07/24/25 00:59
PER PROTOCOL SHOLA
Home Medications
�Medication �Instructions �Recorded
rosuvastatin 40 mg tablet (Crestor) 40 mg PO HS High cholesterol 05/21/21
metoprolol succinate 25 mg 25 mg PO DAILY Blood pressure 06/13/22
tablet,extended release 24 hr
losartan 50 mg tablet 50 mg PO HS Blood Pressure 12/29/23
acetaminophen 325 mg tablet 975 mg PO BIDPRN PRN mild pain 02/22/24
(Tylenol)
cyanocobalamin (vitamin B-12) 1 tab PO DAILY Supplement 02/22/24
insulin NPH-regular 70-30 U-100 0 unit SC AC Diabetes 02/22/24
insulin 100 unit/mL subcutaneous
pen (Humulin 70/30 U-100 KwikPen)
ondansetron 4 mg disintegrating 4 mg PO Q8H PRN nausea/vomiting 02/22/24
tablet
sotorasib 320 mg tablet (Lumakras) 960 mg PO HS ANTINEOPLASTIC 02/22/24
amiodarone 200 mg tablet 200 mg PO DAILY #30 tabs 02/24/24
methimazole 5 mg tablet 5 mg PO QMWF Thyroid 08/13/24
omeprazole 20 mg tablet,delayed 20 mg PO DAILY PRN heart burn 08/13/24
release
apixaban 2.5 mg tablet (Eliquis) 2.5 mg PO BID #60 tabs 08/17/24
furosemide 20 mg tablet 20 mg PO DAILY #30 tabs 08/17/24
loperamide 2 mg capsule 2 mg PO BID PRN loose stool #30 08/17/24
caps
simethicone 80 mg chewable tablet 80 mg PO BID #14 tabs 08/17/24
[2025-06-26 11:55] LABS: Glycohemoglobin (HgbA1c) 6.9 % (4.0-5.6)
[2025-06-26 12:07] LABS: Glucose - Point of Care 157 mg/dl (70-99)
[2025-06-26 12:16] VITALS: BP 132/74
--- NOTE | 2025-06-26 12:27 | W.PN.HOSP.TC ---
Today's Communication/Plan
-
await neuro eval
continue home med regimen
mr brain w/wo contrast
Assessment / Plan
Assessment / Plan
CT Head W/o Iv Contrast
- Stable chronic findings. No acute intracranial abnormality identified. Specifically, no acute intracranial hemorrhage.
CT Chest W/o Iv Contrast
- Subtle nondisplaced anterolateral right fifth rib fracture and lateral nondisplaced right sixth rib fracture subtle fracture also suggested involving the lateral right seventh rib.
- No retrosternal soft tissue attenuation or hematoma.
- No pneumothorax.
- Anatomic progression of posterior right lower lobe neoplasm.
- Small sliding hiatal hernia.
TTE
LVEF 40-45%
Basal inferior/inferoseptal hypokinesis.
Stage I diastolic dysfunction

1. Seizure episode
Postictal state -resolved
- No reported previous seizure episode in past
- Have history of stage IV lung cancer, MRI brain with and without contrast ordered
- Neurology evaluation requested, currently not on any AED
- IV Valium PRN ordered for any breakthrough seizures
2. Traumatic Rib fx. s/p fall
Brief arrest - presumed respiratory
R 5th rib fx. subtle nondisplaced anterolateral fx.
R 6th sixth rib fx. lateral nondisplaced fx.
R 7th rib fx. subtle fracture lateral rib fx
- due to patient requiring brief CPR
- Local pain control with Lidoderm patch
3. Right-sided lung adenocarcinoma
- on Lumakras HS
- Follows up with Dr. Michael Sanders from [facility]
4. HX CAD s/p CABG:
- stable without CP
- not on ASA since on eliquis for A fib
- admission EKG
5. H/o of parox afib
H/o of CVA
- stable in SR
- maintain on Eliquis and Amiodarone
- maintain on Metoprolol XL
Chronic systolic congestive heart failure
Ischemic cardiomyopathy
HX CKD3b - baseline Cr mid 1, and eGFR mid 40s
Essential HTN
Hyperlipidemia
IDDM
Hyperthyroidism - on chr Methimazole
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
Full code
Total time spent : 54 mins
Anticipated Discharge: Within 24 hours
Subjective/Interval History
-
Date of Service: June 26, 2025
No reported seizure episodes overnight
Denies of any ongoing issues
Objective Data
-
Labs:
Laboratory Results
06/26/25
05:37
WBC 9.3
Hgb 9.5 L
Hct 30.9 L
Plt Count 237
Vital Signs:
Vital Signs
Temp Pulse Resp BP Pulse Ox
98.4 F 65 21 132/74 94
06/26/25 12:16 06/26/25 12:16 06/26/25 12:16 06/26/25 12:16 06/26/25 12:16
I&O
06/25/25 06/26/25 06/27/25
06:59 06:59 06:59
Intake Total 240 / 240
Balance 240 / 240
Review of Systems
-
Respiratory: Reports No Symptoms
Cardiac: Reports No Symptoms
Abdomen/GI: Reports No Symptoms
Physical Exam
-
General: No Apparent Distress
HEENT: Negative Oxygen
Neuro: Awake, Alert, Oriented and No Motor Deficits
Psych: Calm
[2025-06-26] MEDS: NOVOLOG FLEXPEN-LOW RESISTANCE 1 UNITS SC ×2 (12:50→16:48)
[2025-06-26 16:13] VITALS: BP 153/66
[2025-06-26 16:25] LABS: Glucose - Point of Care 190 mg/dl (70-99)
[2025-06-26] MEDS: KEPPRA 35 MG IV (17:09)
[2025-06-26 19:55] VITALS: BP 153/77
[2025-06-26] MEDS: KEPPRA 500 MG PO (20:19)
[2025-06-26] MEDS: DILAUDID 0.25 MG IV (21:01)
[2025-06-26] MEDS: NON-FORMULARY ITEM 960 MG PO (21:04)
[2025-06-26] MEDS: CRESTOR 40 MG PO (21:05)
[2025-06-26 21:37] LABS: Glucose - Point of Care 150 mg/dl (70-99)
[2025-06-27 03:00] VITALS: BP 162/76
[2025-06-27] MEDS: MORPHINE SULFATE 2 MG IV (03:41)
[2025-06-27 06:00] VITALS: BMI 29.6
[2025-06-27 07:00] VITALS: BP 160/77
[2025-06-27 07:25] LABS: Hematocrit 29.4 % (39.0-52.0); Hemoglobin 8.9 g/dL (13.0-18.0); Mean Corp Hgb Conc. 30.3 g/dL (33.0-37.0); Mean Corpuscular Volume 90.5 fL (80.0-94.0); Platelet Count 244 10^3/uL (130-400); Red Cell Dist. Width 15.9 % (11.5-14.5)
[2025-06-27 07:47] LABS: Blood Urea Nitrogen 24 mg/dl (9-20); Calcium 8.7 mg/dl (8.4-10.2); Carbon Dioxide 22 mmol/L (22-30); Chloride 108 mmol/L (98-107); Estimated Creatinine Clearance 35 ml/min; Glucose 117 mg/dl (70-99); Potassium 5.1 mmol/L (3.5-5.1); Sodium 136 mmol/L (135-145); eGFR 40.25
[2025-06-27 07:52] LABS: Glucose - Point of Care 107 mg/dl (70-99)
[2025-06-27] MEDS: NOVOLOG FLEXPEN-LOW RESISTANCE SC (07:56)
[2025-06-27] MEDS: ELIQUIS 2.5 MG PO (07:57)
[2025-06-27] MEDS: LIDOCAINE 4% PATCH 1 PATCH TOPICAL (07:57)
[2025-06-27] MEDS: KEPPRA 500 MG PO (07:57)
[2025-06-27] MEDS: PACERONE 200 MG PO (07:58)
[2025-06-27] MEDS: TOPROL XL 25 MG PO (07:58)
[2025-06-27] MEDS: LASIX 20 MG PO (07:58)
[2025-06-27] MEDS: TAPAZOLE 5 MG PO (08:02)
[2025-06-27 11:00] VITALS: BP 159/72
--- NOTE | 2025-06-27 11:02 | CM ---
Initial assessment completed with patient who lives with his SO in a single story double wide trailer with no steps to enter. [employer] SAL[employer] patient was independent in ADL's and ambulation with a RW when outside the home. He does not drive. SO transports to
appointments. No in-home services. Does have HC-POA. No psychiatric hospitalizations. No service. PCP is Dr. Rachelle Taylor. Pharmacy is [facility] in [place] in [place]. Discharge POC: Home with no needs.
--- NOTE | 2025-06-27 11:19 | CM ---
Patient has been medically cleared for discharge to home with no additional skilled services. SO will transport home. Admission IMM signed on this date, 06/27/25, within the 48 hour timeframe.
[2025-06-27 11:57] LABS: Glucose - Point of Care 200 mg/dl (70-99)
[2025-06-27] MEDS: NOVOLOG FLEXPEN-LOW RESISTANCE 2 UNITS SC (12:33)
--- NOTE | 2025-06-27 13:23 | EEG.RPT ---
Electroencephalogram Report
Recording
Date of EE06/27/25
Type of EEG: Routine
Length of EEG recordin minutes
Done with Video Recording: Yes
Patient Status: Inpatient
Recording Conditions: Awake and Drowsy
Hyperventilation Performed: No
Photic Stimulation Performed: Yes
Report
LESS THAN 1 HOUR EEG REPORT
LESS THAN 1 HOUR EEG INTERPRETATION:
Likely unremarkable EEG for age
CLINICAL CORRELATION:
Although normative values not been established for a person of this advanced age, the patient�s symmetry of the background suggests that this study was unremarkable.
A normal EEG does not rule out a diagnosis of epilepsy. If clinical suspicion for seizure persists, a prolonged recording may be warranted.
Clinical correlation is advised.
METHODS:
A 21 channel digitized electroencephalogram (EEG) was performed using the 10/20 international system of electrode placement and one-lead of ECG recorded. The Parastructure quantitative review system was utilized.
ELECTROENCEPHALOGRAPHER IMPRESSION(S):
Quality of study
Good
Background
There was an unremarkable anterior-posterior voltage gradient of alpha frequency.
With eye opening the background activity changed to a low voltage mixture of frequencies.
There were no significant asymmetries of background activity noted.
Sleep
Drowsiness present
Photic Stimulation
No driving
ECG
Normal sinus rhythm
--- NOTE | 2025-06-27 14:39 | W.PN.HOSP.TC ---
Today's Communication/Plan
-
d/c home
Assessment / Plan
Assessment / Plan
CT Head W/o Iv Contrast
- Stable chronic findings. No acute intracranial abnormality identified. Specifically, no acute intracranial hemorrhage.
CT Chest W/o Iv Contrast
- Subtle nondisplaced anterolateral right fifth rib fracture and lateral nondisplaced right sixth rib fracture subtle fracture also suggested involving the lateral right seventh rib.
- No retrosternal soft tissue attenuation or hematoma.
- No pneumothorax.
- Anatomic progression of posterior right lower lobe neoplasm.
- Small sliding hiatal hernia.
TTE
LVEF 40-45%
Basal inferior/inferoseptal hypokinesis.
Stage I diastolic dysfunction

1. Seizure episode
Postictal state -resolved
- No reported previous seizure episode in past
- MR brain w wo contrast showing questionable punctate left frontal lobe stroke
- Neuro recommended empiric keppra 500mg/bid at discharge.
- Neurology evaluation requested, currently not on any AED
- IV Valium PRN ordered for any breakthrough seizures
2. Traumatic Rib fx. s/p fall
Brief arrest - presumed respiratory
R 5th rib fx. subtle nondisplaced anterolateral fx.
R 6th sixth rib fx. lateral nondisplaced fx.
R 7th rib fx. subtle fracture lateral rib fx
- due to patient requiring brief CPR
- Local pain control with Lidoderm patch
3. Right-sided lung adenocarcinoma
- on Lumakras HS
- Follows up with Dr. Michael Sanders from [facility]
4. HX CAD s/p CABG:
- stable without CP
- not on ASA since on eliquis for A fib
- admission EKG
5. H/o of parox afib
H/o of CVA
- stable in SR
- maintain on Eliquis and Amiodarone
- maintain on Metoprolol XL
Chronic systolic congestive heart failure
Ischemic cardiomyopathy
HX CKD3b - baseline Cr mid 1, and eGFR mid 40s
Essential HTN
Hyperlipidemia
IDDM
Hyperthyroidism - on chr Methimazole
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
Full code
More than 30 minutes spent in discharge including
Final examination of the patient
Summarizing hospital stay
Instructions for continuing care to all relevant caregivers
Preparation of discharge records, prescriptions, and referral forms
Total time spent (in minutes): 39 mins
Anticipated Discharge: Today
Subjective/Interval History
-
Date of Service: June 27, 2025
no new complains overnight
no further seizure episode
Objective Data
-
Labs:
Laboratory Results
06/27/25
06:42
WBC 8.2
Hgb 8.9 L
Hct 29.4 L
Plt Count 244
Sodium 136
Potassium 5.1
Chloride 108 H
Carbon Dioxide 22
BUN 24 H
Creatinine 1.7 H
Glucose 117 H
Calcium 8.7
Vital Signs:
Vital Signs
Temp Pulse Resp BP Pulse Ox
98.0 F 62 18 159/72 95
06/27/25 11:00 06/27/25 11:00 06/27/25 11:00 06/27/25 11:00 06/27/25 11:00
I&O
06/26/25 06/27/25 06/28/25
06:59 06:59 06:59
Intake Total 240 / 240 1380 / 1380
Output Total 800 / 800
Balance 240 / 240 580 / 580
Review of Systems
-
Respiratory: Reports No Symptoms
Cardiac: Reports No Symptoms
Abdomen/GI: Reports No Symptoms
Physical Exam
-
General: No Apparent Distress
HEENT: Negative Oxygen
Neuro: Awake, Alert, Oriented and No Motor Deficits
Psych: Calm
[2025-06-27 15:00] VITALS: BP 161/73
--- NOTE | 2025-06-30 15:02 | W.DCSUMMARY ---
Discharge Summary
Discharge Data
Date of Admission: 06/25/25
Date of Discharge: 06/27/25
-
Pending Results: No
Hospital Course
Discharging Physician : Dr Bhavik Higuera
Disposition : To home
Primary care physician : Dr Anam Lemos
Principal Discharge diagnosis :
Seizure episode
Brief cardiopulmonary arrest
Traumatic rib fracture
Left frontal lobe punctate stroke
Chronic Discharge diagnosis :
History of right sided lung adenocarcinoma
History of coronary disease with bypass
History of paroxysmal atrial fibrillation
History of stroke
Chronic systolic congestive heart failure
Ischemic cardiomyopathy
History of chronic kidney disease stage IIIb
Essential hypertension
Hyperlipidemia
Insulin-dependent diabetes mellitus
Hyperthyroidism
Hospital Course :
Patient is a 79-year-old male with admission past medical history was brought in to ER after having witnessed seizure episode. Patient was apparently in the restaurant where patient lost consciousness and was noticed to having jerking body
movements. Patient was noted to have agonal breathing and required 2 minutes of CPR by bystanders. Patient regained consciousness and was noted to be somewhat disoriented/confused. In ER patient had CT head which did not show any acute
abnormality. CT chest without IV contrast was done which showed right sided nondisplaced 5th and 6th rib fracture no associated pneumothorax was noted. Patient was admitted to hospital for further monitoring. Neurology was involved in care and
patient had a follow-up MRI brain with and without contrast which showed a small questionable right frontal stroke. The area involved was pinpoint/punctate neurology was not convinced of this being a true stroke.
Neurology recommended patient to be maintained on empiric Keppra for time being. Patient was provided symptomatic care for rib fracture pain. Patient was discharged home with follow-up with primary care physician in office.
Important imaging findings :
None
Procedure findings :
None
Discharge Plan
-
Patient Disposition: Home (Routine Discharge)
Discharge Diagnosis/Procedures: Seizure episode
Condition: Fair
Activity: As tolerated
Driving Restrictions: No driving
Bathing Restrictions: OK to Shower
Referrals:
Anam Lemos MD [Family Provider, Family Practice] - in one day
Prescriptions:
New
levetiracetam 500 mg Tablet
500 mg PO BID Qty: 60 1RF
Continued
rosuvastatin [Crestor] 40 MG tablet
40 mg PO HS
metoprolol succinate 25 mg Tablet Extended Release 24 Hr
25 mg PO DAILY
losartan 50 mg Tablet
50 mg PO HS
acetaminophen [Tylenol] 325 mg Tablet
975 mg PO BIDPRN PRN (Reason: mild pain)
ondansetron 4 mg Tablet,Disintegrating
4 mg PO Q8H PRN (Reason: nausea/vomiting)
Humulin 70/30 U-100 KwikPen 100 unit/mL (70-30) insulin pen
0 unit SC 4-8XD
Patient Comments:
02/22/2024, pt. uses this med. on a sliding scale but does not know what that sliding scale is; per pt., when he injects 10 units, his BS decreases by 100.
Lumakras 320 mg Tablet
960 mg PO HS
cyanocobalamin (vitamin B-12) tablet
1 tab PO DAILY
amiodarone 200 mg tablet
200 mg PO DAILY Qty: 30 2RF
omeprazole 20 mg Tablet,Delayed Release (Dr/Ec)
20 mg PO DAILY PRN (Reason: heart burn)
methimazole 5 mg tablet
5 mg PO QMWF
Eliquis 2.5 mg Tablet
2.5 mg PO BID Qty: 60 0RF
loperamide 2 mg Capsule
2 mg PO BID PRN (Reason: loose stool) Qty: 30 0RF
furosemide 20 mg Tablet
20 mg PO DAILY Qty: 30 0RF
simethicone 80 mg Tablet,Chewable
80 mg PO BID Qty: 14 0RF
Discharge Orders:
Discharge Patient (As Directed); Ordered 06/27/25
Ordered By: Bhavik Higuera
Discharge Date and Time
Discharge Date/Time: 06/27/25 17:43
Print Language: GERMAN
== END 2025-06-27 17:43 | disposition home or self-care (01) | DRG 64 ==
LOC: 3 WEST ACU 22:07
PROVIDERS: ADMITTING PHYSICIAN Internal Medicine; ATTENDING PHYSICIAN Hospitalist; CONSULT PHYSICIAN Psychiatry & Neurology Clinical Neurophysiology; EMERGENCY PHYSICIAN Student in an Organized Health Care Education/Training Program; FAMILY PHYSICIAN Family Medicine
DX: I63.89 Other cerebral infarction (principal); I46.8 Cardiac arrest due to other underlying condition; C34.91 Malignant neoplasm of unspecified part of right bronchus or lung; S22.41XA Multiple fractures of ribs, right side, initial encounter for closed fracture; I13.0 Hypertensive heart and chronic kidney disease with heart failure and stage 1 through stage 4 chronic kidney disease, or unspecified chronic kidney disease; I50.22 Chronic systolic (congestive) heart failure; N17.9 Acute kidney failure, unspecified; R56.9 Unspecified convulsions; S50.312A Abrasion of left elbow, initial encounter; E11.22 Type 2 diabetes mellitus with diabetic chronic kidney disease; N18.32 Chronic kidney disease, stage 3b; I25.10 Atherosclerotic heart disease of native coronary artery without angina pectoris; N40.0 Benign prostatic hyperplasia without lower urinary tract symptoms; E05.90 Thyrotoxicosis, unspecified without thyrotoxic crisis or storm; I48.91 Unspecified atrial fibrillation; J44.9 Chronic obstructive pulmonary disease, unspecified; K21.9 Gastro-esophageal reflux disease without esophagitis; I25.5 Ischemic cardiomyopathy; G47.33 Obstructive sleep apnea (adult) (pediatric); E78.00 Pure hypercholesterolemia, unspecified; I25.2 Old myocardial infarction; Z87.891 Personal history of nicotine dependence; Z86.73 Personal history of transient ischemic attack (TIA), and cerebral infarction without residual deficits; Z95.1 Presence of aortocoronary bypass graft; Z79.84 Long term (current) use of oral hypoglycemic drugs; Z79.4 Long term (current) use of insulin; Z79.01 Long term (current) use of anticoagulants; Z79.899 Other long term (current) drug therapy
CPT/HCPCS: 70450; 70551; 71250; 80048; 80053; 82140; 82550; 82962; 83036; 84443; 84484; 85025; 85027; 85610; 85730; 93005; 95816; 96374; 96375; 99285

== ENCOUNTER 2025-07-10 14:14 | Emergency (ER) | payer MEDICARE, OTHER, SELFPAY ==
[2025-07-10 14:20] VITALS: BP 136/110; BMI 29.9
[2025-07-10 14:29] LABS: Hematocrit 35.2 % (39.0-52.0); Hemoglobin 10.7 g/dL (13.0-18.0); Mean Corp Hgb Conc. 30.4 g/dL (33.0-37.0); Mean Corpuscular Volume 91.4 fL (80.0-94.0); Nucleated Red Blood Cells % 0 % (-); Platelet Count 351 10^3/uL (130-400); Red Cell Dist. Width 15.9 % (11.5-14.5)
--- NOTE | 2025-07-10 14:50 | ED.GENMED ---
History of Present Illness
General
Chief Complaint: Cardiac Symptoms
Time Seen by Provider: 07/10/25 14:42
History of Present Illness
History of Present Illness:
FOCUSED PAST MEDICAL HISTORY
- History of paroxysmal A-fib, diabetic neuropathy, CAD status post CABG 2019, high blood pressure, hyperlipidemia, renal insufficiency, IDDM, metastatic lung cancer
REVIEW OF OLD RECORDS
- I reviewed records, the patient was admitted here 06/25 through 06/27/2025. He had a witnessed seizure-like activity. He lost consciousness and had jerking body movements and noted to have agonal respiration and had 2 minutes of chest compressions
by bystanders. The patient was started on Keppra. He was placed on pain control for rib fractures seen on CT imaging.
- Echo read by Dr. Robb from 2023 showed an EF of 40% and aortic regurgitation had progressed at that time
Note:
CHIEF COMPLAINT(S)
Atrial fibrillation
HISTORY OF PRESENT ILLNESS
The patient is an 79-year-old male with a history of atrial fibrillation who presented to the emergency department after experiencing a recurrence of arrhythmia at approximately 12:00 PM today while getting up. He was aware of his condition due to a
sensation of his heart beating rapidly and feeling his pulse in his head. He denies any chest pain or shortness of breath. The patient mentioned taking apixaban but missed the dose this morning. He has had multiple episodes of atrial fibrillation in
the past ('four or five times') and has historically been managed with medications in the hospital setting. EMS administered diltiazem to slow his heart rate prior to arrival. The patient has never undergone electrical cardioversion and expressed
disinterest in pursuing it today.
The patient states he has never had an electrical cardioversion and usually gets better 'with medicine'. He is not interested in having an electrical cardioversion today.
ADDITIONAL HISTORY OBTAINED FROM SOURCES OTHER THAN THE PATIENT
Per EMS, the patient was given diltiazem en route to the hospital to manage his heart rate.
EXTERNAL RECORDS REVIEWED
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
CHRONIC MEDICAL CONDITIONS SIGNIFICANTLY AFFECTING CARE
Chronic conditions affecting care: Atrial fibrillation
SOCIAL DETERMINANTS OF HEALTH
The patient attended an event at the [employer] earlier today, which he mentioned during his visit but did not indicate any social determinants affecting his health significantly.
PHYSICAL EXAM
-- General: Well appearing in no distress
- HEENT: Moist oral mucosa
- Cardiovascular: No murmurs, tachycardic heart rate, irregular rhythm, No chest wall tenderness
- Pulmonary: No respiratory distress, breath sounds are clear and equal
- Abdomen: Soft with no peritoneal signs, no tenderness
- Neurologic: Excellent strength all extremities, no coordination deficits
- Psychiatric: Appropriate mental status, normal insight and judgement
- Extremities: Nontender, no edema, moves all extremities equally
- Skin: No rash, no lesions
PLAN
- Administer additional diltiazem to manage heart rate.
- Review hospital records to verify previous atrial fibrillation management and line appliance assembler information.
- Monitor the patient for spontaneous conversion with medication.
DIFFERENTIAL DIAGNOSIS
The Differential Diagnosis includes, in no particular order and is not limited to:
- Atrial fibrillation
- Atrial flutter
- Paroxysmal supraventricular tachycardia
- Sinus tachycardia
- Ventricular tachycardia
- Pulmonary embolism
- Myocardial infarction
- Heart failure
- Hyperthyroidism
- Valvular heart disease
SUMMARY OF ENCOUNTER
The patient presented with atrial fibrillation, identified by a sensation of rapid heart beating and palpable irregular pulse. Management included diltiazem administration by EMS, with further dosing planned. Electrical cardioversion was declined by
the patient. Hospital records review will guide further intervention and confirm follow-up cardiology care.
DIAGNOSIS
Atrial fibrillation with RVR
RADIOLOGY
-
EKG
- EKG initially had 2:50 PM showed A-fib with RVR with ventricular rate of [address] abnormality, repeat EKG at 4:33 PM showed A-fib with RVR ventricular rate of [address] abnormality
LABS
- White count 10.1, hemoglobin 10.7, creatinine 1.9, bicarb 17, troponin 0.019
UPDATE
-SUMMARY OF ENCOUNTER
The patient is an 79-year-old male who presented to the emergency department with a recurrence of atrial fibrillation. The patient declined electrical cardioversion after discussing the risks, including the need for sedation. Despite treatment with
diltiazem, his heart rate remains elevated at 130-140 BPM. A review of recent lab work indicated a slight worsening in kidney function, with creatinine levels rising from 1.6-1.7 to 1.9, potentially due to dehydration. The patient received IV fluids
to address dehydration. Historical records show a previously slightly reduced ejection fraction as noted by Dr. Robb of [facility].
PLAN
The plan is to continue monitoring the patients heart rate and consider increasing the dosage of medications to manage atrial fibrillation. Patient was educated about the potential for spontaneous conversion to a normal rhythm within the next few
hours.
INDEPENDENT REVIEW OF LABS AND INTERPRETATION OF TESTS
My independent review of renal function tests shows a creatinine level of 1.9, which indicates a mild decline from previous levels of 1.6-1.7, suggestive of mild dehydration.
MEDICATION RECONCILIATION
1. Diltiazem was administered for heart rate management.
2. Intravenous fluids were given to address potential dehydration.
MEDICAL DECISION MAKING
-Complexity of Data Reviewed: Chronic conditions affecting care include a history of atrial fibrillation. The Differential Diagnosis considered includes atrial fibrillation, atrial flutter, paroxysmal supraventricular tachycardia, sinus tachycardia,
ventricular tachycardia, pulmonary embolism, myocardial infarction, heart failure, hyperthyroidism, and valvular heart disease.
-Data:
Category 1
Non-emergency department records reviewed, include review of patients prior echocardiogram results indicating slightly low ejection fraction.
Clinical information was obtained from an independent historian, specifically confirming the role of dehydration in previous episodes.
Category 3
-
-Risk:
Prescription medication was prescribed: Diltiazem.
Consideration of Admission/Observation: Escalation of care including admission/observation was considered given the complexity and risk of the patients presenting complaint, exam findings, and/or their underlying comorbidities. However, ultimately I
feel the patient is safe for outpatient management with close follow-up. Reasoning: Work-up reassuring, does not reveal any acute life/organ threatening processes, patients symptoms well controlled upon reevaluation, reexamination is reassuring,
vitals are stable, patient agreeable with discharge, reliable for follow-up.
DIAGNOSIS
Atrial fibrillation with rapid ventricular response
The patient denies any chest pain or shortness of breath.
I did offer and consider electrocardioversion however the patient again declines.
The patient also prefers not to be admitted to the hospital; we did increase the Cardizem to 15 mg/h.
As patient again refuses to stay in the hospital, I discussed case with Dr. Keenan who recommends increasing metoprolol 25 mg to Toprol 50 mg twice daily
Past History
Past History
ED Past Medical History: Arrthythmia (Atrial fib), CAD, COPD, CVA (Left side weakness), GERD, HTN, Hypercholesterolemia, NIDDM, OK and Other (CPAP for sleep apnea, sleep apnea)
ED Past Surgical History: Appendectomy, Cardiac (CABG), Cholecystectomy, Orthopedic (right knee, Left elbow) and Other (Cataracts)
Patient has exhibited threatening behavior?: No
PSI?: No
Social History
Tobacco: Former smoker
Alcohol: Occasional
Drug: None
Personal:
Living: assisted living
Phy Exam
Physical Exam
Physical Exam:
See HPI
Course
Orders/Labs/Results
Orders:
Orders
07/10/25 14:17
Electrocardiogram (*1) Urgent
Reason for Study: Atrial Fibrillation
EKG- Treatment ONCE
07/10/25 14:20
Complete Blood Count/With Diff Urgent
Comprehensive Metabolic Panel Urgent
Free T4 Urgent
TSH Reflex To Free T4 Urgent
Comment: ADD ON
Troponin I Urgent
07/10/25 14:53
Apixaban [Eliquis] 2.5 mg PO NOW STA
07/10/25 15:00
Diltiazem 125 mg/125 ml Nss [Cardizem] 125 mg in 125 ml IV PER PROTOCOL
Initial dose in mg/hr, then titrate:: 5
Titrate to keep:: Heart rate 80-100 bpm
Titrate by mg/hr:: 15
Frequency of titrations (minutes):: 15
Maximum dose in mg/hr:: 15
07/10/25 15:56
0.9% Sodium Chloride 500 ml [Nss] 500 ml IV BOLUS
07/10/25 16:[address] Non Medication Order As Directed
Physician Order: pt refusing cardioversion; he can eat; please increased cardizem drip to 15mg/hr
Above order entered?: Yes
07/10/25 16:27
Electrocardiogram (*1) Urgent
Reason for Study: Palpitations
EKG- Treatment ONCE
07/10/25 16:44
Add On- LAB Urgent
Tests Added?: tsh reflex fT4
Abnormal Lab Results
07/10/25
14:20
RBC 3.85 L 10^6/uL
(4.70-6.10)
Hgb 10.7 L g/dL
(13.0-18.0)
Hct 35.2 L %
(39.0-52.0)
MCHC 30.4 L g/dL
(33.0-37.0)
RDW 15.9 H %
(11.5-14.5)
Absolute Neuts (auto) 8.0 H 10^3/uL
(1.4-6.5)
Absolute Lymphs (auto) 1.1 L 10^3/uL
(1.2-3.4)
Absolute Monos (auto) 0.8 H 10^3/uL
(0.1-0.6)
Neutrophils % 79.1 H %
(42.2-75.2)
Lymphocytes % 11.3 L %
(20.5-51.1)
Chloride 112 H mmol/L
(98-107)
Carbon Dioxide 17 L mmol/L
(22-30)
BUN 28 H mg/dl
(9-20)
Creatinine 1.9 H mg/dL
(0.7-1.3)
Glucose 138 H mg/dl
(70-99)
Alkaline Phosphatase 133 H U/L
(38-126)
TSH (Reflex) 12.40 H uIU/ml
(0.47-4.68)
07/10/25 14:20
07/10/25 14:20
Vital Signs
Initial and Last Documented VS:
Initial Vital Signs
Pulse Resp
134 20
07/10/25 14:19 07/10/25 14:19
Last Documented Vital Signs
Temp Pulse Resp BP Pulse Ox
36.4 C 97 12 143/85 96
07/10/25 14:20 07/10/25 18:00 07/10/25 15:00 07/10/25 18:00 07/10/25 17:45
*Pulse Oximetry
SaO2: 99
Oxygen Mode of Delivery: Room air
Patient hypoxic: no
*Critical Care Note
Total Time (30-74mins, 75-104mins- exclusive of procedures): 65min
comment:
Patient initially had heart rates in the 160s, he was placed on Cardizem bolus and drip. We had increased his Cardizem drip rate several times. I emergently discussed case with cardiology. His vital signs are very closely monitored throughout the
emergency department. His rate is overall improved while on the Cardizem drip.
ED Attending Note
-
Portions of this chart may have been created with voice recognition software.� Occasional wrong word or��sound alike� substitutions may have occurred due to the inherent limitations of voice recognition software.
Discharge Plan
Departure
Patient Disposition: Home (Routine Discharge)
Date of Disposition: 07/10/25
Time of Disposition: 18:07
Patient with high blood pressure during this ER visit?: Yes
Discharge Problem:
Atrial fibrillation with RVR
Instructions: Atrial fibrillation (DC), BLOOD PRESSURE
Prescriptions:
No Action
rosuvastatin [Crestor] 40 MG tablet
40 mg PO HS
metoprolol succinate 25 mg Tablet Extended Release 24 Hr
25 mg PO DAILY
losartan 50 mg Tablet
50 mg PO HS
acetaminophen [Tylenol] 325 mg Tablet
975 mg PO BIDPRN PRN (Reason: mild pain)
ondansetron 4 mg Tablet,Disintegrating
4 mg PO Q8H PRN (Reason: nausea/vomiting)
Humulin 70/30 U-100 KwikPen 100 unit/mL (70-30) insulin pen
0 unit SC 4-8XD
Patient Comments:
02/22/2024, pt. uses this med. on a sliding scale but does not know what that sliding scale is; per pt., when he injects 10 units, his BS decreases by 100.
Lumakras 320 mg Tablet
960 mg PO HS
cyanocobalamin (vitamin B-12) tablet
1 tab PO DAILY
amiodarone 200 mg tablet
200 mg PO DAILY Qty: 30 2RF
omeprazole 20 mg Tablet,Delayed Release (Dr/Ec)
20 mg PO DAILY PRN (Reason: heart burn)
methimazole 5 mg tablet
5 mg PO QMWF
Eliquis 2.5 mg Tablet
2.5 mg PO BID Qty: 60 0RF
loperamide 2 mg Capsule
2 mg PO BID PRN (Reason: loose stool) Qty: 30 0RF
furosemide 20 mg Tablet
20 mg PO DAILY Qty: 30 0RF
simethicone 80 mg Tablet,Chewable
80 mg PO BID Qty: 14 0RF
levetiracetam 500 mg Tablet
500 mg PO BID Qty: 60 1RF
Referrals:
Rafy Morrow MD [Active, Cardiology]
Rachelle Taylor MD [Family Provider, Family Practice]
Activity Restrictions/Additional Instructions:
I discussed everything with Dr. Keenan. He recommends that you increase the metoprolol succinate (Toprol) from one of the 25 mg pills daily to 2 pills twice daily. While in the emergency department, you are on increasing doses of Cardizem.
Shl[facility] wants you to call their office for follow-up.
Interventions
Interventions:
*Risk Screen - Suicide Last Done: 07/10/25 14:20
*General Assessment Last Done: 07/10/25 14:20
*Neglect/Abuse Screening Last Done: 07/10/25 14:20
*ED- Fall Risk Assessment Last Done: 07/10/25 14:20
*ED COVID-19 Vaccine History Last Done: 07/10/25 14:20
*Nursing Disposition Last Done: 07/10/25 18:22
ED- Pulmonary Assessment Last Done: 07/10/25 14:20
ED- Cardiac Assessment Last Done: 07/10/25 14:20
Discharge Date and Time
Discharge Date/Time: 07/10/25 18:23
Print Language: LIBYAN
[2025-07-10 14:51] LABS: Troponin I 0.019 ng/ml
[2025-07-10 15:00] VITALS: BP 131/91
[2025-07-10 15:03] LABS: ALT (SGPT) 14 U/L (0-50); AST (SGOT) 22 U/L (17-59); Albumin 4.2 g/dl (3.5-5.0); Alkaline Phosphatase 133 U/L (38-126); Blood Urea Nitrogen 28 mg/dl (9-20); Calcium 9.3 mg/dl (8.4-10.2); Carbon Dioxide 17 mmol/L (22-30); Chloride 112 mmol/L (98-107); Estimated Creatinine Clearance 31 ml/min; Glucose 138 mg/dl (70-99); Potassium 4.6 mmol/L (3.5-5.1); Sodium 138 mmol/L (135-145); Total Protein 6.8 g/dl (6.3-8.2); eGFR 35.22
[2025-07-10] MEDS: CARDIZEM 125 IV (15:05)
[2025-07-10] MEDS: ELIQUIS 2.5 MG PO (15:05)
[2025-07-10 16:01] VITALS: BP 141/59
[2025-07-10] MEDS: NSS 500 IV (16:05)
[2025-07-10 18:00] VITALS: BP 143/85
== END 2025-07-10 18:23 | disposition home or self-care (01) ==
LOC: EMR 14:14
PROVIDERS: Emergency Medicine; EMERGENCY PHYSICIAN Emergency Medicine; FAMILY PHYSICIAN Family Medicine
DX: I48.0 Paroxysmal atrial fibrillation (principal); E11.40 Type 2 diabetes mellitus with diabetic neuropathy, unspecified; I25.810 Atherosclerosis of coronary artery bypass graft(s) without angina pectoris; I10 Essential (primary) hypertension; E78.00 Pure hypercholesterolemia, unspecified; I35.1 Nonrheumatic aortic (valve) insufficiency; I25.2 Old myocardial infarction; J44.9 Chronic obstructive pulmonary disease, unspecified; I69.354 Hemiplegia and hemiparesis following cerebral infarction affecting left non-dominant side; G47.30 Sleep apnea, unspecified; N28.9 Disorder of kidney and ureter, unspecified; K21.9 Gastro-esophageal reflux disease without esophagitis; Z79.01 Long term (current) use of anticoagulants; Z79.4 Long term (current) use of insulin; Z95.1 Presence of aortocoronary bypass graft; Z87.891 Personal history of nicotine dependence; Z85.118 Personal history of other malignant neoplasm of bronchus and lung
CPT/HCPCS: 99284; 96374; 96361; 80053; 84439; 84443; 84484; 85025; 93005

== ENCOUNTER 2025-07-18 17:05 | Emergency (ER) | payer MEDICARE, OTHER, SELFPAY ==
[2025-07-18 17:07] VITALS: BP 170/78
[2025-07-18 17:35] LABS: Hematocrit 33.4 % (39.0-52.0); Hemoglobin 9.9 g/dL (13.0-18.0); Mean Corp Hgb Conc. 29.6 g/dL (33.0-37.0); Mean Corpuscular Volume 90.3 fL (80.0-94.0); Nucleated Red Blood Cells % 0 % (-); Platelet Count 322 10^3/uL (130-400); Red Cell Dist. Width 15.9 % (11.5-14.5)
[2025-07-18 18:11] LABS: ALT (SGPT) 14 U/L (0-50); AST (SGOT) 18 U/L (17-59); Albumin 4.3 g/dl (3.5-5.0); Alkaline Phosphatase 107 U/L (38-126); Blood Urea Nitrogen 19 mg/dl (9-20); Calcium 9.2 mg/dl (8.4-10.2); Carbon Dioxide 21 mmol/L (22-30); Chloride 110 mmol/L (98-107); Glucose 67 mg/dl (70-99); Potassium 5.6 mmol/L (3.5-5.1); Sodium 140 mmol/L (135-145); Total Protein 6.7 g/dl (6.3-8.2); eGFR 37.58
== END 2025-07-18 19:37 ==
LOC: EMR 17:05
PROVIDERS: Emergency Medicine
DX: R53.1 Weakness (principal); Z53.21 Procedure and treatment not carried out due to patient leaving prior to being seen by health care provider
CPT/HCPCS: 99281; 80053; 85025; 93005

== ENCOUNTER → 2025-08-24 10:59 | Outpatient (REF) | payer MEDICARE, OTHER, SELFPAY ==
[2025-08-24 11:09] LABS: Glucose 104 mg/dl (70-99)
== END ==
LOC: PET 10:59
PROVIDERS: ATTENDING PHYSICIAN Internal Medicine Hematology & Oncology
DX: C34.31 Malignant neoplasm of lower lobe, right bronchus or lung (principal); R79.9 Abnormal finding of blood chemistry, unspecified; E03.9 Hypothyroidism, unspecified; D64.9 Anemia, unspecified; E87.20 Acidosis, unspecified
CPT/HCPCS: 36415; 82947

== ENCOUNTER 2025-11-08 08:54 | Emergency (ER) | payer MEDICARE, OTHER, SELFPAY ==
[2025-11-08 09:02] VITALS: BP 144/73
[2025-11-08 09:05] VITALS: BP 144/73
[2025-11-08 09:08] VITALS: BMI 30.7
--- NOTE | 2025-11-08 09:08 | ED.GENMED ---
History of Present Illness
General
Chief Complaint: Cold/Flu/URI Symptoms
Source: patient and records
Exam Limitations: none
Time Seen by Provider: 11/08/25 08:59
Nursing documentation reviewed up to this point in time: agreed with
History of Present Illness
History of Present Illness:
80-year-old male with a past medical history as noted significant for COPD, lung cancer currently on immunotherapy, atrial fibrillation on Eliquis, insulin-dependent diabetes, CAD status post CABG who presents to the emergency department for
evaluation of cough. Patient reports symptoms have been ongoing for the past week. He says he has had a cough productive of yellowish-green sputum; this morning he started to notice blood mixed with sputum which prompted visit to the ER. He has
also had mild sore throat recently, some mild congestion and mild fatigue. He has not had any chest pain. He does not feel short of breath. He has not had any nausea or vomiting/hematemesis. He denies any swelling in the legs. Denies other
acute complaints.
Past History
Past History
ED Past Medical History: Arrthythmia (Atrial fib), CAD, COPD, CVA (Left side weakness), GERD, HTN, Hypercholesterolemia, NIDDM, HI and Other (CPAP for sleep apnea, sleep apnea)
ED Past Surgical History: Appendectomy, Cardiac (CABG), Cholecystectomy, Orthopedic (right knee, Left elbow) and Other (Cataracts)
Patient has exhibited threatening behavior?: No
PSI?: No
Social History
Tobacco: Former smoker
Alcohol: Occasional
Drug: None
Personal:
Living: assisted living
Review of Systems
Review of Systems
All Other Systems: ROS reviewed and negative except as documented in HPI and ROS
Constitutional: Reports fatigue; Denies fever
EENT: Reports sore throat and runny nose
Respiratory: Reports cough; Denies trouble breathing
Cardiac: Denies chest pain
ABD/GI: Denies abdominal pain, nausea or vomiting
: Denies flank pain
Musculoskeletal: Denies edema, neck pain or back pain
Neurological: Denies headache
Phy Exam
Physical Exam
Physical Exam:
General: Awake, alert, oriented x3; no acute distress
Head: Normocephalic, atraumatic
Eyes: Conjunctiva normal, sclera anicteric
Throat: Airway intact, handling secretions
Neck: Trachea midline, supple without meningismus
Lungs: No tachypnea or hypoxia, frequent coughing throughout examination; patient has rales right greater than left lung base, no focal wheezing appreciated
Heart: Regular rate and rhythm, no murmurs, gallops, or rubs appreciated; midline scar from prior CABG
Abd: Soft, non distended, nontender
Neuro: Grossly intact
Skin: Warm and dry
Extremities: No edema in extremities, warm and well-perfused
Scores
Heart Failure Risk
Heart Failure Risk Score: Not Applicable
Heart Score for Chest Pain Patients
STEMI patient?: Not applicable
Withdrawal Assessment of Alcohol
Withdrawal Assessment Completed?: Not applicable
Course
Orders/Labs/Results
Orders:
Orders
11/08/25 09:08
CR Chest - 2 Views Urgent
Comment:
Reason For Exam: productive cough with scant hemoptysis
11/08/25 09:11
Comprehensive Metabolic Panel Urgent
11/08/25 09:12
COVID-19 Antigen Urgent
Source: Nasal Swab
Complete Blood Count/With Diff Urgent
Influenza A+B Rapid Molecular Urgent
TREVA Source: Nasal Swab
Specimen Description:
11/08/25 09:50
Azithromycin 500 mg/250 ml [Zithromax Infusion] 500 mg in 250 ml IV NOW
CefTRIAXone [Rocephin] 1,000 mg IV NOW STA
11/08/25 09:57
Electrocardiogram (*1) Urgent
Reason for Study: QTc Monitoring
EKG- Treatment ONCE
11/08/25 11:08
Blood Culture Q30M
TREVA Source: Blood/Venous
Specimen Description:
Blood Culture Q30M
TREVA Source: Blood/Venous
Specimen Description:
Abnormal Lab Results
11/08/25 11/08/25
09:11 09:12
WBC 13.2 H 10^3/uL
(4.8-10.8)
RBC 3.67 L 10^6/uL
(4.70-6.10)
Hgb 11.2 L g/dL
(13.0-18.0)
Hct 34.8 L %
(39.0-52.0)
MCV 94.8 H fL
(80.0-94.0)
MCHC 32.2 L g/dL
(33.0-37.0)
RDW 17.9 H %
(11.5-14.5)
Absolute Neuts (auto) 11.0 H 10^3/uL
(1.4-6.5)
Absolute Lymphs (auto) 0.9 L 10^3/uL
(1.2-3.4)
Absolute Monos (auto) 1.1 H 10^3/uL
(0.1-0.6)
Neutrophils % 83.9 H %
(42.2-75.2)
Lymphocytes % 7.1 L %
(20.5-51.1)
Sodium 134 L mmol/L
(135-145)
Chloride 109 H mmol/L
(98-107)
Carbon Dioxide 16 L mmol/L
(22-30)
BUN 24 H mg/dl
(9-20)
Creatinine 1.4 H mg/dL
(0.7-1.3)
Glucose 153 H mg/dl
(70-99)
Total Protein 6.1 L g/dl
(6.3-8.2)
11/08/25 09:12
11/08/25 09:11
Vital Signs
Initial and Last Documented VS:
Initial Vital Signs
BP Pulse Ox
144/73 91
11/08/25 09:02 11/08/25 09:02
Last Documented Vital Signs
Temp Pulse Resp BP Pulse Ox
37.4 C 95 20 144/73 93
11/08/25 09:05 11/08/25 09:05 11/08/25 09:05 11/08/25 09:05 11/08/25 09:12
MDM/Problems Addressed
Differential Diagnosis Includes:
Persistent cough/hemoptysis: Pneumonia, bronchitis, COPD exacerbation, viral syndrome with postnasal drip; less likely PE as cause of hemoptysis with no chest pain or dyspnea, no tachypnea or tachycardia with patient on Eliquis and compliant
MDM/Problems Addressed:
80-year-old male presents for evaluation of persistent productive cough with some hemoptysis this morning associated with other URI type symptoms recently. Vitals and exam are as above. Will plan to place an IV and check basic labs; will check
viral swabs. Will check chest x-ray. Will reassess after the above.
Labs reviewed: CBC shows leukocytosis to 13.2 with predominant neutrophils. CMP shows CKD which is chronic, mild nongap acidosis which is chronic. Chest x-ray reviewed by me shows right lower lung opacity�this is the area of his malignancy but
opacity appears increased compared to prior imaging overall suspect likely superimposed pneumonia. Plan to treat with antibiotics, will admit for continued care given multiple SIRS, age, background lung disease. Discussed with hospitalist for
admission.
Hospitalist evaluated patient, they feel stable for trial of outpatient management of his pneumonia. Patient feels comfortable with this plan. Will discharge with strict return precautions. All questions answered.
Chronic conditions affecting care:
COPD, lung cancer, A-fib on Eliquis
*Radiology
Radiology exam reviewed: preliminary read by ED provider
*Pulse Oximetry
SaO2: 93
Oxygen Mode of Delivery: Room air
Patient hypoxic: no (93%)
*Critical Care Note
Total Time (30-74mins, 75-104mins- exclusive of procedures): Not Applicable
Data Reviewed
Source: patient and records
Patient Management
Discussion with other providers: Hospitalist (Discussed with hospitalist)
Escalation/DeEscalation of care consider admission/obs:
Admission indicated
ED Attending Note
-
Portions of this chart may have been created with voice recognition software.� Occasional wrong word or��sound alike� substitutions may have occurred due to the inherent limitations of voice recognition software.
Discharge Plan
Departure
Patient Disposition: Home (Routine Discharge)
Date of Disposition: 11/08/25
Time of Disposition: 09:55
Patient with high blood pressure during this ER visit?: Yes
Discharge Problem:
Pneumonia
Instructions: Pneumonia in adults
Prescriptions:
New
amoxicillin-pot clavulanate 875-125 mg tablet
1 tab PO BID Qty: 20 0RF
azithromycin [Zithromax] 250 mg tablet
250 mg PO DAILY Qty: 4 0RF
No Action
rosuvastatin [Crestor] 40 MG tablet
40 mg PO HS
metoprolol succinate 25 mg Tablet Extended Release 24 Hr
25 mg PO DAILY
losartan 50 mg Tablet
50 mg PO DAILY
amiodarone 200 mg tablet
200 mg PO DAILY Qty: 30 2RF
methimazole 5 mg tablet
5 mg PO MOFR
Eliquis 2.5 mg Tablet
2.5 mg PO BID Qty: 60 0RF
levetiracetam 500 mg Tablet
500 mg PO BID Qty: 60 1RF
aspirin 81 mg Tablet,Delayed Release (Dr/Ec)
81 mg PO HS
acetaminophen 500 mg Tablet
1,000 mg PO BID
Humulin 70/30 U-100 KwikPen 100 unit/mL (70-30) Insulin Pen
0 unit SC DIRECTED
Patient Comments:
11/08/2025, pt. uses on a sliding scale BID per pt.
Lumakras 240 mg Tablet
960 mg PO HS
loperamide 2 mg capsule
2 mg PO DAILYPRN PRN (Reason: loose stool)
furosemide 20 mg tablet
20 mg PO DAILYPRN PRN (Reason: fluid retention)
cyanocobalamin (vitamin B-12) 1,000 mcg Tablet
1,000 mcg PO DAILY
Referrals:
Rachelle Taylor MD [Family Provider, Family Practice] - Follow up in 5-7 days
Activity Restrictions/Additional Instructions:
Thank you for visiting the Emergency Department at [facility].
1. Please schedule a follow up appointment as directed. Call first thing tomorrow morning to make an appointment.
2. If indicated, please take your medications as instructed and indicated on discharge paperwork.
3. If any of your symptoms do not improve, or persist, or become more severe within 6-12 hours, please return to the emergency department for further care.
4. Please return to the emergency department if you develop a headache, neck pain/stiffness, fever greater than 100.4F, chest pain, shortness of breath, persistent nausea, vomiting, slurred speech, difficulty walking, numbness/tingling, weakness,
signs of infection or any other symptoms that are worrisome to you.
Please call [phone] if you have any questions.
Interventions
Interventions:
*Neglect/Abuse Screening Last Done: 11/08/25 09:07
*ED COVID-19 Vaccine History Last Done: 11/08/25 09:08
*ED Influenza Vaccine History Last Done: 11/08/25 09:08
[facility] Fall Risk Assessment Tool Last Done: 11/08/25 09:07
*Risk Screen - Suicide (C-SSRS) Last Done: 11/08/25 09:07
Discharge Date and Time
Print Language: MACEDONIAN
[2025-11-08 09:26] LABS: Hematocrit 34.8 % (39.0-52.0); Hemoglobin 11.2 g/dL (13.0-18.0); Mean Corp Hgb Conc. 32.2 g/dL (33.0-37.0); Mean Corpuscular Volume 94.8 fL (80.0-94.0); Nucleated Red Blood Cells % 0 % (-); Platelet Count 302 10^3/uL (130-400); Red Cell Dist. Width 17.9 % (11.5-14.5)
[2025-11-08 09:43] LABS: ALT (SGPT) 17 U/L (0-50); AST (SGOT) 20 U/L (17-59); Albumin 3.6 g/dl (3.5-5.0); Alkaline Phosphatase 96 U/L (38-126); Blood Urea Nitrogen 24 mg/dl (9-20); Calcium 8.8 mg/dl (8.4-10.2); Carbon Dioxide 16 mmol/L (22-30); Chloride 109 mmol/L (98-107); Estimated Creatinine Clearance 47 ml/min; Glucose 153 mg/dl (70-99); Potassium 4.9 mmol/L (3.5-5.1); Sodium 134 mmol/L (135-145); Total Protein 6.1 g/dl (6.3-8.2); eGFR 50.49
[2025-11-08 09:48] LABS: COVID-19 Antigen Negative (Negative)
[2025-11-08] MEDS: ROCEPHIN 1000 MG IV (11:16)
[2025-11-08] MEDS: ZITHROMAX INFUSION 250 IV (11:16)
--- NOTE | 2025-11-08 15:25 | CM ---
Patient seen at bedside with in ED. Patient stated Dr. Rachelle Gauthier is his PCP and he uses the [facility] in [place]. Patient lives in a ranch style home with no DME. Patient plan is home with and follow up with PCP. CM will continue
to follow for discharge planning needs.
Plan; home with no needs.
--- NOTE | 2025-11-08 15:44 | CON.MD ---
Consultation - Medical
-
Mr Nagel is an 80 year old male with Past medical history significant for COPD, Lung Ca on Lumacras, MYKE, Htn, CAD s/p qple bypass, HLD, IDDM, P. afib, bph, ckd 3b who presented to the ED due to over a weeks history of Productive cough.
He was in his usual state of health until over a week ago when he developed cough, cough has been productive of yellowish-green sputum, however noticed this morning to be mixed with blood.sputum which prompted visit to the ER. There is associated
had mild sore throat, some mild congestion, headache and mild fatigue.
He denies fever, chest pain, dyspnea, palpitations, legs welling or dizziness. He is having normal bowel and bladder function. Denies history of contact.
On presentation to the ED, he was in no obvious distress, AFVSS, investigations done showed Leucocytosis with relative neutrophilia, Cr is elevated, mild hyponatremia and NAGMA but alll at baseline.
Cxr done showed R L lung opacities suggestive of lobal pneumonia. EKG NSR.
On examination patient complains currently of productive cough with hemoptysis, denies other symptoms.
He is an elderly man, met lying in bed, he is obese, appears his stated age, not in any obvious distress is present at bedside.
He is breathing comfortably at room air, speaks in full sentences.
Heart sound is regular, s1 s2 heard with low Milner systolic murmur
He is breathing comfortably, not tachypneic and no accessory muscle use, some inspiratory rales heard on the right lower lung zones at the back.
Abdomen is protuberant(obese) moves with respiration, bowel sounds are heard, non-tender.
Moves all extremities without difficulty, they are warm and well perfused, no pedal edema.
Ass/plan
Patient with Right lower lung community acquired lobar pneumonia, in no respiratory distress.
Hemoptysis could be from mucosal trauma.
His vitals are stable, tolerating orally, and not in any obvious distress.
Curb 65 is 1 for age.
Recommendation is for out patient treatment with oral Antibiotics (Augmentin 625mg bid for 7 days), symptomatic treatment with Robitussin and to keep hydrated and, short follow up with primary care within 2-3 days.
He is counselled on symptoms and signs to watch out for in case of worsening of condition and no improvement, to reach to his primary care or re-present to ED
Consultation
-
Date/Time Consultation Requested: 11/08/2025 10:10am
Date/Time Consultation Performed: 11/08/2025 11:30am
Requesting Provider: Garth Benton MD
Performing Provider: Lis Roberson MD, Jony Montes MD
Reason for Consultation: Pneumonia
--- NOTE | 2025-11-08 19:56 | CON.HOSP ---
Consultation
-
Date/Time Consultation Requested: 11/08/25 10:09 AM
Date/Time Consultation Performed: 11/08/25 12:00 PM
Requesting Provider: Dr. Garth Benton
Performing Provider: Dr. Karol Hays with Dr. Sera Borges
Reason for Consultation: possible admission
Family Physician
-
Family Physician: Rachelle Taylor MD
Chief Complaint
-
cough/blood streaked sputum
History of Present Illness
Pt is an 80 year old male who was in his usual state of health until over a week ago when he developed cough. Cough has been productive of yellowish-green sputum, however noticed this morning to be mixed with blood which prompted visit to the ER.
There is associated mild sore throat, some mild congestion, headache and mild fatigue. He denies fever, chest pain, dyspnea, palpitations, legs welling or dizziness. He is having normal bowel and bladder function. Denies history of contact.
Medical History
Past Medical History
Past Medical History: Reports Other
Additional Past Medical History:
Chronic obstructive pulmonary disease
Lung cancer on Lumacras
Obstructive sleep apnea
Essential hypertension
Coronary artery disease status post quadruple bypass
Hyperlipidemia
Type 2 diabetes mellitus insulin requiring
Paroxysmal atrial fibrillation
Benign prostatic hyperplasia
Chronic kidney disease stage IIIb
Past Surgical History: Reports Other
Additional Past Surgical History:
Orthopedic surgeries
Coronary artery disease with quadruple bypass
Social History
Tobacco: Former Smoker (Quit 50 years ago)
Alcohol: Occasional
Drug: None
Personal:
Living: With Family
Family History
Family History: Other (Father of a heart attack, mother of an aneurysm)
Allergies / Home Medications
Allergies reflects when Allergies were last updated in [facility].
Home Medications with original date entered in [facility]
Allergy/Medication List:
Allergies
Allergy/AdvReac Type Severity Reaction Status Date / Time
tamsulosin (From Flomax) Allergy Unknown Verified 11/08/25 09:08
Home Medications
rosuvastatin 40 mg tablet (Crestor) 40 mg PO HS High cholesterol 05/21/21
metoprolol succinate 25 mg tablet,extended release 24 hr 25 mg PO DAILY Blood pressure 06/13/22
losartan 50 mg tablet 50 mg PO DAILY Blood Pressure 12/29/23
amiodarone 200 mg tablet 200 mg PO DAILY #30 tabs 02/24/24
methimazole 5 mg tablet 5 mg PO MOFR Thyroid 08/13/24
apixaban 2.5 mg tablet (Eliquis) 2.5 mg PO BID #60 tabs 08/17/24
levetiracetam 500 mg tablet 500 mg PO BID #60 tabs 06/27/25
acetaminophen 500 mg tablet 1,000 mg PO BID 11/08/25
amoxicillin 875 mg-potassium clavulanate 125 mg tablet 1 tab PO BID #20 tabs 11/08/25
aspirin 81 mg tablet,delayed release 81 mg PO HS 11/08/25
azithromycin 250 mg tablet (Zithromax) 250 mg PO DAILY #4 tabs 11/08/25
cyanocobalamin (vitamin B-12) 1,000 mcg tablet 1,000 mcg PO DAILY 11/08/25
furosemide 20 mg tablet 20 mg PO DAILYPRN PRN fluid retention 11/08/25
insulin NPH-regular 70-30 U-100 insulin 100 unit/mL subcutaneous pen (Humulin 70/30 U-100 KwikPen) 0 unit SC DIRECTED sliding scale 11/08/25
loperamide 2 mg capsule 2 mg PO DAILYPRN PRN loose stool 11/08/25
sotorasib 240 mg tablet (Lumakras) 960 mg PO HS 11/08/25
Review of Systems
-
History Source: Patient
Constitutional: Denies Fever, Weight Gain, Weight Loss or Chills
EENT: Reports Sore Throat
Respiratory: Reports Cough and Hemoptysis
Cardiac: Reports No Symptoms
Abdomen/GI: Reports No Symptoms
: Reports No Symptoms
Musculoskeletal: Reports Other (Malaise and fatigue)
Neurological: Reports No Symptoms
Endocrine: Reports No Symptoms
Psych: Reports No Symptoms
Physical Exam
Vital Signs
Vital Signs
Temp Pulse Resp BP Pulse Ox
99.4 F 72 15 144/73 97
11/08/25 09:05 11/08/25 12:30 11/08/25 12:30 11/08/25 09:05 11/08/25 12:30
Physical Exam
General: Well Developed, Well Nourished and No Apparent Distress
HEENT: Normocephalic and Anicteric; Negative Oxygen
Respiratory: Rhonchi (Right base)
Cardiac: S1/S2, Regular Rhythm and Murmur
GI: Soft, Non Tender, Non Distended and Normal Bowel Sounds
Musculoskeletal: No Clubbing, No Cyanosis and No Edema
Skin: Warm
Neuro: Awake and Alert
Psych: Calm
Laboratory Results
-
Laboratory Results
11/08/25 09:12
11/08/25 09:11
Total Bilirubin 0.5 mg/dl (0.2-1.3) 11/08/25 09:11
AST 20 U/L (17-59) 11/08/25 09:11
ALT 17 U/L (0-50) 11/08/25 09:11
Alkaline Phosphatase 96 U/L (38-126) 11/08/25 09:11
Impression / Plan
-
Pt is an 80 year old male
Right lower lung community acquired lobar pneumonia accompanied by blood-streaked sputum--blood-tinged sputum not uncommon with pneumonia as well as likely due to mucosal trauma from coughing--patient is not requiring oxygen, saturating 96% on room
air, is afebrile, with normal heart rate--Curb65 score is 1 for age--patient does not require admission at this time--would recommend oral Augmentin twice daily for 10 days--he has been instructed to return to the hospital if breathing is worse,
fevers, bleeding is worse--otherwise he should follow-up with his primary care physician within a week of discharge
Chronic obstructive pulmonary disease--no exacerbation
Paroxysmal atrial fibrillation--rate controlled--continue amiodarone and Eliquis
Essential hypertension--continue furosemide, losartan, metoprolol as able
Hyperthyroidism--continue methimazole
History of lung cancer--continue Lumakras
Hyperlipidemia--continue Crestor
CODE STATUS--full code
Thank you for allowing us to consult on your patient. Recommendations have been relayed to the emergency department physician.
== END 2025-11-08 13:20 | disposition home or self-care (01) ==
LOC: EMR 08:54
PROVIDERS: EMERGENCY PHYSICIAN Emergency Medicine; FAMILY PHYSICIAN Family Medicine; OTHER PHYSICIAN Internal Medicine
DX: J18.9 Pneumonia, unspecified organism (principal); J44.0 Chronic obstructive pulmonary disease with (acute) lower respiratory infection; C34.90 Malignant neoplasm of unspecified part of unspecified bronchus or lung; E11.22 Type 2 diabetes mellitus with diabetic chronic kidney disease; I12.9 Hypertensive chronic kidney disease with stage 1 through stage 4 chronic kidney disease, or unspecified chronic kidney disease; N18.32 Chronic kidney disease, stage 3b; E78.00 Pure hypercholesterolemia, unspecified; G47.33 Obstructive sleep apnea (adult) (pediatric); I25.10 Atherosclerotic heart disease of native coronary artery without angina pectoris; Z79.01 Long term (current) use of anticoagulants; Z87.891 Personal history of nicotine dependence; Z95.1 Presence of aortocoronary bypass graft; Z86.73 Personal history of transient ischemic attack (TIA), and cerebral infarction without residual deficits; Z90.49 Acquired absence of other specified parts of digestive tract; I48.0 Paroxysmal atrial fibrillation; Z79.4 Long term (current) use of insulin; Z79.82 Long term (current) use of aspirin; Z79.60 Long term (current) use of unspecified immunomodulators and immunosuppressants; Z11.52 Encounter for screening for COVID-19
CPT/HCPCS: 96365; 96375; 99285; 71046; 80053; 85025; 87040; 87502; 87811; 93005